=== PATIENT | female | born 1970 ===

== ENCOUNTER 2020-03-04 10:55 | Outpatient (REF) | payer OTHER, SELFPAY ==
--- NOTE | 2020-03-04 11:00 | MM_ITS ---
EXAMINATION: MM SCREENING DIGITAL BREAST TOMOSYNTHESIS, BILATERAL CLINICAL INFORMATION: Screening. Asymptomatic. Family history breast cancer, mother, maternal aunt, paternal aunt. The lifetime risk of breast cancer based on the Tyrer-Cuzick Model is 24%. COMPARISON: Mammography: 02/27/2019, 03/27/2016, 09/23/2015 TECHNIQUE: Digital breast tomosynthesis is performed in both the craniocaudal and mediolateral oblique views along with computer-aided detection (CAD). Synthesized 2D images are generated from the tomosynthesis. FINDINGS: The breasts are heterogeneously dense, which may obscure small masses (ACR BI-RADS breast composition Category c). Parenchymal pattern is similar to prior studies. Oval asymmetry anterior upper left breast in MLO view is stable. Neither breast shows significant mass or developing density or architectural abnormality. There is a biopsy clip marker again seen right breast mid upper outer quadrant. Scattered diffuse bilateral punctate calcifications are again noted on each side. There are no significant changes. MM/MM tomosynthesis screening BI IMPRESSION: No significant changes from prior exam. ASSESSMENT: BI-RADS 2: Benign RECOMMENDATION: 1. Routine annual mammography screening. 2. The lifetime risk of breast cancer based on the Tyrer-Cuzick Model is 24%. Additional annual adjunct screening with breast MRI may be of benefit in women with a risk score of 20% or greater. This patient's information was entered into a reminder system with a target due date for their next mammogram.
== END 2020-03-04 10:56 | disposition home or self-care (01) ==
LOC: HO.MAMMO 10:55
PROVIDERS: Visit Provider Advanced Practice Midwife
DX: Z12.31 Encounter for screening mammogram for malignant neoplasm of breast (principal)
CPT/HCPCS: 77063; 77067

== ENCOUNTER 2020-04-07 10:29 | Outpatient (REF) | payer OTHER, SELFPAY ==
--- NOTE | ~2020-04-07 | US_ITS ---
EXAMINATION: PELVIC ULTRASOUND CLINICAL INFORMATION: Excessive and frequent menstruation. COMPARISON: None TECHNIQUE: Transabdominal and transvaginal pelvic ultrasound was performed. Transvaginal exam was performed for better visualization of the uterus and ovaries. FINDINGS: The uterus is anteverted and measures 11.3 x 3.2 x 6.5 cm. There are multiple uterine fibroids, at least 4. These measure 6.3 x 4.7 x 5.8 cm in the right cornual region, 3.4 x 2.3 x 3 cm in the anterior uterine body, 0.7 x 0.6 x 0.7 cm in the anterior uterine body and 1.8 x 1.1 x 1.4 cm subserosal to the posterior uterine body. Endometrial thickness is normal, estimated at 1 cm. There are nabothian cysts in the cervix. The right ovary is not seen. The left ovary is normal-appearing and measures 2.2 x 1.6 x 1.8 cm. There is no fluid in the pelvis. US/US pelvic complete IMPRESSION: Fibroid uterus. Normal-appearing left ovary. Right ovary not seen.
--- NOTE | ~2020-04-07 | US_ITS ---
EXAMINATION: PELVIC ULTRASOUND CLINICAL INFORMATION: Excessive and frequent menstruation. COMPARISON: None TECHNIQUE: Transabdominal and transvaginal pelvic ultrasound was performed. Transvaginal exam was performed for better visualization of the uterus and ovaries. FINDINGS: The uterus is anteverted and measures 11.3 x 3.2 x 6.5 cm. There are multiple uterine fibroids, at least 4. These measure 6.3 x 4.7 x 5.8 cm in the right cornual region, 3.4 x 2.3 x 3 cm in the anterior uterine body, 0.7 x 0.6 x 0.7 cm in the anterior uterine body and 1.8 x 1.1 x 1.4 cm subserosal to the posterior uterine body. Endometrial thickness is normal, estimated at 1 cm. There are nabothian cysts in the cervix. The right ovary is not seen. The left ovary is normal-appearing and measures 2.2 x 1.6 x 1.8 cm. There is no fluid in the pelvis. US/US transvaginal IMPRESSION: Fibroid uterus. Normal-appearing left ovary. Right ovary not seen.
== END 2020-04-07 10:30 | disposition home or self-care (01) ==
LOC: HO.US 10:29
PROVIDERS: PCP Internal Medicine; Visit Provider Advanced Practice Midwife
DX: N92.0 Excessive and frequent menstruation with regular cycle (principal)
CPT/HCPCS: 76830; 76856

== ENCOUNTER → 2020-04-27 10:01 | Outpatient (BNVA) | payer OTHER, SELFPAY | PROVIDERS: Visit Provider Urology ==

== ENCOUNTER → 2020-05-31 09:03 | Outpatient (BNVA) | payer OTHER, SELFPAY | PROVIDERS: PCP Internal Medicine; Visit Provider Urology | DX: N39.3 Stress incontinence (female) (male) (principal) | CPT/HCPCS: 81002 ==

== ENCOUNTER 2020-07-01 13:00 | Outpatient (RCR) | payer OTHER, SELFPAY ==
--- NOTE | 2020-05-27 15:38 | MHC.PT.EP ---
[facility] [place] Office [place] Office [place] Office [address] Katheryn Hart [address] [phone] F: [phone] F: [phone] F: [phone] F: [phone] Physical Therapy Plan of Care Date of Evaluation: 05/27/20 Date of Surgery: Diagnosis: Stress Incontinence Assessment: The patient arrived reporting stress urinary incontinence. After granted patient consent an internal exam was performed and the patient was found to have decreased strength and coordination of her pelvic floor muscles. Increased tissue tension noted in the left levator ani and OI, Tenderness to palpation of the tip of cervix. Stage 2 Cystourethrocele noted with more descent in standing but it remained a stage 2. Additionally, the patient had poor PF endurance, and decreased ability to do a quick contraction of her pelvic floor. She did not exhibit a pre activation of her PFM with a cough. The patient will greatly benefit from Pelvic Floor PT in order to improve coordination, and strength of her pelvic floor muscles, as well as body mechanics training with pre activation of her PFM. I will also educate her regarding a pre activation of her PFM before coughing, sneezing, and laughing when possible to decrease strain and pressure on her pelvic floor. Frequency and Duration: The patient will be seen 1x/week x 6 weeks. Short Term Goals: 1. Pt to be able to correctly activate her PFM to allow improved support to bowel and bladder. 2. Pt to be able to demonstrate a pre contraction before a cough Intermediate Goals: 1. Pt to be able to show improved PFM contraction during functional movements such as a bridge or squat to help prevent or limit POP. 2. Pt to reduce # of episodes of WAYNE during the day by 50% to help improve quality of life and reduce pad usage. 3. Pt to be independent with her final HEP for PFM in order to help maintain gains made in therapy. Treatment Plan: Modalities to reduce pain, spasms and effusion. Manual therapy to restore motion and function. Therapeutic exercise to improve strength and flexibility. Neuromuscular re-education for posture and balance. Therapeutic activities to return to functional activities of daily living. Electronically signed by: Valarie Jane PT DPT Please sign and return to therapist. Thank you for your referral.
--- NOTE | 2020-07-01 15:35 | MHC.PT.DC ---
[facility] [place] Office [place] Office [place] [facility] [address] Katheryn Hart 140 [facility] [phone] F: [phone] F: [phone] F: [phone] F: [phone] Physical Therapy Discharge Report Diagnosis: Stress Incontinence Date of Surgery: Date of Evaluation: 05/27/20 Date of Discharge: 07/01/20 Treatments to Date: 5 Cancellations to Date: No Shows to Date: Discharge Status: Achieved Goals Improved Function Independent with HEP Discharge Summary: The patient's strength is a 3/5 with some progression toward 4/5. The patient had 12 second endurance contractions, and could perform 12 quick contractions consecutively before fatigue. She is doing a great job with her HEP. I taught her how to progress the exercises. She is down to less than 1 pad a day meaning she wears a pad but sometimes it is dry. She feels in control of her bladder habits. She filled out the bladder diary and she is showing good bladder norms with her intake, and the volume of her output and # of times using the restroom. She is d/c from skilled PT due to meeting her goals. Electronically signed by: Valarie Jane PT DPT Please sign and return to therapist. Thank you for your referral.
== END 2020-07-26 08:00 | disposition home or self-care (01) ==
LOC: HO.PT 13:00
PROVIDERS: Visit Provider Urology
DX: N39.3 Stress incontinence (female) (male) (principal)
CPT/HCPCS: 97110; 97112; 97140; 97162; 97530

== ENCOUNTER → 2020-11-29 08:29 | Outpatient (BNVA) | payer OTHER, SELFPAY | DX: N39.3 Stress incontinence (female) (male) (principal) | CPT/HCPCS: 51798 ==

== ENCOUNTER 2021-03-23 09:38 | Outpatient (REF) | payer OTHER, SELFPAY ==
--- NOTE | ~2021-03-23 | MM_ITS ---
EXAMINATION: MM SCREENING DIGITAL BREAST TOMOSYNTHESIS, BILATERAL CLINICAL INFORMATION: Screening. Asymptomatic. The lifetime risk of breast cancer based on the Tyrer-Cuzick Model is 11.3%. COMPARISON: Mammography: 03/04/2020 and studies dating back to 09/23/2015. TECHNIQUE: Digital breast tomosynthesis is performed in both the craniocaudal and mediolateral oblique views along with computer-aided detection (CAD). Synthesized 2D images are generated from the tomosynthesis. FINDINGS: There are scattered areas of fibroglandular density (ACR BI-RADS breast composition Category b). There is multiplicity and bilaterality of calcifications. There are some stable circumscribed densities within the left breast. No new abnormal dominant masses or suspicious grouping of microcalcifications identified. There is question of an area of architectural distortion about the lateral aspect mid left breast however on tomosynthesis this is seen to represent superimposition of fibroglandular tissue. MM/MM tomosynthesis screening BI IMPRESSION: There are no significant changes from prior study. ASSESSMENT: BI-RADS 2: Benign. RECOMMENDATION: Routine annual mammography screening. This patient's information was entered into a reminder system with a target due date for their next mammogram.
== END 2021-03-23 09:39 | disposition home or self-care (01) ==
LOC: HO.MAMMO 09:38
PROVIDERS: PCP Internal Medicine; Visit Provider Internal Medicine
DX: Z12.31 Encounter for screening mammogram for malignant neoplasm of breast (principal)
CPT/HCPCS: 77063; 77067

== ENCOUNTER → 2021-05-30 08:49 | Outpatient (BNVA) | payer OTHER, SELFPAY | PROVIDERS: PCP Internal Medicine | DX: N39.3 Stress incontinence (female) (male) (principal) | CPT/HCPCS: 51798 ==

== ENCOUNTER 2021-08-14 10:21 | Day surgery (SDC) | payer OTHER, SELFPAY ==
--- NOTE | 2021-08-11 12:33 | P.CONAN_ITS ---
Documented by User: Gabriella Hay NP 08/11/21 12:33 HPI - Anesthesia Eval Consult details Narrative: 51yo F for Colonoscopy PMFSH Active Problems Active Problems: All Active Problems (Updated 08/10/21 @ 11:07 by VICKY Smith) Family history of colon cancer (Acute) Colon cancer screening (Acute) GERD (gastroesophageal reflux disease) (Acute) Chronic low back pain (Acute) Stress incontinence (Acute) Mixed incontinence (Acute) Past Medical History Medical History (Updated 08/10/21 @ 11:07 by VICKY Smith) HTN (hypertension) Mild acid reflux Nephrolithiasis Renal cyst, acquired Vitiligo Family History Family History (Updated 08/10/21 @ 10:35 by Faizan Beckford) Mother Diabetes HTN (hypertension) Father HTN (hypertension) Brother Colon cancer Surgical History Surgical History History of breast surgery History of hernia repair History of lithotripsy History of tubal ligation Social History Social History (Updated 08/10/21 @ 10:33 by Faizan Beckford) Household Members: Significant Other Alcohol intake: never Patient Tobacco Use Status: Never used Tobacco Are you DNR?: No Advance Directives: No Advance Directives Information Provided: Yes Meds Allergies Allergy/AdvReac Type Severity Reaction Status Date / Time No Known Allergies Allergy Verified 08/10/21 10:29 Home Medications Medication Instructions Recorded Confirmed Last Taken Type ibuprofen 800 mg tablet 800 mg PO TID 04/27/20 08/07/21 History lisinopril 10 mg tablet 10 mg PO DAILY 04/27/20 08/14/21 History omeprazole 20 mg capsule,delayed 20 mg PO DAILY 04/27/20 Unknown History release tacrolimus 0.1 % topical ointment topical 04/27/20 Unknown History triamcinolone acetonide 0.1 % topical 04/27/20 Unknown History topical ointment norethindrone (contraceptive) 0.35 0.35 mg PO DAILY 11/29/20 Unknown History mg tablet hydrochlorothiazide 25 mg tablet 1 tab PO DAILY 08/14/21 08/14/21 08/14/21 History Exam Exam Date and Time: August 11, 2021 1233 Assessment and Plan Assessment Anesthesia Assessment: Chart Reviewed Documented by User: Lorena Muñoz MD 08/14/21 12:22 [facility] Past Medical History Medical History (Updated 08/10/21 @ 11:07 by VICKY Smith) HTN (hypertension) Mild acid reflux Nephrolithiasis Renal cyst, acquired Vitiligo Family History Family History (Updated 08/10/21 @ 10:35 by Faizan Beckford) Mother Diabetes HTN (hypertension) Father HTN (hypertension) Brother Colon cancer Family history of problems with anesthesia: No Surgical History Surgical History History of breast surgery History of hernia repair History of lithotripsy History of tubal ligation History of Problems with Anesthesia: No Social History Social History (Updated 08/10/21 @ 10:33 by Faizan Beckford) Household Members: Significant Other Alcohol intake: never Patient Tobacco Use Status: Never used Tobacco Are you DNR?: No Advance Directives: No Advance Directives Information Provided: Yes Meds Allergies Allergy/AdvReac Type Severity Reaction Status Date / Time No Known Allergies Allergy Verified 08/10/21 10:29 Home Medications Medication Instructions Recorded Confirmed Last Taken Type ibuprofen 800 mg tablet 800 mg PO TID 04/27/20 08/07/21 History lisinopril 10 mg tablet 10 mg PO DAILY 04/27/20 08/14/21 History omeprazole 20 mg capsule,delayed 20 mg PO DAILY 04/27/20 Unknown History release tacrolimus 0.1 % topical ointment topical 04/27/20 Unknown History triamcinolone acetonide 0.1 % topical 04/27/20 Unknown History topical ointment norethindrone (contraceptive) 0.35 0.35 mg PO DAILY 11/29/20 Unknown History mg tablet hydrochlorothiazide 25 mg tablet 1 tab PO DAILY 08/14/21 08/14/21 08/14/21 History Exam Airway Mallampati Class: II TM Dist: >3cm Neck ROM: Full Loose/Missing/Broken Teeth: Yes (Right lower tooth missing) Heart: [id number] Lungs: cta b/l Assessment and Plan Assessment Anesthesia Assessment: Anesthesia Plan Discussed Final Anesthetic Review Family History of Problems with Anesthesia: No History of Problems with Anesthesia: No NPO: Yes ASA Class: II Final Preanesthetic Review: No Changes in Pt Med Stat, Meds/Allgs Chart Reviewed, Consent Obtained/Reviewed and Anes Risks/Benef Reviewed Patient Risk: Intermediate Procedure Risk: Intermediate Assessment/Block/Sedation in SS: Assess/Block/Sedation-SS Anesthetic Plan Anesthetic Plan: MAC: and Agree w/ Assess. and Plan Disposition: Standard PACU
[2021-08-14 11:39] VITALS: BP 122/65; PULSE 81; RESP 17; TEMP 36.1; O2SAT 97; BMI 26.1
[2021-08-14] MEDS: Lactated Ringers 1,000 ML 100 ML IVCONT (11:55)
--- NOTE | 2021-08-14 13:09 | P.BOP_ITS ---
Brief Operative Note Date of Service: 08/14/21 Pre-op diagnosis: Colon cancer screening, family history of colon polyps and cancer (brother at age 44 yrs) Post-op diagnosis: other (Hemorrhoids, sub-optimal prep, incomplete colonoscopy) Procedure: COLONOSCOPY TILL MID ASCENDING COLON Consent: Indications for the procedure and potential complications of bleeding, perforation, reaction to medications and missed diagnosis were discussed with the patient and informed consent was obtained. Instrument: Olympus PCF H 190 L variable stiffness pediatric colonoscope Monitoring: Vital signs and clinical assessment, intermittent blood pressure monitoring, continuous EKG monitoring, Pulse oximetry and Carbon Dioxide monitoring were done throughout the procedure. Colon withdrawl time was 25 minutes. Procedure: The patient was placed in the left lateral decubitis position and pre-procedure medications were administered. After a digital rectal examination of the ano-rectum, the video colonoscope was inserted into the rectum and advanced through the colon to the mid AC. It was not possible to advance further due to excessive looping of the scope. The colonoscope was slowly withdrawn in a retrograde panoramic fashion and the colon mucosa was carefully examined including a retroflexed view of the rectum. Findings and interventions are described below. Procedure Difficulty: Pt was placed in the supine position and LLQ pressure was applied to intubate the transverse colon Findings: Terminal Ileum: Not evaluated Cecum: Not evaluated Ascending Colon: Partially evaluated Transverse Colon: Normal Descending Colon: Normal Sigmoid Colon: Normal Rectum: Normal Ano-rectum: Moderate internal hemorrhoids Colon preparation: Fair despite copious irrigation and poor in some areas of the colon due to a coating of adherent stool. No large lesions seen and smaller polyps could be missed. Impression and Post Procedure Diagnosis: Colonoscopy Findings: No polyps were detecetd Moderate hemorrhoids on retroflexed exam. Plan: Patient has an appointment on 09/13/21 in the GI Clinic with Tiffanie Solano NP . Repeat Colonoscopy in 6 to 12 months due to sub-optimal prep and incomplete colonoscopy (Adult colonoscope and Mag Citrate + Bisacodyl prep for future colonoscopies - since pt vomited part of her prep). Above findings were reviewed with the patient. Surgeon: Dixie Balderas MD Anesthesia: MAC (Dr Chew) Was an Ict Support Technicians used for this Procedure?: Yes Ict Support Technicians: Chiara Abernathy Estimated blood loss (mL): 0 Pathology: none sent Condition: stable Disposition: PACU
--- NOTE | 2021-08-14 13:09 | MHC.SHP ---
Pre-Procedural Eval Section A Date of Service: 08/14/21 The patient is an INPATIENT: No Changes since office visit: Yes Patient answered all questions; No Cold of Flu in the past 2 weeks, No New Medical Problems and No Changes in Medication The History & Physical has been completed within 30 days and I have reviewed it.: Yes Section B Chief Complaint: screening,hx of malignant neoplasm Allergies: Allergies Allergy/AdvReac Type Severity Reaction Status Date / Time No Known Allergies Allergy Verified 08/10/21 10:29 Plan I have reviewed the history and physical and performed a pertinent physical examination on my patient. No changes have occurred unless specified.
--- NOTE | 2021-08-14 14:15 | W.PM.OPN ---
Operative Note Operative Note Date of Service: 08/14/21 Narrative: Pre-op diagnosis: Colon cancer screening, family history of colon polyps and cancer (brother at age 44 yrs) Post-op diagnosis:?other (Hemorrhoids, sub-optimal prep, incomplete colonoscopy) Procedure: COLONOSCOPY TILL MID ASCENDING COLON Consent: Indications for the procedure and potential complications of bleeding, perforation, reaction to medications and missed diagnosis were discussed with the patient and informed consent was obtained. Instrument: Olympus PCF H 190 L variable stiffness pediatric colonoscope Monitoring: Vital signs and clinical assessment, intermittent blood pressure monitoring, continuous EKG monitoring, Pulse oximetry and Carbon Dioxide monitoring were done throughout the procedure. Colon withdrawl time was 25 minutes. Procedure: The patient was placed in the left lateral decubitis position and pre-procedure medications were administered. After a digital rectal examination of the ano-rectum, the video colonoscope was inserted into the rectum and advanced through the colon to the mid AC. It was not possible to advance further due to excessive looping of the scope.? The colonoscope was slowly withdrawn in a retrograde panoramic fashion and the colon mucosa was carefully examined including a retroflexed view of the rectum. Findings and interventions are described below. Procedure Difficulty: Pt was placed in the supine position and LLQ pressure was applied to intubate the transverse colon Findings: Terminal Ileum: Not evaluated Cecum:? Not evaluated Ascending Colon:? Partially evaluated Transverse Colon:? Normal Descending Colon:? Normal Sigmoid Colon:? Normal Rectum:? Normal Ano-rectum:? Moderate internal hemorrhoids Colon preparation: Fair despite copious irrigation and poor in some areas of the colon due to a coating of adherent stool.? No large lesions seen and smaller polyps could be missed. Impression and Post Procedure Diagnosis: Colonoscopy Findings: ?No polyps were detecetd Moderate hemorrhoids on retroflexed exam. Plan: Patient has an appointment on 09/13/21 in the GI Clinic with? Tiffanie Solano NP . Repeat Colonoscopy in 6 to 12 months due to sub-optimal prep and incomplete colonoscopy (Adult colonoscope and Mag Citrate + Bisacodyl prep for future colonoscopies - since pt vomited part of her prep). Surgeon: Dixie Balderas MD Anesthesia:?MAC (Dr Chew) Was an Customer Training Specialist used for this Procedure?:?Yes Customer Training Specialist:?Chiara Abernathy Estimated blood loss (mL):?0 Pathology:?none sent Condition:?stable Disposition:?PACU
[2021-08-14 14:16] VITALS: BP 115/75; PULSE 67; RESP 16; TEMP 36.4; O2SAT 94
[2021-08-14 14:31] VITALS: BP 117/73; PULSE 60; RESP 23; O2SAT 96
[2021-08-14 14:46] VITALS: BP 116/67; PULSE 58; RESP 15; O2SAT 97
[2021-08-14 15:01] VITALS: BP 114/72; PULSE 50; RESP 15; TEMP 36.4; O2SAT 94
== END 2021-08-14 15:15 | disposition home or self-care (01) ==
PROVIDERS: PCP Internal Medicine; Visit Provider Internal Medicine Gastroenterology
PROC: 0DJD8ZZ Inspection of Lower Intestinal Tract, Via Natural or Artificial Opening Endoscopic (ICD-10-PCS; CPT 45378; principal; 2021-08-14 12:40)
DX: Z12.11 Encounter for screening for malignant neoplasm of colon (principal); Z80.0 Family history of malignant neoplasm of digestive organs; Z83.71 Family history of colonic polyps; K64.8 Other hemorrhoids; I10 Essential (primary) hypertension; K21.9 Gastro-esophageal reflux disease without esophagitis; L80 Vitiligo; Z87.442 Personal history of urinary calculi; Z79.1 Long term (current) use of non-steroidal anti-inflammatories (NSAID); Z79.899 Other long term (current) drug therapy
CPT/HCPCS: 45378

== ENCOUNTER → 2021-09-01 08:31 | Outpatient (BNVA) | payer OTHER, SELFPAY | PROVIDERS: PCP Internal Medicine | DX: N39.46 Mixed incontinence (principal); R33.9 Retention of urine, unspecified | CPT/HCPCS: 51798 ==

== ENCOUNTER → 2022-03-02 09:22 | Outpatient (BNVA) | payer OTHER, SELFPAY | PROVIDERS: PCP Internal Medicine; Visit Provider Nurse Practitioner Family | DX: R33.9 Retention of urine, unspecified (principal); N39.46 Mixed incontinence | CPT/HCPCS: 51798 ==

== ENCOUNTER 2022-05-25 08:57 | Outpatient (REF) | payer OTHER, SELFPAY ==
--- NOTE | ~2022-05-25 | MM_ITS ---
EXAMINATION: MM DIAGNOSTIC DIGITAL BREAST TOMOSYNTHESIS, BILATERAL US TARGETED BREAST, BILATERAL CLINICAL INFORMATION: Right breast lump for 3 months, upper outer quadrant The lifetime risk of breast cancer based on the Tyrer-Cuzick Model is 7%. COMPARISON: Mammography: 03/23/2021 and studies dating back to 09/23/2015 TECHNIQUE: Digital breast tomosynthesis is performed in both the craniocaudal and mediolateral oblique views along with computer-aided detection (CAD). Synthesized 2D images are generated from the tomosynthesis. Right exaggerated craniocaudal view also performed. Bilateral targeted breast ultrasound. FINDINGS: There are scattered areas of fibroglandular density (ACR BI-RADS breast composition Category b). Within the right breast, there is again noted to be a circumscribed density about the upper outer aspect with a clip within it from previous biopsy. In the region of palpable abnormality, no mammographic abnormality is seen. No new abnormal dominant mass or suspicious grouping of microcalcifications is seen. Within the left breast, there are some scattered circumscribed densities present. No suspicious grouping of microcalcification is noted. Targeted right breast ultrasound did not demonstrate any abnormal cystic or solid lesion within the palpable region. No parenchymal edema is seen. No distal sound shadowing is noted. About the left breast, there are noted to be multiple hypoechoic cystic structures present with a complex cystic lesion measuring approximately 5 x 3 mm in size, 8 o'clock position 3 cm from the nipple. At the 8 to 9 o'clock position, there are multiple hypoechoic lesions without distal sound shadowing. No edematous change within the parenchyma is noted. Results are discussed with the patient at time of visit. MM/MM tomosynthesis diagnostic BI IMPRESSION: 1. No significant right breast abnormality appreciated. 2. Multiple left breast cystic structures as described with one either complex cystic or solid lesion without internal vascularity or distal sound shadowing at the 3 o'clock position. Six-month follow-up ultrasound is recommended for re-evaluation of the bilateral left breast lesions. ASSESSMENT: BI-RADS 3: Probably Benign RECOMMENDATION: Diagnostic left breast ultrasound in 6 months. This patient's information was entered into a reminder system with a target due date for their next mammogram.
== END 2022-05-25 08:58 | disposition home or self-care (01) ==
LOC: HO.MAMMO 08:57
PROVIDERS: PCP Internal Medicine; Visit Provider Internal Medicine
DX: R92.2 Inconclusive mammogram (principal); N63.11 Unspecified lump in the right breast, upper outer quadrant; N60.02 Solitary cyst of left breast
CPT/HCPCS: 76642; 77062; 77066

== ENCOUNTER 2022-07-19 06:52 | Day surgery (SDC) | payer OTHER, SELFPAY ==
[2022-07-17 12:41] VITALS: BMI 31.7
--- NOTE | 2022-07-18 12:35 | HO.ANESPROP2 ---
Documented by User: Gabriella Hay NP 07/18/22 12:36 HPI - Anesthesia Eval Consult details Narrative: 51yo F for Colonoscopy PMFSH Active Problems Active Problems: All Active Problems (Updated 09/13/21 @ 15:12 by VICKY Smith) Nausea and vomiting (Acute) Retention, urine (Acute) Family history of colon cancer (Acute) Colon cancer screening (Acute) GERD (gastroesophageal reflux disease) (Acute) Chronic low back pain (Acute) Stress incontinence (Acute) Mixed incontinence (Acute) Past Medical History Medical History HTN (hypertension) Mild acid reflux Nephrolithiasis Renal cyst, acquired Retention, urine Vitiligo Family History Family History Mother Diabetes HTN (hypertension) Father HTN (hypertension) Brother Colon cancer Family history of problems with anesthesia: No Surgical History Surgical History History of breast surgery History of hernia repair History of lithotripsy History of tubal ligation Hx of colonoscopy History of Problems with Anesthesia: No Social History Social History Household Members: Significant Other Alcohol intake: never Patient Tobacco Use Status: Never used Tobacco Meds Allergies Allergy/AdvReac Type Severity Reaction Status Date / Time No Known Allergies Allergy Verified 03/02/22 09:53 Home Medications Medication Instructions Recorded Confirmed Last Taken Type omeprazole 20 mg capsule,delayed 20 mg PO DAILY 04/27/20 03/02/22 Unknown History release lisinopril 20 mg tablet 20 mg PO DAILY 09/13/21 03/02/22 Unknown History Exam Exam Date and Time: July 18, 2022 1235 Height,Weight and Vital Signs: Height 4 ft 11 in Weight 71.214 kg Assessment and Plan Assessment Anesthesia Assessment: Chart Reviewed Final Anesthetic Review Family History of Problems with Anesthesia: No History of Problems with Anesthesia: No Documented by User: Allen Juarez MD 07/19/22 18:14 [facility] Past Medical History Medical History HTN (hypertension) Mild acid reflux Nephrolithiasis Renal cyst, acquired Retention, urine Vitiligo Functional capacity: independent ambulation Family History Family History Mother Diabetes HTN (hypertension) Father HTN (hypertension) Brother Colon cancer Surgical History Surgical History History of breast surgery History of hernia repair History of lithotripsy History of tubal ligation Hx of colonoscopy Social History Social History Household Members: Significant Other Alcohol intake: never Patient Tobacco Use Status: Never used Tobacco Meds Allergies Allergy/AdvReac Type Severity Reaction Status Date / Time No Known Allergies Allergy Verified 03/02/22 09:53 Home Medications Medication Instructions Recorded Confirmed Last Taken Type omeprazole 20 mg capsule,delayed 20 mg PO DAILY 04/27/20 03/02/22 Unknown History release lisinopril 20 mg tablet 20 mg PO DAILY 09/13/21 03/02/22 Unknown History Exam Airway Mallampati Class: III TM Dist: >3cm Neck ROM: Full Loose/Missing/Broken Teeth: Yes (missing and chipped teeth ) Assessment and Plan Assessment Anesthesia Assessment: Anesthesia Plan Discussed Final Anesthetic Review NPO: Yes ASA Class: II Final Preanesthetic Review: Meds/Allgs Chart Reviewed, Consent Obtained/Reviewed and Anes Risks/Benef Reviewed Patient Risk: Intermediate Procedure Risk: Intermediate Anesthetic Plan Anesthetic Plan: MAC: and Agree w/ Assess. and Plan Disposition: Standard PACU
--- NOTE | 2022-07-19 08:08 | MHC.SHP ---
Pre-Procedural Eval Section A Date of Service: 07/19/22 Section B Chief Complaint: Family history of malignant neoplasm, screening Details of Present Illness: brother with CRC at age 44 -- Her mother had colon polyps. Relevant Family History (Specify if Yes): Yes Relevant Social History: None Present Medications: see Short Stay Collaborative assessment Medical History: Significant History (HTN (hypertension) Mild acid reflux Nephrolithiasis Renal cyst, acquired Retention, urine Vitiligo) History of Previous Operations: Relevant previous surgery/procedure and date(s) (History of breast surgery History of hernia repair History of lithotripsy History of tubal ligation Hx of colonoscopy) Allergies: Allergies Allergy/AdvReac Type Severity Reaction Status Date / Time No Known Allergies Allergy Verified 03/02/22 09:53 Review of Systems Sugical H&P ROS: Negative: Constitution, Cardiovascular, Respiratory, Neurological, Psychiatric, Hem-Onc, Allergic/Immunologic, Gastrointestinal, Genitourinary, Musculoskeletal, Integumentary, Endocrine and Eyes/Ears/Nose/Throat Exam Surgical H&P Exam: Normal: HEENT, Normal: Heart, Normal: Lungs, Normal: Extremities, Normal: Abdomen, Normal: Skin and Normal: Neurological Plan Diagnosis/Plan: Unchanged I have reviewed the history and physical and performed a pertinent physical examination on my patient. No changes have occurred unless specified. Time Spent With Patient Time: Total time managing care of this patient today ____ minutes.
--- NOTE | 2022-07-19 08:12 | W.PM.OPN ---
Operative Note Operative Note Date of Service: 07/19/22 Narrative: Operative Information Procedure Description: Colonoscopy Indication: screening, FH of CRC Anesthesia: MAC COLONOSCOPY Instrument: Olympus variable stiffness ADULT scope 190L Colonoscopy Monitoring: Vital signs and clinical assessment, continuous EKG monitoring, Pulse oximetry, Carbon Dioxide monitoring and blood pressure monitoring were done throughout the procedure. Colon withdrawal time was 10 minutes. Procedure: The patient was placed in the left lateral decubitis position and pre-procedure medications were administered. After a digital rectal examination of the ano-rectum, the video colonoscope was inserted into the rectum and advanced through the colon to the cecum/TI. The colonoscope was slowly withdrawn in a retrograde panoramic fashion and the colon mucosa was carefully examined including a retroflexed view of the rectum. Findings and interventions are described below. Procedure Difficulty: difficult Findings: Terminal Ileum-normal Melanosis coli noted, tortuous colon Cecum:normal Ascending Colon: normal Transverse Colon -normal Descending Colon:normal Sigmoid Colon: normal Rectum: Retroflexion with small internal hemorrhoids, grade I Anorectum - normal Colon preparation: [place] Bowel Preparation Scale Right colon; 3 Transverse colon: 2 Left colon; 2 (0 = Unprepared colon segment with mucosa not seen due to solid stool that cannot be cleared. 1 = Portion of mucosa of the colon segment seen, but other areas of the colon segment not well seen due to staining, residual stool and/or opaque liquid. 2 = Minor amount of residual staining, small fragments of stool and/or opaque liquid, but mucosa of colon segment seen well. 3 = Entire mucosa of colon segment seen well with no residual staining, small fragments of stool or opaque liquid) Impression and Post Procedure Diagnosis: melanosis coli tortuous colon internal hemorrhoids Plan: High fiber diet leaflet Avoid straining at stool, epsom salts and sitz bath, anusol supps or cream Repeat Colonoscopy in 5 years due to FH of cRC or earlier if clinically indicated Above findings were reviewed with the patient and relevant handouts were provided if indicated.
[2022-07-19 08:47] VITALS: BP 103/65; PULSE 102; RESP 16; TEMP 37; O2SAT 96
[2022-07-19 09:02] VITALS: BP 121/71; PULSE 86; RESP 18; TEMP 36.5; O2SAT 100
== END 2022-07-19 09:45 | disposition home or self-care (01) ==
PROVIDERS: PCP Internal Medicine; Visit Provider Internal Medicine Gastroenterology
PROC: 0DJD8ZZ Inspection of Lower Intestinal Tract, Via Natural or Artificial Opening Endoscopic (ICD-10-PCS; CPT 45378; principal; 2022-07-19 08:10)
DX: Z12.11 Encounter for screening for malignant neoplasm of colon (principal); Z80.0 Family history of malignant neoplasm of digestive organs; K63.89 Other specified diseases of intestine; K64.0 First degree hemorrhoids; Q43.8 Other specified congenital malformations of intestine; K21.9 Gastro-esophageal reflux disease without esophagitis; I10 Essential (primary) hypertension; L80 Vitiligo; Z79.899 Other long term (current) drug therapy; Z98.890 Other specified postprocedural states; Z87.442 Personal history of urinary calculi
CPT/HCPCS: 45378

== ENCOUNTER 2022-11-30 12:30 | Outpatient (REF) | payer OTHER, SELFPAY | END 2022-11-30 12:31 | disposition home or self-care (01) | LOC: HO.MAMMO 12:30 | PROVIDERS: PCP Internal Medicine; Visit Provider Internal Medicine | DX: N60.02 Solitary cyst of left breast (principal) | CPT/HCPCS: 76642 ==

== ENCOUNTER → 2022-11-30 13:00 | Outpatient (BNV) | payer OTHER, SELFPAY | PROVIDERS: PCP Internal Medicine; Visit Provider Radiology Diagnostic Radiology | DX: N60.09 Solitary cyst of unspecified breast (principal) | CPT/HCPCS: 76642 ==

== ENCOUNTER 2023-03-01 09:13 | Outpatient (AMB) | payer OTHER, SELFPAY ==
--- NOTE | 2023-03-01 09:26 | MHC.OFFVIS ---
Intake Intake Visit Reasons: 1yr follow up/PVR Intake Note: Patient is present for follow up PVR/Urinary Retention/Incontinence Urology Medication: none Blood Thinner: none Tamazight Speaking PVR: 21ml's Round Cutter Operator Required: Yes Round Cutter Operator Name: DASHA VERGARACONY Accompanied by: Self / Same As Patient Allergies No Known Allergies Allergy (Verified 03/01/23 09:41) Medication List - Last Reconciled 03/01/23 by HAIR Diallo lisinopril 20 mg PO DAILY omeprazole 20 mg PO DAILY ondansetron HCl 4 mg PO BID-TID PRN 14 days HPI HPI Comments History of Present Illness Details Floresita is a pleasant 52 year old Tamazight speaking patient of Dr. Beatriz Gonzalez. She has a past medical history of nephrolithiasis, vitiligo, GERD, hypertension, and renal cysts. She presents to the office today for a follow up of her lower urinary tract symptoms and nephrolithiasis. In discussion with the patient today she reports to be doing and feeling well since her last office visit here approximately 1 year ago. She reports continuing with pelvic floor exercises at home. She reports having increased her water intake and has found this helpful. She reports having noted herself to have urinated a kidney stone a few months ago and believes this is related to her increase in water intake. She currently denies any bothersome urinary issues or concerns. She denies urinary urgency, urinary frequency, incontinence, nocturia, hematuria, dysuria, foul smelling urine, changes to urinary stream, flank pain, fever, and or chills. She is happy with her current voiding parameters. In office urinalysis results reviewed with the patient today. PVR 21 mLs. She otherwise offers no issues or concerns at this time. [facility] Medical History (Updated 03/01/23 @ 09:41 by HAIR Diallo) Retention, urine Nephrolithiasis Vitiligo Mild acid reflux HTN (hypertension) Renal cyst, acquired Surgical History Hx of colonoscopy History of lithotripsy History of hernia repair History of breast surgery History of tubal ligation Family History Mother Diabetes HTN (hypertension) Father HTN (hypertension) Brother Colon cancer Social History Household Members: Significant Other Alcohol intake: never Patient Tobacco Use Status: Never used Tobacco Review of Systems Eyes Reports no additional complaints ENT Reports no additional complaints Card Reports no additional complaints Resp Reports no additional complaints GI Reports as per HPI Reports as per HPI Musc Reports no additional complaints Skin/Breast Reports as per HPI Neuro Reports no additional complaints Psych Reports no additional complaints Endo Reports no additional complaints Physical Exam Const General: cooperative, healthy appearing, comfortable, no acute distress, well developed, alert and awake Orientation/consciousness: patient oriented x3 Limitations: no limitations HEENT Head: Yes normal to inspection, Yes normocephalic and Yes atraumatic Ears: hearing grossly normal bilaterally Eyes General: appearance normal, both eyes and all related structures Neck Neck: Yes normal visual inspection and Yes trachea midline Chest Chest palpation & inspection: normal inspection of the chest Resp Effort & Inspection: normal respiratory effort and able to speak in complete sentences Cardio Rate: regular rate GI Inspection: Yes normal to inspection General: Yes no CVA tenderness Back/Spine/Pelvis Back: no CVA tenderness Skin General skin exam: no rashes or lesions noted Neuro General: patient oriented x3 Extrem General: Yes normal to inspection Psych Appearance: grossly normal and well kempt Mental Status: mental status grossly normal Speech and movement: Normal speech and movement present and Clear speech present Affect: normal affect Attitude: cooperative Thought process: Normal thought process present Thought content: Normal thought content present Insight: Good insight present (Psych) Judgement: Good judgement present (Psych) Office Procedures Post Void Residual Post Residual Void Post Void Residual (PVR): 21 [id number] Void Residual by ultrasound Results AMB Urinalysis, Automated UA Leukoctes 0 Juan/uL Last Edit by Simon Paige on 03/01/23 09:34 UA Nitrite Negative Last Edit by Simon Paige on 03/01/23 09:34 UA Urobilinogen 0.2 mg/dL Last Edit by Simon Paige on 03/01/23 09:34 UA Protein 0 mg/dL Last Edit by Simon Paige on 03/01/23 09:34 UA pH 5.5 Last Edit by Simon Paige on 03/01/23 09:34 UA Blood 0 Skinny/uL Last Edit by Simon Paige on 03/01/23 09:34 UA Specific Boring 1.025 Last Edit by Simon Paige on 03/01/23 09:34 UA Ketone Negative Last Edit by Simon Paige on 03/01/23 09:34 UA Bilirubin 0 mg/dL Last Edit by Simon Paige on 03/01/23 09:34 UA Glucose 0 mg/dL Last Edit by Simon Paige on 03/01/23 09:34 Results Reviewed Results Reviewed: Laboratory Last Values Urine pH (Auto) 5.5 03/01/23 09:33 Specific Boring (Auto) 1.025 03/01/23 09:33 Urine Protein (Auto) 0 mg/dL 03/01/23 09:33 Glucose (UA)(Auto) 0 mg/dL 03/01/23 09:33 Urine Ketones (Auto) Negative 03/01/23 09:33 Urine Blood (Auto) 0 Skinny/uL 03/01/23 09:33 Urine Nitrite (Auto) Negative 03/01/23 09:33 Urine Bilirubin (Auto) 0 mg/dL 03/01/23 09:33 Urine Urobilinogen (Auto) 0.2 mg/dL 03/01/23 09:33 Leukocyte Esterase (Auto) 0 Juan/uL 03/01/23 09:33 Assessment & Plan Assessment & Plan (1) Nephrolithiasis: Code(s): N20.0 - Calculus of kidney Plan In office urinalysis results reviewed with the patient today. PVR room 21 mL. Will obtain retroperitoneal ultrasound for further assessment evaluation. Patient currently denies any bothersome urinary issues or concerns. She is happy with her current voiding parameters. Continue with pelvic floor exercises at home as discussed. Continue, educated, and stressed the importance of drinking plenty of water daily. Continue adding 1 oz of lemon juice to water daily. Follow-up in 6-8 weeks with imaging to be completed prior; or sooner with any issues, concerns, and or questions. Orders: Orders AMB Urinalysis Automated 03/01/23 Z13.9 - Encounter for screening, unspecified AMB Post Void Residual by ultrasound 03/01/23 N39.3 - Stress incontinence (female) (male) US retroperitoneal comp 03/01/23 N20.0 - Calculus of kidney, R33.9 - Retention of urine, unspecified Patient Instructions: The patient had an opportunity to ask questions regarding the treatment plan. All questions were answered. Physical exam, labs, and imaging were discussed and reviewed in detail. As well as risks, benefits, and discussion of treatment choices. No major barriers to understanding were identified. The patient expressed understanding and agreement with the above treatment plan. The patient was made aware they should contact our office by phone for worsening of their current condition, the appearance of new symptoms, or with any questions or concerns. Compliance is encouraged with any medications and follow up testing that is ordered. It is a privilege to be allowed the opportunity to participate in? your urological care.? Again, if you have any questions or concerns If you have any questions or concerns please do not hesitate to contact me. The office is [phone]. This note is constructed using voice recognition software. While every effort has been made to ensure accuracy crew manager errors may have been included. Yours sincerely, HAIR Diallo Coding Level of Care Code Est Pt Level 3 (20690) Diagnoses Nephrolithiasis N20.0 CPT Codes Post Residual Void - PVR CPT Code: 32829-Skym Void Residual by ultrasound ([id number])
== END 2023-03-01 09:42 | disposition home or self-care (01) ==
PROVIDERS: PCP Internal Medicine; Visit Provider Nurse Practitioner Family
DX: N20.0 Calculus of kidney (principal)
CPT/HCPCS: 99213

== ENCOUNTER → 2023-03-01 09:13 | Outpatient (BNVA) | payer OTHER, SELFPAY | PROVIDERS: Visit Provider Nurse Practitioner Family | DX: N20.0 Calculus of kidney (principal); N39.3 Stress incontinence (female) (male); R33.9 Retention of urine, unspecified | CPT/HCPCS: 51798; 81003 ==

== ENCOUNTER 2023-05-22 09:35 | Outpatient (REF) | payer OTHER, SELFPAY ==
--- NOTE | ~2023-05-22 | US_ITS ---
EXAMINATION: US RETROPERITONEAL COMPLETE (RENAL) CLINICAL INFORMATION: Retention of urine, unspecified. COMPARISON: Ultrasound kidneys 01/31/2018 and 01/29/2017. CT abdomen and pelvis 12/06/2015. TECHNIQUE: Real-time imaging of the kidneys and bladder. FINDINGS: RIGHT KIDNEY: 10.1 x 4.1 x 4.5 cm (SAG x AP x TRV). The kidney is normal in size, contour, and echogenicity. Renal cortical thickness is normal. No hydronephrosis. 1.7 x 1.3 x 1.8 cm cyst with a thin septation is seen in the mid to lower pole. This is benign in appearance. No imaging follow-up is recommended. 0.4 x 0.3 x 0.4 cm nonobstructing upper pole calculus is seen. LEFT KIDNEY: 10.4 x 5.3 x 4.9 cm (SAG x AP x TRV). The kidney is normal in size, contour, and echogenicity. Renal cortical thickness is normal. No calculi or focal parenchymal lesions. No hydronephrosis. BLADDER: Well distended and normal. Bilateral ureteral jets are demonstrated. Prevoid bladder volume is 331.5 mL. Postvoid bladder volume is 35.8 mL. US/US retroperitoneal comp IMPRESSION: 1. 1.8 cm cyst with a thin septation in the mid to lower pole of the right kidney. This is benign in appearance. No imaging follow-up is recommended. 2. 0.4 cm nonobstructing calculus in the upper pole of the right kidney. 3. Normal appearance of the left kidney. 4. Small post void residual.
== END 2023-05-22 09:36 | disposition home or self-care (01) ==
LOC: HO.US 09:35
PROVIDERS: PCP Internal Medicine; Visit Provider Nurse Practitioner Family
DX: R33.9 Retention of urine, unspecified (principal); N20.0 Calculus of kidney
CPT/HCPCS: 76770

== ENCOUNTER 2023-05-31 07:56 | Outpatient (REF) | payer OTHER, SELFPAY ==
--- NOTE | ~2023-05-31 | MM_ITS ---
EXAMINATION: MM SCREENING DIGITAL BREAST TOMOSYNTHESIS, BILATERAL CLINICAL INFORMATION: Screening. Asymptomatic. COMPARISON: Mammography: This study is compared with prior exams dating back to 2019. TECHNIQUE: Digital breast tomosynthesis is performed in both the craniocaudal and mediolateral oblique views along with computer-aided detection (CAD). Synthesized 2D images are generated from the tomosynthesis. FINDINGS: There are scattered areas of fibroglandular density (ACR BI-RADS breast composition Category b). There are no significant masses, abnormal calcifications, or other abnormalities. There is a tissue marker present in the upper outer quadrant of the right breast from prior benign percutaneous biopsy. MM/MM tomosynthesis screening BI IMPRESSION: No mammographic evidence of malignancy. ASSESSMENT: BI-RADS BI-RADS 2 - Benign Findings RECOMMENDATION: Routine annual mammography screening. 1 year F/U This examination should not preclude the clinical evaluation of a suspicious palpable abnormality. This patient's information was entered into a reminder system with a target due date for their next mammogram.
== END 2023-05-31 07:57 | disposition home or self-care (01) ==
LOC: HO.MAMMO 07:56
PROVIDERS: PCP Internal Medicine; Visit Provider Internal Medicine
DX: Z12.31 Encounter for screening mammogram for malignant neoplasm of breast (principal)
CPT/HCPCS: 77063; 77067; 81003

== ENCOUNTER → 2023-05-31 08:30 | Outpatient (BNV) | payer OTHER, SELFPAY | PROVIDERS: PCP Internal Medicine; Visit Provider Radiology Diagnostic Radiology | DX: Z12.31 Encounter for screening mammogram for malignant neoplasm of breast (principal) | CPT/HCPCS: 77063; 77067 ==

== ENCOUNTER 2023-05-31 09:33 | Outpatient (AMB) | payer OTHER, SELFPAY ==
--- NOTE | 2023-05-31 10:01 | A.OFFVIS_ITS ---
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 Beatriz Gonzalez. She has a past medical history of nephrolithiasis, vitiligo, GERD, hypertension, and renal cysts. She presents to the office today for a follow up of her nephrolithiasis. Of note, patient was seen approximately 3 months ago as a new patient for nephrolithiasis at which time a retroperitoneal ultrasound was ordered for further assessment evaluation. These results reviewed with the patient today. Bilateral kidneys with no hydronephrosis. Right kidney with 1.8 cyst with a thin septation in the mid to lower pole requiring no imaging follow-up per radiology report. 4 mm nonobstructing upper pole calculus is seen. Left kidney with no nephrolithiasis. The bladder is well distended and normal. Pre void bladder volume is approximately 330 mL. Postvoid bladder volume is approximately 35 mL. In discussion with the patient today she reports to be doing and feeling well. She denies any bothersome urinary issues or concerns. She denies urinary urgency, urinary frequency, incontinence, nocturia, hematu jimmy, dysuria, foul smelling urine, changes to urinary stream, flank pain, fever, and or chills. She is happy with her current voiding parameters. In office urinalysis results reviewed with the patient today. She otherwise offers no issues or concerns at this time. [facility] Medical History Retention, urine Nephrolithiasis Vitiligo Mild acid reflux HTN (hypertension) Renal cyst, acquired Surgical History Hx of colonoscopy History of lithotripsy History of hernia repair History of breast surgery History of tubal ligation Family History Mother Diabetes HTN (hypertension) Father HTN (hypertension) Brother Colon cancer Social History Household Members: Significant Other Alcohol intake: never Patient Tobacco Use Status: Never used Tobacco Review of Systems Eyes Reports no additional complaints ENT Reports no additional complaints Card Reports no additional complaints Resp Reports no additional complaints GI Reports as per HPI Reports as per HPI Musc Reports no additional complaints Skin/Breast Reports as per HPI Neuro Reports no additional complaints Psych Reports no additional complaints Endo Reports no additional complaints Physical Exam Const General: cooperative, healthy appearing, comfortable, no acute distress, well developed, alert and awake Orientation/consciousness: patient oriented x3 Limitations: no limitations HEENT Head: Yes normal to inspection, Yes normocephalic and Yes atraumatic Ears: hearing grossly normal bilaterally Eyes General: appearance normal, both eyes and all related structures Neck Neck: Yes normal visual inspection and Yes trachea midline Chest Chest palpation & inspection: normal inspection of the chest Resp Effort & Inspection: normal respiratory effort and able to speak in complete sentences Cardio Rate: regular rate GI Inspection: Yes normal to inspection General: Yes no CVA tenderness Back/Spine/Pelvis Back: no CVA tenderness Skin General skin exam: no rashes or lesions noted Neuro General: patient oriented x3 Extrem General: Yes normal to inspection Psych Appearance: grossly normal and well kempt Mental Status: mental status grossly normal Speech and movement: Normal speech and movement present and Clear speech present Affect: normal affect Attitude: cooperative Thought process: Normal thought process present Thought content: Normal thought content present Insight: Good insight present (Psych) Judgement: Good judgement present (Psych) Results AMB Urinalysis, Automated UA Leukoctes 0 Juan/uL Last Edit by ECO-SAFE Royal on 05/31/23 10:11 UA Nitrite Negative Last Edit by Kateevasilvio Paige on 05/31/23 10:11 UA Urobilinogen 0.2 mg/dL Last Edit by EstradaBookingPalsilvio Paige on 05/31/23 10:11 UA Protein 15 mg/dL Last Edit by EstradaBookingPalsilvio Paige on 05/31/23 10:11 UA pH 6.0 Last Edit by Kateevasilvio Paige on 05/31/23 10:11 UA Blood 0 Skinny/uL Last Edit by Kateevasilvio Paige on 05/31/23 10:11 UA Specific [place] 1.015 Last Edit by Simon Paige on 05/31/23 10:11 UA Ketone Negative Last Edit by Simon Paige on 05/31/23 10:11 UA Bilirubin 0 mg/dL Last Edit by Simon Paige on 05/31/23 10:11 UA Glucose mg/dL Last Edit by Simon Paige on 05/31/23 10:11 Results Reviewed Results Reviewed: Date of Service: 05/22/23 EXAMINATION: US RETROPERITONEAL COMPLETE (RENAL) FINDINGS: RIGHT KIDNEY: 10.1 x 4.1 x 4.5 cm (SAG x AP x TRV). The kidney is normal in size, contour, and echogenicity. Renal cortical thickness is normal. No hydronephrosis. 1.7 x 1.3 x 1.8 cm cyst with a thin septation is seen in the mid to lower pole. This is benign in appearance. No imaging follow-up is recommended. 0.4 x 0.3 x 0.4 cm nonobstructing upper pole calculus is seen. LEFT KIDNEY: 10.4 x 5.3 x 4.9 cm (SAG x AP x TRV). The kidney is normal in size, contour, and echogenicity. Renal cortical thickness is normal. No calculi or focal parenchymal lesions. No hydronephrosis. BLADDER: Well distended and normal. Bilateral ureteral jets are demonstrated. Prevoid bladder volume is 331.5 mL. Postvoid bladder volume is 35.8 mL. IMPRESSION: 1. 1.8 cm cyst with a thin septation in the mid to lower pole of the right kidney. This is benign in appearance. No imaging follow-up is recommended. 2. 0.4 cm nonobstructing calculus in the upper pole of the right kidney. 3. Normal appearance of the left kidney. 4. Small post void residual. Assessment & Plan Assessment & Plan (1) Nephrolithiasis: Code(s): N20.0 - Calculus of kidney (2) Renal cyst: Code(s): N28.1 - Cyst of kidney, acquired Plan In office urinalysis results reviewed with the patient today; as noted above. Recent retroperitoneal ultrasound results reviewed with the patient today; as noted above. Discussed at length potential causes of renal cysts and nephrolithiasis. Will continue with surveillance monitoring of nephrolithiasis as well as renal cyst. Discussed, educated, and stressed the importance of drinking plenty of water daily. Continue adding 1 oz of lemon juice to water daily. Start vitamin B6 as discussed and prescribed. Patient currently denies any bothersome urinary issues or concerns. She reports be happy with current voiding parameters. Will obtain renal ultrasound in 6 months. Follow-up in 6 months with imaging to be completed prior; or sooner with any issues, concerns, and or questions. Orders: Orders AMB Urinalysis Automated Today Z13.9 - Encounter for screening, unspecified Medications: New pyridoxine (vitamin B6) 100 mg PO DAILY 90 days 90 tabs 1RF Patient Instructions: The patient had an opportunity to ask questions regarding the treatment plan. All questions were answered. Physical exam, labs, and imaging were discussed and reviewed in detail. As well as risks, benefits, and discussion of treatment choices. No major barriers to understanding were identified. The patient expressed understanding and agreement with the above treatment plan. The patient was made aware they should contact our office by phone for worsening of their current condition, the appearance of new symptoms, or with any questions or concerns. Compliance is encouraged with any medications and follow up testing that is ordered. It is a privilege to be allowed the opportunity to participate in? your urological care.? Again, if you have any questions or concerns If you have any questions or concerns please do not hesitate to contact me. The office is [phone]. This note is constructed using voice recognition software. While every effort has been made to ensure accuracy post doctoral fellow errors may have been included. Yours sincerely, HAIR Diallo Coding Level of Care Code Est Pt Level 4 (36485) Diagnoses Nephrolithiasis N20.0 Renal cyst N28.1
== END 2023-05-31 10:29 | disposition home or self-care (01) ==
PROVIDERS: PCP Internal Medicine; Visit Provider Nurse Practitioner Family
DX: N20.0 Calculus of kidney (principal); N28.1 Cyst of kidney, acquired; Z13.9 Encounter for screening, unspecified
CPT/HCPCS: 99214

== ENCOUNTER 2023-11-15 09:00 | Outpatient (REF) | payer OTHER, SELFPAY ==
--- NOTE | ~2023-11-15 | US_ITS ---
EXAMINATION: US RETROPERITONEAL LIMITED (RENAL ONLY) CLINICAL INFORMATION: Calculus of kidney. COMPARISON: Ultrasound kidneys and bladder 05/22/2023. Ultrasound kidneys 01/31/2018. CT abdomen and pelvis 12/06/2015. TECHNIQUE: Real-time imaging of the kidneys. FINDINGS: RIGHT KIDNEY: 10.5 x 4.6 x 4.5 cm (SAG x AP x TRV). The kidney is normal in size, contour, and echogenicity. Renal cortical thickness is normal. No renal calculi or hydronephrosis. A benign minimally complex Bosniak class II, 2.3 cm renal cyst is noted which requires no additional imaging or follow up. No solid renal masses are seen. LEFT KIDNEY: 10.4 x 5.0 x 4.6 cm (SAG x AP x TRV). The kidney is normal in size, contour, and echogenicity. Renal cortical thickness is normal. There is a 7 mm echogenic focus at the lower pole of the left kidney with twinkle artifact consistent with a nonobstructing calculus. No focal parenchymal lesions or hydronephrosis. US/US renal BI IMPRESSION: Nonobstructing 7 mm left lower pole renal calculus. Electronically signed by: Guillermo Marquis MD 11/20/2023 12:44 AM EDT
== END 2023-11-15 09:01 | disposition home or self-care (01) ==
LOC: HO.US 09:00
PROVIDERS: PCP Internal Medicine; Visit Provider Nurse Practitioner Family
DX: N20.0 Calculus of kidney (principal); N28.1 Cyst of kidney, acquired
CPT/HCPCS: 76775

== ENCOUNTER 2024-01-06 11:24 | Outpatient (AMB) | payer OTHER, SELFPAY ==
--- NOTE | 2024-01-06 11:30 | A.OFFVIS_ITS ---
Intake Visit Reasons: 6m/US(set) Intake Note: Patient presents today for follow up on: nephrolithiasis and ultrasound results imagin11/15/23 Urology Medication: Vitamin B6 Blood Thinner: none Cv Tech Required: Yes Cv Tech Name: Herb [id number] Accompanied by: Self / Same As Patient Allergies No Known Allergies Allergy (Verified 01/06/24 12:00) Medication List - Last Reconciled 01/06/24 by HAIR Diallo lisinopril 20 mg PO DAILY pyridoxine (vitamin B6) 100 mg PO DAILY 90 days HPI Comments Details: Floresita is a pleasant 53 year old Syriac speaking patient of Dr. Beatriz Gonzalez. She has a past medical history of nephrolithiasis, vitiligo, GERD, hypertension, and renal cysts. She presents to the office today for a follow up of her nephrolithiasis. Recent renal imaging results reviewed with the patient today. Renal ultrasound 11/18 notes bilateral kidneys with no hydronephrosis or renal masses. Right kidney with Bosniak class 2 cyst measuring a proximally 2.3 cm which requires no additional follow-up imaging per radiology report. No right-sided renal calculi. Left kidney with 7 mm echogenic focus in the upper pole of the left kidney consistent with nonobstructing calculus. In discussion with the patient today she does report noting intermittent episodes of bilateral flank pain since her last office visit here a proximally 6 months ago however describes these episodes as infrequent. We discussed stone burden and further intervention to include ESWL versus surveillance monitoring. Risks and benefits of these interventions were discussed. In office urinalysis results reviewed with the patient today pH 5.5. We discussed importance of hydration relation to nephrolithiasis as well as overall health and well-being. She does report compliance with vitamin B6 as prescribed. She otherwise denies any bothersome urinary issues or concerns. She denies urinary urgency, urinary frequency, incontinence, nocturia, hematuria, dysuria, foul smelling urine, changes to urinary stream, flank pain, fever, and or chills. She is happy with her current voiding parameters. She otherwise offers no issues or concerns at this time. [facility] Medical History Retention, urine Nephrolithiasis Vitiligo Mild acid reflux HTN (hypertension) Renal cyst, acquired Surgical History Hx of colonoscopy History of lithotripsy History of hernia repair History of breast surgery History of tubal ligation Family History Mother Diabetes HTN (hypertension) Father HTN (hypertension) Brother Colon cancer Social History Household Members: Significant Other Alcohol intake: never Patient Tobacco Use Status: Never used Tobacco Review of Systems Eyes Reports no additional complaints ENT Reports no additional complaints Card Reports no additional complaints Resp Reports no additional complaints GI Reports as per HPI Reports as per HPI Musc Reports no additional complaints Skin/Breast Reports as per HPI Neuro Reports no additional complaints Psych Reports no additional complaints Endo Reports no additional complaints Physical Exam Const General: cooperative, healthy appearing, comfortable, no acute distress, well developed, alert and awake Orientation/consciousness: patient oriented x3 Limitations: no limitations HEENT Head: Yes normal to inspection, Yes normocephalic and Yes atraumatic Ears: hearing grossly normal bilaterally Eyes General: appearance normal, both eyes and all related structures Neck Neck: Yes normal visual inspection and Yes trachea midline Chest Chest palpation & inspection: normal inspection of the chest Resp Effort & Inspection: normal respiratory effort and able to speak in complete sentences Cardio Rate: regular rate GI Inspection: Yes normal to inspection General: Yes no CVA tenderness Back/Spine/Pelvis Back: no CVA tenderness Skin General skin exam: no rashes or lesions noted Neuro General: patient oriented x3 Extrem General: Yes normal to inspection Psych Appearance: grossly normal and well kempt Mental Status: mental status grossly normal Speech and movement: Normal speech and movement present and Clear speech present Affect: normal affect Attitude: cooperative Thought process: Normal thought process present Thought content: Normal thought content present Insight: Fair insight present (Psych) Judgement: Fair judgement present (Psych) Results AMB Urinalysis, Automated UA Leukoctes 70 Juan/uL Last Edit by Simon Jaynass on 01/06/24 12:09 UA Nitrite Negative Last Edit by MGB Bioph[employer]ass on 01/06/24 12:09 UA Urobilinogen 0.2 mg/dL Last Edit by Klick2Contactsilvio AnyPerklaura on 01/06/24 12:09 UA Protein 15 mg/dL Last Edit by Klick2Contactsilvio AnyPerklaura on 01/06/24 12:09 UA pH 6.0 Last Edit by MGB Biopharmalaura on 01/06/24 12:09 UA Blood 10 Skinny/uL Last Edit by MGB Biopharmalaura on 01/06/24 12:09 UA Specific [place] 1.010 Last Edit by MGB Biopharmalaura on 01/06/24 12:09 UA Ketone Negative Last Edit by MGB Biopharmalaura on 01/06/24 12:09 UA Bilirubin 0 mg/dL Last Edit by MGB Biopharmalaura on 01/06/24 12:09 UA Glucose 0 mg/dL Last Edit by MGB Biopharmalaura on 01/06/24 12:09 Results Reviewed Results Reviewed: Laboratory Last Values Urine pH (Auto) 6.0 01/06/24 12:01 Specific [place] (Auto) 1.010 01/06/24 12:01 Urine Protein (Auto) 15 mg/dL 01/06/24 12:01 Glucose (UA)(Auto) 0 mg/dL 01/06/24 12:01 Urine Ketones (Auto) Negative 01/06/24 12:01 Urine Blood (Auto) 10 Skinny/uL 01/06/24 12:01 Urine Nitrite (Auto) Negative 01/06/24 12:01 Urine Bilirubin (Auto) 0 mg/dL 01/06/24 12:01 Urine Urobilinogen (Auto) 0.2 mg/dL 01/06/24 12:01 Leukocyte Esterase (Auto) 70 Juan/uL 01/06/24 12:01 Date of Service: 11/15/23 Procedure(s): US renal BI FINDINGS: RIGHT KIDNEY: 10.5 x 4.6 x 4.5 cm (SAG x AP x TRV). The kidney is normal in size, contour, and echogenicity. Renal cortical thickness is normal. No renal calculi or hydronephrosis. A benign minimally complex Bosniak class II, 2.3 cm renal cyst is noted which requires no additional imaging or follow up. No solid renal masses are seen. LEFT KIDNEY: 10.4 x 5.0 x 4.6 cm (SAG x AP x TRV). The kidney is normal in size, contour, and echogenicity. Renal cortical thickness is normal. There is a 7 mm echogenic focus at the lower pole of the left kidney with twinkle artifact consistent with a nonobstructing calculus. No focal parenchymal lesions or hydronephrosis. IMPRESSION: Nonobstructing 7 mm left lower pole renal calculus. Assessment & Plan Assessment & Plan (1) Nephrolithiasis: Code(s): N20.0 - Calculus of kidney Category: Medical (2) Renal cyst: Code(s): N28.1 - Cyst of kidney, acquired Category: Medical Plan In office urinalysis results reviewed with the patient today; as noted above. Recent renal imaging results reviewed with the patient today; as noted above. We discussed further intervention to include ESWL versus surveillance monitoring; risks and benefits of these interventions were discussed. Continue vitamin B6; refill provided. Discussed, educated, and stressed the importance of adequate hydration relation to nephrolithiasis as well as overall health and well-being. She reports be happy with current voiding parameters. Continue adding 1 oz of lemon juice to water daily. Will obtain renal ultrasound and KUB in 6 months. Follow-up in 6 months with imaging to be completed prior; or sooner with any issues, concerns, and or questions. Orders: Orders US renal BI 6 Months N20.0 - Calculus of kidney XR KUB 6 Months N20.0 - Calculus of kidney AMB Urinalysis Automated Today Z13.9 - Encounter for screening, unspecified Medications: Refilled pyridoxine (vitamin B6) 100 mg PO DAILY 90 tabs 1RF 90 days Patient Instructions: The patient had an opportunity to ask questions regarding the treatment plan. All questions were answered. Physical exam, labs, and imaging were discussed and reviewed in detail. As well as risks, benefits, and discussion of treatment choices. No major barriers to understanding were identified. The patient expressed understanding and agreement with the above treatment plan. The patient was made aware they should contact our office by phone for worsening of their current condition, the appearance of new symptoms, or with any questions or concerns. Compliance is encouraged with any medications and follow up testing that is ordered. It is a privilege to be allowed the opportunity to participate in? your urological care.? Again, if you have any questions or concerns If you have any questions or concerns please do not hesitate to contact me. The office is [phone]. This note is constructed using voice recognition software. While every effort has been made to ensure accuracy aerospace technician errors may have been included. Yours sincerely, HAIR Diallo Coding Level of Care Code Est Pt Level 3 (10065) Diagnoses Nephrolithiasis N20.0 Renal cyst N28.1
== END 2024-01-06 11:50 | disposition home or self-care (01) ==
PROVIDERS: PCP Internal Medicine; Visit Provider Nurse Practitioner Family
DX: N20.0 Calculus of kidney (principal); N28.1 Cyst of kidney, acquired; Z13.9 Encounter for screening, unspecified
CPT/HCPCS: 99213

== ENCOUNTER → 2024-01-06 11:24 | Outpatient (BNVA) | payer OTHER, SELFPAY | PROVIDERS: PCP Internal Medicine; Visit Provider Nurse Practitioner Family | DX: N20.0 Calculus of kidney (principal); N28.1 Cyst of kidney, acquired | CPT/HCPCS: 81003 ==

== ENCOUNTER 2024-04-03 08:17 | Outpatient (REF) | payer OTHER, SELFPAY ==
[2024-04-03 14:50] LABS: Anion Gap 12 (12-20); Blood Urea Nitrogen 16 mg/dL (9-16); Calcium 9.6 mg/dL (8.4-10.2); Carbon Dioxide 26 mmol/L (22-29); Chloride 112 mmol/L (96-108); Estimated Glomerular Filt Rate > 60; Glucose Random 75 mg/dL (60-115); Potassium 3.5 mmol/L (3.3-5.1); Sodium 146 mmol/L (135-145)
== END 2024-04-03 08:18 | disposition home or self-care (01) ==
LOC: HO.CHCLDS 08:17
PROVIDERS: Visit Provider Internal Medicine
DX: I10 Essential (primary) hypertension (principal)
CPT/HCPCS: 36415; 80048

== ENCOUNTER 2024-04-06 07:45 | Outpatient (AMB) ==
--- NOTE | 2024-04-06 07:53 | MHC.OFFVIS ---
Intake Visit Reasons: Kidney Stones Intake Note: Patient presents today for follow up on: nephrolithiasis Last imagin11/15/23 Urology Medication: Vitamin B6 Blood Thinner: none Mixer Foam Rubber Required: Yes Mixer Foam Rubber Services: Mixer Foam Rubber Present Mixer Foam Rubber Name: Roxi YinSanjuana NETTLES Accompanied by: Self / Same As Patient Allergies No Known Allergies Allergy (Verified 04/06/24 08:28) Medication List - Last Reconciled 04/06/24 by HAIR Diallo ibuprofen mg PO 3XD lisinopril 20 mg PO DAILY pyridoxine (vitamin B6) 100 mg PO DAILY 90 days HPI Comments Details: Floresita is a pleasant 53 year old Sinhala speaking patient of Dr. Beatriz Gonzalez. She has a past medical history of nephrolithiasis, vitiligo, GERD, hypertension, and renal cysts. She presents to the office today for a follow up of her nephrolithiasis. In discussion with the patient today she reports having seeked emergency room care multiple times at [facility] for ongoing left-sided flank pain she had been experiencing. She also reports having followed up with her PCP at which time recommendations were made for further assessment evaluation. CT report results were reviewed today. CT of the abdomen and pelvis without contrast that was performed 03/27/24 at [place] notes there is a 6 mm stone in the distal left ureter with associated moderate hydroureteronephrosis. Trace right medullary calcifications. Low-density lesion in the right kidney too small to characterize probably represents a cyst. Punctate stones in the left kidney. She continues to report ongoing left-sided flank pain. In office urinalysis results reviewed with the patient today. We discussed at length further treatment options and risks and benefits of these treatment options. She otherwise denies urinary urgency, urinary frequency, incontinence, nocturia, hematuria, dysuria, foul smelling urine, changes to urinary stream, fever, and or chills. She is happy with her current voiding parameters. She otherwise offers no issues or concerns at this time. [facility] Medical History Retention, urine Nephrolithiasis Vitiligo Mild acid reflux HTN (hypertension) Renal cyst, acquired Surgical History Hx of colonoscopy History of lithotripsy History of hernia repair History of breast surgery History of tubal ligation Family History Mother Diabetes HTN (hypertension) Father HTN (hypertension) Brother Colon cancer Social History Household Members: Significant Other Alcohol intake: never Patient Tobacco Use Status: Never used Tobacco Review of Systems Eyes Reports no additional complaints ENT Reports no additional complaints Card Reports no additional complaints Resp Reports no additional complaints GI Reports as per HPI Reports as per HPI Musc Reports no additional complaints Skin/Breast Reports as per HPI Neuro Reports no additional complaints Psych Reports no additional complaints Endo Reports no additional complaints Physical Exam Const General: cooperative, healthy appearing, comfortable, no acute distress, well developed, alert and awake Orientation/consciousness: patient oriented x3 Limitations: language barrier HEENT Head: Yes normal to inspection, Yes normocephalic and Yes atraumatic Ears: hearing grossly normal bilaterally Eyes General: appearance normal, both eyes and all related structures Neck Neck: Yes normal visual inspection and Yes trachea midline Chest Chest palpation & inspection: normal inspection of the chest Resp Effort & Inspection: normal respiratory effort and able to speak in complete sentences Cardio Rate: regular rate GI Inspection: Yes normal to inspection General: Yes no CVA tenderness Back/Spine/Pelvis Back: no CVA tenderness Skin General skin exam: no rashes or lesions noted Neuro General: patient oriented x3 Extrem General: Yes normal to inspection Psych Appearance: grossly normal and well kempt Mental Status: mental status grossly normal Speech and movement: Normal speech and movement present and Clear speech present Affect: normal affect Attitude: cooperative Thought process: Normal thought process present Thought content: Normal thought content present Insight: Fair insight present (Psych) Judgement: Fair judgement present (Psych) Results AMB Urinalysis, Automated UA Leukoctes 15 Juan/uL Last Edit by Simon Paige on 04/06/24 08:11 UA Nitrite Last Edit by Simon Paige on 04/06/24 08:11 UA Urobilinogen 0.2 mg/dL Last Edit by Simon Paige on 04/06/24 08:11 UA Protein 0 mg/dL Last Edit by Simon Paige on 04/06/24 08:11 UA pH 6.0 Last Edit by Simon Paige on 04/06/24 08:11 UA Blood 80 Skinny/uL Last Edit by Simon Paige on 04/06/24 08:11 UA Specific [place] 1.015 Last Edit by Simon Paige on 04/06/24 08:11 UA Ketone Last Edit by Simon Paige on 04/06/24 08:11 UA Bilirubin 0 mg/dL Last Edit by Simon Paige on 04/06/24 08:11 UA Glucose 0 mg/dL Last Edit by Simon Paige on 04/06/24 08:11 Results Reviewed Results Reviewed: Laboratory Last Values Urine pH (Auto) 6.0 04/06/24 08:09 Specific [place] (Auto) 1.015 04/06/24 08:09 Urine Protein (Auto) 0 mg/dL 04/06/24 08:09 Glucose (UA)(Auto) 0 mg/dL 04/06/24 08:09 Urine Blood (Auto) 80 Skinny/uL 04/06/24 08:09 Urine Bilirubin (Auto) 0 mg/dL 04/06/24 08:09 Urine Urobilinogen (Auto) 0.2 mg/dL 04/06/24 08:09 Leukocyte Esterase (Auto) 15 Juan/uL 04/06/24 08:09 Assessment & Plan Assessment & Plan (1) Nephrolithiasis: Code(s): N20.0 - Calculus of kidney Category: Medical (2) Left flank pain: Code(s): R10.9 - Unspecified abdominal pain Category: Medical (3) Hydronephrosis concurrent with and due to calculi of kidney and ureter: Code(s): N13.2 - Hydronephrosis with renal and ureteral calculous obstruction Category: Medical (4) Renal cyst: Code(s): N28.1 - Cyst of kidney, acquired Category: Medical Plan: Ureteroscopy We discussed the nature of the decision and reasonable alternatives for performing ureteroscopy. Options such as medical therapy were discussed. Interventions include chemical dissolution, ESWL, ureteroscopy with laser lithotripsy and stent placement, PCNL. The relative uncertainties and benefits related to each alternate procedure were adequately discussed. General surgical risks including, but not limited to - pain, bleeding, infection, myocardial infarction, pulmonary embolus, deep vein thrombosis and cerebrovascular accident which may result in further hospitalization were discussed.? Full disclosure of the procedure as well as all major risks, benefits and complications were discussed including but not limited to damage to the urethra, bladder and kidney infection, damage to the ureter, stent migration or malposition, scarring to the renal pelvis, remnant stone fragments, subsequent stone passage with need for secondary procedures. The overall secondary procedure rate is approximately 10-15%.? The overall clearance rate is approximately 90-95%. Success of the procedure in the short-term does not necessarily guarantee that long-term success will be maintained. Suitable follow up will need to be maintained. The patient showed understanding of discussion and wishes to proceed with - cystoscopy, retrograde, ureteroscopy, possible lithotripsy/stone basketing and stent on the left side Plan In office urinalysis results reviewed with the patient today; as noted above. Recent CT report reviewed with the patient today; as noted above. We discussed at length further treatment options of obstructing nephrolithiasis and risks and benefits of these treatment options. All questions were answered. Prescription provided for p.r.n. pain medication. Discussed educated and stressed the importance of adequate hydration relation to nephrolithiasis as well as overall health and well-being. Will schedule for cystoscopy, retrograde, ureteroscopy, possible lithotripsy/stone basketing and stent on the left side. Follow-up per doctor's orders; or sooner with any issues, concerns, and or questions. Orders: Orders AMB Urinalysis Automated Today Z13.9 - Encounter for screening, unspecified Medications: New tamsulosin 0.4 mg PO BEDTIME 30 caps 1RF 30 days N40.1 - Benign prostatic hyperplasia with lower urinary tract symptoms, R35.1 - Nocturia tramadol 50 mg PO Q8H PRN 15 tabs 0RF pain 5 days N43.3 - Hydrocele, unspecified Patient Instructions: The patient had an opportunity to ask questions regarding the treatment plan. All questions were answered. Physical exam, labs, and imaging were discussed and reviewed in detail. As well as risks, benefits, and discussion of treatment choices. No major barriers to understanding were identified. The patient expressed understanding and agreement with the above treatment plan. The patient was made aware they should contact our office by phone for worsening of their current condition, the appearance of new symptoms, or with any questions or concerns. Compliance is encouraged with any medications and follow up testing that is ordered. It is a privilege to be allowed the opportunity to participate in? your urological care.? Again, if you have any questions or concerns If you have any questions or concerns please do not hesitate to contact me. The office is [phone]. This note is constructed using voice recognition software. While every effort has been made to ensure accuracy command and control systems integrator errors may have been included. Yours sincerely, HARI Diallo Coding Level of Care Code Est Pt Level 4 (69180) Diagnoses Nephrolithiasis N20.0 Left flank pain R10.9 Hydronephrosis concurrent with and due to calculi of kidney and ureter N13.2 Renal cyst N28.1
== END 2024-04-06 08:17 | disposition home or self-care (01) ==
DX: N20.0 Calculus of kidney (principal); R10.9 Unspecified abdominal pain; N13.2 Hydronephrosis with renal and ureteral calculous obstruction; N28.1 Cyst of kidney, acquired; Z13.9 Encounter for screening, unspecified
CPT/HCPCS: 99214

== ENCOUNTER → 2024-04-06 07:45 | Outpatient (BNVA) | payer OTHER, SELFPAY | PROVIDERS: PCP Internal Medicine; Visit Provider Nurse Practitioner Family | DX: N13.2 Hydronephrosis with renal and ureteral calculous obstruction (principal); R10.9 Unspecified abdominal pain; N28.1 Cyst of kidney, acquired; R35.1 Nocturia | CPT/HCPCS: 81003 ==

== ENCOUNTER 2024-04-07 12:53 | Day surgery (SDC) | payer OTHER, SELFPAY ==
[2024-04-07] VITALS (11 sets, daily range): BP systolic 128–160; BP diastolic 68–96; PULSE 50–75; RESP 14–20; TEMP 36.1–36.6; O2SAT 94–100; BMI 33.3
--- NOTE | ~2024-04-07 | FL_ITS ---
EXAMINATION: FL GUIDANCE ONLY HISTORY: CYSTOSCOPY; LASER, STENT PLACEMENT - LEFT COMPARISON: Correlation is made with a renal ultrasound dated 11/15/2023. TECHNIQUE: Fluoroscopy time: 14.1 seconds. Cumulative Dose: 4.71 mGy. Images: 2. FINDINGS: Images demonstrate placement of a left nephroureteral stent. FL/FL guidance in OR IMPRESSION: Fluoroscopy during procedure. Please see procedure report for additional information. Electronically signed by: Colton Elizondo MD 04/08/2024 07:00 AM BRENNA
[2024-04-07] MEDS: Lactated Ringers 1,000 ML 80 ML IVCONT (13:38)
--- OUTSIDE RECORDS SUMMARY | 2024-04-07 14:03 | XMS_ITS | Encounter Summary ---
Author Organization [employer] Address [address] [facility] [address] [place] [address] Care Team Providers Care Charity Fundraiser Name Role Phone Cornell Fragoso MD Primary Care Prov ider Reason for Visit * Reason Onset Date Comments Chart Prep 03/12/2024 Encounter Details Date Type Department Care Team ([facility] [address] Contact Info) Description 03/12/2024 Telephone [facility] MED & PEDS [address] [place] [address] Cornell Fragoso MD [address] [place] [address] Chart Prep Social History Tobacco Use Types Packs/Day Years Used Date Smoking Tobacco: Never Assessed Depression Answer Date Recorded Patient Health Questionnaire-9 Score 0 06/20/2022 Housing Stability Answer Date Recorded What is your housing situation today? I have shelli perez 12/25/[address] you li ve. Do you have problems with any of the following? None of the above 12/25/2022 Food Insecurity Answer Date Recorded Within the past 12 months, y ou worried that your food would run out before you got money to buy more: Never True 12/25/2022 Within the past 12 months,th e food you bought just didn't last and you didn't have enough money to get more: Never True Transportation Answer Date Recorded In the past 12 months, has l ack of transportation kept you from medical appts, meetings, work or from getting things needed for daily living? No 12/25/2022 Utilities Answer Date Recorded In the past 12 months, has t he electric, gas, oil or water company threatened to shut off services in your home? No 12/25/2022 Depression Answer Date Recorded Patient Health Questionnaire-2 Score 0 06/20/2022 Comments Unknown Sex and Gender Information Value Date Recorded Sex Assigned at Female 12/25/2021 10:29 AM EDT Legal Sex Female 10:29 AM EDT Gender Identity Female 12/25/2021 10:29 AM EDT Sexual Orientation Straight 12/25/2021 10 :29 AM EDT documented as of this encounter Miscellaneous Notes * Telephone Encounter - Ana Keita MA - 03/12/2024 10:04 AM EST Chart Prep Labs: not applicable Images: done Vaccines due: yes Referrals: n/a Screenings: pap smear , STI screening Overdue care gaps: Sbirt, SDOH, PHQ-9, Oral Health, disability screening documented in this encounter Plan of Treatment Upcoming Encounters Date Type Department Care Team (Late st Contact Info) Description 05/01/2024 8:45 AM EST Telemedicine [facility] MED & PEDS [address] [place] [address] Cornell Fragoso MD [address] [place] [address] documented as of this encounter Visit Diagnoses Not on filedocumented in this encounter Additional Health Concerns Assessment Noted Time PHQ-9 Depression Total Score: 0 06/21/19 23 10:32 AM EDT documented as of this encounter Care Teams Charity Fundraiser Relationship Specialty Start Date End Date Cornell Fragoso MD [address] [place] [address] PCP - General Internal Medicine 12/30/20 documented as of this encounter
--- OUTSIDE RECORDS SUMMARY | 2024-04-07 14:03 | XMS_ITS | Encounter Summary ---
Author Organization [facility] Address [address] [place] [id number] Care Team Providers Care Management Analyst Name Role Phone Cornell Fragoso MD Primary Care Prov ider Encounter Details Date Type Department Care Team ([facility] Contact Info) Description 02/21/2022 Orders Only [facility] MEDICINE [address] [place] [address] Cornell Fragoso MD [address] [place] [address] Social History Tobacco Use Types Packs/Day Years Used Date Smoking Tobacco: Never Assessed Comments Unknown Sex and Gender Information Value Date Recorded Sex Assigned at Female 12/25/2021 10:29 AM EDT Legal Sex Female 10:29 AM EDT Gender Identity Female 12/25/2021 10:29 AM EDT Sexual Orientation Straight 12/25/2021 10 :29 AM EDT documented as of this encounter Plan of Treatment Upcoming Encounters Date Type Department Care Team (Late Contact Info) Description 05/01/2024 8:45 AM EST Telemedicine [facility] MED & PEDS [address] [place] [address] Cornlel Fragoso MD [address] [place] [address] documented as of this encounter Visit Diagnoses Not on filedocumented in this encounter Care Teams Management Analyst Relationship Specialty Start Date End Date Cornell Fragoso MD [address] [place] [id number] PCP - General Internal Medicine 12/30/20 documented as of this encounter
--- OUTSIDE RECORDS SUMMARY | 2024-04-07 14:03 | XMS_ITS | Encounter Summary ---
Author Organization [employer] Address [address] [facility] [address] [place] [address] Care Team Providers Care Wildlife Enforcement Major Name Role Phone Cornell Fragoso MD Primary Care Prov ider Reason for Visit * Reason Onset Date Comments Nurse Triage 03/27/2024 Encounter Details Date Type Department Care Team ([facility] st Contact Info) Description 03/27/2024 Telephone [facility] [address] [place] [address] Cornell Fragoso MD [address] [place] [address] Nurse Triage Social History Tobacco Use Types Packs/Day Years Used Date Smoking Tobacco: Never Assessed Depression Answer Date Recorded Patient Health Questionnaire-9 Score 0 06/20/2022 Housing Stability Answer Date Recorded What is your housing situation today? I have shellicheng perez 12/25/[address] you [...] t he electric, gas, oil or water [employer] threatened to shut off services in your [...] encounter Miscellaneous Notes * Telephone Encounter - Kirstie Orozco RN - 03/30/2024 9:37 AM EST Noted. Pt is scheduled for tomorrow. * Telephone Encounter - Nayeli Moya RN - 03/27/2024 9:26 AM EST Sent to team for [facility] ER status check PRN. * Telephone Encounter - Nayeli Moya RN - 03/27/2024 9:21 AM EST Call returned to Floresita Montes to triage below. No player manager needed as this story writer speaks Khmer. Reports having epigastric abdominal pain x 1 week. Per pt worse today. Today onset of vomiting, has yellow green bile. No blood. Denies any diarrhea. Pt having cough congestion and ST 1 week ago. Denies any fever. Pt has not checked BP as kit is out of service. Pt advised of disposition agrees to seek [facility] ER now for evaluation. Pt advised to keep appt next week. Call on Saturday for update PRN. Protocol Used: Abdominal Pain - Upper (Adult) Protocol-Based Disposition: Go to ED Now Positive Triage Questions: * Severe abdominal pain (e.g., excruciating) * Pain lasting > 10 minutes and over 50 years old * All higher-acuity triage questions were negative Care Advice Discussed: * Reassurance and Education - Stomach Pain * Antacid Medicine * Drink Clear Fluids * Reasons To Call Back - You become worse * Telephone Encounter - Fadi Alcantar - 03/27/2024 8:46 AM EST Symptom: Abdominal Pain - Female - Not Outcome: Talk to a nurse or provider within 15 minutes Reason: Severe pain now The caller accepted this outcome. documented in this encounter Plan of Treatment Upcoming Encounters Date Type Department Care Team (Late st Contact Info) Description 05/01/2024 8:45 AM EST Telemedicine [facility] MED & PEDS [address] [place] [address] Cornell Fragoos MD [address] [place] [address] documented as of this encounter Visit Diagnoses Not on filedocumented in this encounter Additional Health Concerns Assessment Noted Time PHQ-9 Depression Total Score: 0 06/21/19 23 10:32 AM EDT documented as of this encounter Care Teams Wildlife Enforcement Major Relationship Specialty Start Date End Date Cornell Fragoso MD [address] [place] [address] PCP - General Internal Medicine 12/30/20 documented as of this encounter
--- OUTSIDE RECORDS SUMMARY | 2024-04-07 14:03 | XMS_ITS | Encounter Summary ---
Author Organization [employer] Address [address] [facility] [address] [place] [address] Care Team Providers Care Women'S Studies Professor Name Role Phone Cornell Fragoso MD Primary Care Prov ider Encounter Details Date Type Department Care Team (Latest Contact Info) Description 03/31/2024 Travel Social History Tobacco Use Types Packs/Day Years [...] Info) Description 05/01/2024 8:45 AM EST Telemedicine [facility] MED & PEDS [address] [place] [address] Cornell Fragoso MD [address] [place] [address] documented as of this encounter Visit Diagnoses Not on filedocumented in this encounter Additional Health Concerns Assessment Noted Time PHQ-9 Depression Total Score: 0 06/21/19 23 10:32 AM EDT documented as of this encounter Care Teams Women'S Studies Professor Relationship Specialty Start Date End Date Cornell Fragoso MD [address] [place] [address] PCP - General Internal Medicine 12/30/20 documented as of this encounter
--- OUTSIDE RECORDS SUMMARY | 2024-04-07 14:03 | XMS_ITS | Encounter Summary ---
Author Organization [employer] Address [address] [facility] [address] [place] [address] Care Team Providers Care Meat Cutting Block Repairer Name Role Phone Cornell Fragoso MD Primary Care Prov ider Reason for Visit * Reason Comments Follow-up Hospital f/u Encounter Details Date Type Department Care Team ([facility] st Contact Info) Description 03/31/2024 2:15 PM EST Office Visit [facility] [address] [place] [address] Cornell Fragoso MD [address] [place] [address] Primary hypertension (Primary Dx); Dietary counseling; Exercise counseling; Nephrolithiasis Social History Tobacco Use Types Packs/Day Years [...] AM EDT documented as of this encounter Last Filed Vital Signs Vital Sign Reading Time Taken Comments Blood Pressure 149/85 03/31/2024 2:12 PM EST Pulse 60 03/31/2024 2:12 PM EST Temperature 36.2 ??C (97.2 ??F) 03/31/2024 2:12 PM ES T Respiratory Rate 20 03/31/2024 2:12 PM EST Oxygen Saturation 98% 03/31/2024 2:12 PM EST Inhaled Oxygen Concentration - - Weight 76.5 kg (168 lb 9.6 oz) 03/31/2024 2:12 P M EST Height 151.4 cm (4' 11.6 ) 03/31/2024 2:12 PM ES T Body Mass Index 33.37 03/31/2024 2:12 PM EST documented in this encounter Progress Notes * Cornell Gonzalez MD - 03/31/2024 2:15 PM EST Subjective Patient ID: Floresita Montes is a 53 y.o. female who presents for Follow-up ([facility] f/u). Hypertension This is a chronic problem. Pertinent negatives include no chest pain, headaches, palpitations, peripheral edema or shortness of breath. Review of Systems Respiratory: Negative for shortness of breath. Cardiovascular: Negative for chest pain and palpitations. Neurological: Negative for headaches. Objective Physical Exam Constitutional: Appearance: Normal appearance. Cardiovascular: Rate and Rhythm: Normal rate and regular rhythm. Heart sounds: No murmur heard. Pulmonary: Effort: Pulmonary effort is normal. No respiratory distress. Breath sounds: No wheezing. Abdominal: General: Abdomen is flat. There is no distension. Tenderness: There is no abdominal tenderness. There is no right CVA tenderness, left CVA tendernessor guarding. Neurological: General: No focal deficit present. Mental Status: She is alert and oriented to person, place, and time. Psychiatric: Mood and Affect: Mood normal. Behavior: Behavior normal. Assessment/Plan Problem List Items Addressed This Visit Primary hypertension - Primary Above target, he is on lisinopril 20mg, told to keep bp log for next appointment Relevant Orders Basic Metabolic Panel Nephrolithiasis Told to remain well hydrated, will renew flomax, er precautions reviewed, ct scan showed a 7mm stone Other Visit Diagnoses Dietary counseling Exercise counseling documented in this encounter Miscellaneous Notes * Assessment & Plan Note - Cornell Gonzalez MD - 03/31/2024 10:04 PM ESTAssociated Problem(s): Nephrolithiasis Told to remain well hydrated, will renew flomax, er precautions reviewed, ct scan showed a 7mm stone * Assessment & Plan Note - Cornell Gonzalez MD - 03/31/2024 10:04 PM ESTAssociated Problem(s): Primary hypertension Above target, he is on lisinopril 20mg, told to keep bp log for next appointment documented in this encounter Plan of Treatment Upcoming Encounters Date Type Department Care Team (Late st Contact Info) Description 05/01/2024 8:45 AM EST Telemedicine [facility] MED & PEDS [address] [place] [address] Cornell Fragoso MD [address] [place] [address] documented as of this encounter Procedures Procedure Name Priority Date/Time Associated Diagnosis Comments BASIC METABOLIC PANEL Routine 04/03/2024 8:20 AM EST Primary hypertension documented in this encounter Results * (ABNORMAL) Basic Metabolic Panel (04/03/2024 8:20 AM EST) Sodium 146(H) 135 - 145 mmol/L [facility] Potassium 3.5 3.3 - 5.1 mmol/L [facility] Chloride 112(H) 96 - 108 mmol/L [facility] Carbon Dioxide 26 22 - 29 mmol/L [facility] Anion Gap 12 12 - 20 [facility] Urea Nitrogen (BUN) 16 9 - 16 mg/dL [facility] Creatinine, Serum 0.63 0.5 - 1.4 mg/dL [facility] Estimated Glomerular Filt Rate >60 [facility] Comment:Chronic Kidney Disea se: Estimated GFR < 60 mL/min/1.17o3Asszxs Kidney Disease: Estimated GFR < 15 mL/min/1.73m2 Glucose 75 60 - 115 mg/dL [facility] Calcium 9.6 8.4 - 10.2 mg/dL [facility] Blood Venous blood specimen / Unknown 04/03/2024 8:20 AM EST 04/03/2024 2:13 PM EST us Cornell Gonzalez MD LAB BLOOD ORDERABL ES Final Result [facility] [address] [place] [address] [phone] documented in this encounter Visit Diagnoses Diagnosis Primary hypertension- Primary Unspecified essential hypertension Dietary counseling Dietary surveillance and counseling Exercise counseling Nephrolithiasis Calculus of kidney documented in this encounter Additional Health Concerns Assessment Noted Time PHQ-9 Depression Total Score: 0 06/21/19 23 10:32 AM EDT documented as of this encounter Care Teams Meat Cutting Block Repairer Relationship Specialty Start Date End Date Cornell Fragoso MD [address] [place] [id number] PCP - General Internal Medicine 12/30/20 documented as of this encounter
--- OUTSIDE RECORDS SUMMARY | 2024-04-07 14:03 | XMS_ITS | Encounter Summary ---
Author Organization [employer] Address [address] [facility] [place] [address] Care Team Providers Care Applications Administrator Name Role Phone Cornell Fragoso MD Primary Care Prov ider Reason for Visit * Reason Comments Pre-visit Planning SDOH unable to reach LVM Encounter Details Date Type Department Care Team ([facility] st Contact Info) Description 03/24/2024 Patient Outreach [facility] P[facility] [address] [place] [address] Cornell Fragoso MD [address] [place] [address] Pre-visit Planning (SDOH unable to reach LVM ) Social History Tobacco Use Types Packs/Day Years [...] AM EDT documented as of this encounter Progress Notes * Jolene Mohamud - 03/24/2024 4:20 PM EST CORBY Gonzales placed outbound call to patient to complete pre-visit planning. No answer at this time. Patient name and were not confirmed. CC left voicemail requesting return call. Direct contactinformation provided. documented in this encounter Plan of Treatment Upcoming Encounters Date Type Department Care Team (Late st Contact Info) Description 05/01/2024 8:45 AM EST Telemedicine [facility] [address] [place] [address] Cornell Fragoso MD [address] [place] [address] documented as of this encounter Visit Diagnoses Not on filedocumented in this encounter Additional Health Concerns Assessment Noted Time PHQ-9 Depression Total Score: 0 06/21/19 23 10:32 AM EDT documented as of this encounter Care Teams Applications Administrator Relationship Specialty Start Date End Date Cornell Fragoso MD [address] [place] [address] PCP - General Internal Medicine 12/30/20 documented as of this encounter
--- OUTSIDE RECORDS SUMMARY | 2024-04-07 14:03 | XMS_ITS | Clinical Summary ---
Author Organization [facility] Address [address] [place] [address] Phone Care Team Providers Care Hand Tube Winder Name Role Phone Cornell Fragoso Primary Care Provide r Allergies No known active allergies Medications ondansetron ODT (ZOFRAN-ODT) 4 mg disintegrating tablet Let 1 tablet dissolve under the tongue three times daily as needed for nausea or vomiting. 10 tablet 5 025 tamsulosin (FLOMAX) 0.4 mg 24 hr capsule Take 1 capsule (0.4 mg total) by mouth 1 (one) time each day for 7 days. Capsules should be taken 30 minutes following the same meal each day. 7 capsule 5 025 traMADoL (ULTRAM) 50 mg tablet Take 1 tablet (50 mg total) by mouth every 6 (six) hours if needed for severe pain for up to 3 days. Max Daily Amount: 200 mg 12 tablet 5 025 Encounters Date Type Department Care Team Description 03/27/2024 12:13 PM EST - 03/27/2024 6:45 PM EST Emergency [facility] Emergency [address] [place] [address] Morgan Rizzo MD Ureteral calculus, left (Primary Dx) Discharge Disposition: Home or Self Care from Last 3 Months Surgical History Surgery Date Site/Laterality Comments BREAST LUMPECTOMY PROCEDURE: HISTORICAL BREAST LUMPECTOMY INCISIONAL HERNIA REPAIR PROCEDURE: CA IMPLANT MESH OPN HERNIA RPR/DEBRIDEMENT CLOSURE TUBAL LIGATION PROCEDURE: HISTORICAL TUBAL LIGATION Medical History Medical History Date Comments HTN (hypertension) DX:HTN (hyper tension) Fibroid uterus 12/02/2020 DX:Fibroid uteru s; COMMENT: US transvaginal 04/07/2020: Fibroid uterus, normal appearing left ovary, right ovary not seen. Menorrhagia with regular cycle 12/02/2020 D X:Menorrhagia with regular cycle Breast fibroadenoma, right 12/27/2020 DX:Br east fibroadenoma, right; COMMENT: Needle bx 03/27/2016 GERD (gastroesophageal reflu x disease) 12/27/2020 DX:GERD (gastroesophageal re flux disease) Chronic back pain 12/27/2020 DX:Chronic katy k pain Bursitis of right shoulder 12/27/2020 DX:Bu rsitis of right shoulder Vitiligo 12/27/2020 DX:Vitiligo; COM MENT: Face, chronic/intermittent. Family History Medical History Relation Name Comments Cirrhosis Father Other: heart problems Father Hypertension Mother Relation Name Status Comments Father Mother Alive Sister x3 Alive Social History Tobacco Use Types Packs/Day Years Used Date Smoking Tobacco: Never Smokeless Tobacco: Never Alcohol Use Standard Drinks/Week Comments Never 0 (1 standard drink = 0.6 oz pur e alcohol) Comments Unknown Sex and Gender Information Value Date Recorded Sex Assigned at Not on file Legal Sex Female 5:02 AM EST Gender Identity Not on file Sexual Orientation Not on file Obstetrics History Last Filed Vital Signs Vital Sign Reading Time Taken Comments Blood Pressure 114/68 03/27/2024 4:15 PM EST Pulse 64 03/27/2024 4:15 PM EST Temperature 36.6 ??C (97.9 ??F) 03/27/2024 4:15 PM ES T Respiratory Rate 16 03/27/2024 4:15 PM EST Oxygen Saturation 100% 03/27/2024 4:15 PM EST Inhaled Oxygen Concentration - - Weight 72.6 kg (160 lb) 03/27/2024 10:17 AM EST Height 149.9 cm (4' 11 ) 03/27/2024 10:17 AM EST Body Mass Index 32.32 03/27/2024 10:17 AM EST Plan of Treatment Health Maintenance Due Date Last Done Comments Breast Cancer Screening 1970 Hepatitis B Vaccines (1 of 3 - 19+ 3-dose series) 08/01/1990 Pneumococcal Vaccine: 50+ Years (1 of 2 - PCV) 08/01/1990 Pneumococcal Vaccine: Pediatrics (0 to 5 Years) and At-Risk Patients (6 to 64 Years) (1 of 2 - PCV) 08/01/1990 Cervical Cancer Screening: Pap Smear 08/01/1992 DTaP,Tdap,and Td Vaccines (2 - Td or Tdap) 02/01/2016 01/04/2016 COVID-19 Vaccine (3 - Pfizer risk series) 08/17/2020 07/20/2020, 06/29/2020 Colorectal Cancer Screening: Colonoscopy 01/28/2022 HIV Screening 01/28/2022 Hepatitis C Screening 01/28/2022 Social Influencers of Health Screening 01/28/2022 Depression Screening 06/21/2023 06/20/2022 Hypertension/CHF/CAD Annual BMP Blood Test 03/27/2025 03/27/2024 Cholesterol Screening (Lipid Panel) 02/15/2027 02/15/2022 Zoster Vaccines Completed 03/02/2022, 12/29/2021 Influenza Vaccine Completed 12/26/2023, , 03/22/2020, Additional history exists HIB Vaccines Aged Out No longer eligi ble based on patient's age to complete this topic HPV Vaccines Aged Out No longer eligi ble based on patient's age to complete this topic Hepatitis A Vaccines Aged Out No long er eligible based on patient's age to complete this topic IPV Vaccines Aged Out No longer eligi ble based on patient's age to complete this topic MMR Vaccines Aged Out No longer eligi ble based on patient's age to complete this topic Meningococcal ACWY Vaccine Aged Out N o longer eligible based on patient's age to complete this topic Meningococcal B Vacine Aged Out No lo nger eligible based on patient's age to complete this topic RSV Immunization Patients Under 20 months Aged Out No longer eligible based on patient's age to complete this topic Varicella Vaccines Aged Out No longer eligible based on patient's age to complete this topic Procedures Procedure Name Priority Date/Time Associated Diagnosis Comments CT ABDOMEN PELVIS WO CONTRAST STAT 03/27/2024 3:37 PM EST MIRANDA URINE CULTURE TUBE STAT 03/27/2024 1:22 PM EST URINALYSIS WITH REFLEX MICROSCOPIC AND CULTURE STAT 03/27/2024 1:22 PM EST URINALYSIS WITH REFLEX MICROSCOPIC AND CULTURE STAT 03/27/2024 1:22 PM EST CULTURE URINE STAT 03/27/2024 1:22 PM EST CBC WITH AUTO DIFFERENTIAL STAT 03/27/2024 10:22 AM EST LIPASE STAT 03/27/2024 10:22 AM EST COMPREHENSIVE METABOLIC PANEL STAT 03/27/2024 10:22 AM EST CBC AND DIFFERENTIAL STAT 03/27/2024 10:22 AM EST from Last 3 Months Results * CT Abdomen Pelvis wo Contrast (03/27/2024 3:37 PM EST) Anatomical Region Laterality Modality Body Computed Tomogra phy 03/27/2024 3:41 PM EST Impressions 03/27/2024 3:51 PM EST Moderate left hydroureteronephrosis with a distal 6 mm obstructing ureteral calculus. -------- FINAL REPORT -------- Dictated By: Devorah Carver Dictated Date: 03/27/2024 15:41 ET Assigned Physician: Devorah Carver Reviewed and Electronically Signed By: Devorah Carver Signed Date: 03/27/2024 15:51 ET Workstation ID: [id number] Transcribed By: Self Edit Transcribed Date: 03/27/2024 15:41 ET Narrative 03/27/2024 3:51 PM EST PROCEDURE: CT Abdomen and Pelvis without contrast INDICATION: L flank pain TECHNIQUE: CT of the abdomen and pelvis without contrast. Multiplanar reformats. The examination was performed utilizing dose reduction techniques. DLP: 1540 COMPARISON: ??12/06/2015. FINDINGS: ?? LOWER THORAX: Volume loss at the lung bases. ??No consolidation or effusion. HEPATOBILIARY: No focal liver lesions. No cholelithiasis or biliary duct dilatation. SPLEEN: No splenomegaly. PANCREAS: No focal mass or ductal dilatation. ADRENALS: No nodules. KIDNEYS/URETERS: There is a 6 mm stone in the distal left ureter with associated moderate hydroureteronephrosis. ??Trace right medullary calcifications. ??Low- density lesion in the right kidney too small to characterize but probably represent cysts. ??Punctate stone in the left kidney. PELVIC ORGANS/BLADDER: Unremarkable. PERITONEUM / RETROPERITONEUM: No ascites or free air. No retroperitoneal lymphadenopathy. VESSELS: No aneurysm. GI TRACT: No bowel distention or wall thickening. Normal appendix. BONES AND SOFT TISSUES: No significant degenerative changes seen throughout the bones. ??Stable soft tissue prominence at the umbilicus.. Procedure Note Devorah Carver MD - 03/27/2024 PROCEDURE: CT Abdomen and Pelvis without contrast INDICATION: L flank pain TECHNIQUE: CT of the abdomen and pelvis without contrast. Multiplanarreformats. The examination was performed utilizing dose reductiontechniques. DLP: 1540 COMPARISON: 12/06/2015. FINDINGS: LOWER THORAX: Volume loss at the lung bases. No consolidation oreffusion. HEPATOBILIARY: No focal liver lesions. No cholelithiasis or biliary ductdilatation. SPLEEN: No splenomegaly. PANCREAS: No focal mass or ductal dilatation. ADRENALS: No nodules. KIDNEYS/URETERS: There is a 6 mm stone in the distal left ureter withassociated moderate hydroureteronephrosis. Trace right medullarycalcifications. Low-density lesion in the right kidney too small tocharacterize but probably represent cysts. Punctate stone in the leftkidney. PELVIC ORGANS/BLADDER: Unremarkable. PERITONEUM / RETROPERITONEUM: No ascites or free air. No retroperitoneallymphadenopathy. VESSELS: No aneurysm. GI TRACT: No bowel distention or wall thickening. Normal appendix. BONES AND SOFT TISSUES: No significant degenerative changes seenthroughout the bones. Stable soft tissue prominence at the umbilicus.. IMPRESSION: Moderate left hydroureteronephrosis with a distal 6 mm obstructingureteral calculus. -------- FINAL REPORT -------- Dictated By: Devorah Carver Dictated Date: 03/27/2024 15:41 ET Assigned Physician: Devorah Carver Reviewed and Electronically Signed By: Devorah Carver Signed Date: 03/27/2024 15:51 ET Workstation ID: [id number] Transcribed By: Self Edit Transcribed Date: 03/27/2024 15:41 ET us [place] [facility] IMG CT PROCEDURES Final Resul t * (ABNORMAL) Urinalysis with reflex microscopic and culture (03/27/2024 1:22 PM EST) Specific [place] Urine 1.021 1.003 - 1.030 LAB URINALYSIS - AUTOMATED METHOD 03/27/2024 2:42 PM [facility] pH, Urine 5.5 5.0 - 8.0 pH LAB URINALYSIS - AUTOMATED METHOD 03/27/2024 2:42 PM [facility] Leukocytes, Urine Small(A) Negative LAB URINALYSIS - AUTOMATED METHOD 03/27/2024 2:42 PM [facility] Nitrite, Urine Negative Negative LAB URINALYSIS - AUTOMATED METHOD 03/27/2024 2:42 PM [facility] Protein, Urine Negative <=Trace mg/dL LAB URINALYSIS - AUTOMATED METHOD 03/27/2024 2:42 PM [facility] Glucose, Urine Negative Negative mg/dL LAB URINALYSIS - AUTOMATED METHOD 03/27/2024 2:42 PM [facility] Ketones, Urine 15(A) Negative mg/dL LAB URINALYSIS - AUTOMATED METHOD 03/27/2024 2:42 PM [facility] Urobilinogen, Urine 1.0 0.2 - 1.0 mg/dL LAB URINALYSIS - AUTOMATED METHOD 03/27/2024 2:42 PM [facility] Bilirubin, Urine Negative Negative LAB URINALYSIS - AUTOMATED METHOD 03/27/2024 2:42 PM [facility] Blood, Urine Trace(A) Negative LAB URINALYSIS - AUTOMATED METHOD 03/27/2024 2:42 PM [facility] RBC, Urine 9.6(H) 0 - 4 /HPF LAB URINALYSIS - AUTOMATED METHOD 03/27/2024 2:42 PM [facility] WBC, Urine 13.5(H) 0 - 4 /HPF LAB URINALYSIS - AUTOMATED METHOD 03/27/2024 2:42 PM [facility] Squamous Epithelial, Urine 66(H) 0 - 60 /LPF LAB URINALYSIS - AUTOMATED METHOD 03/27/2024 2:42 PM [facility] Bacteria, Urine Negative Negative /HPF LAB URINALYSIS - AUTOMATED METHOD 03/27/2024 2:42 PM [facility] Hyaline Casts, Urine 0.8 0 - 3 /LPF LAB URINALYSIS - AUTOMATED METHOD 03/27/2024 2:42 PM [facility] Urine Urine specimen obtained by clean catch procedure / Unknown Non-blood Collection / Unknown 03/27/2024 1:22 PM EST 03/27/2024 1:57 PM EST Morgan Rizzo MD LAB URINE ORDERABLES Alicia l Result Performing Organization Address [facility]/ZIP Co de Phone Number [facility] [address] [place] [address], [place] [phone] * Miranda urine culture tube (03/27/2024 1:22 PM EST) Extra Tube Hold for add-ons. 03/27/2024 3:02 PM EST [facility] Comment:Auto resulted. Urine Urine specimen obtained by clean catch procedure / Unknown Non-blood Collection / Unknown 03/27/2024 1:22 PM EST 03/27/2024 1:57 PM EST Morgan Rizzo MD LAB URINE ORDERABLES Alicia l Result [facility] [address] [place] [address], [place] [phone] * Culture urine (03/27/2024 1:22 PM EST) [facility] Culture, Urine No growth 03/28/2024 9:37 AM [facility] Urine Urine specimen obtained by clean catch procedure / Unknown Non-blood Collection / Unknown 03/27/2024 1:22 PM EST 03/27/2024 2:42 PM EST Morgan Rizzo MD LAB MICROBIOLOGY - GENERA L ORDERABLES Final Result [facility] [address] [place] [address], [place] [phone] * (ABNORMAL) CBC auto differential (03/27/2024 10:22 AM EST) [facility] WBC 10.3 4.8 - 10.8 K/mcL LAB HEMETOLOGY METHOD 03/27/2024 10:40 AM [facility] RBC 4.60 3.80 - 4.80 M/mcL LAB HEMETOLOGY METHOD 03/27/2024 10:40 AM [facility] Hemoglobin 13.2 11.5 - 16.0 g/dL LAB HEMETOLOGY METHOD 03/27/2024 10:40 AM [facility] Hematocrit 41.0 35.0 - 47.0 % LAB HEMETOLOGY METHOD 03/27/2024 10:40 AM [facility] MCV 90.1 79.0 - 98.0 FL LAB HEMETOLOGY METHOD 03/27/2024 10:40 AM [facility] MCH 29.0 27.0 - 32.0 pcg LAB HEMETOLOGY METHOD 03/27/2024 10:40 AM [facility] MCHC 32.2 32.0 - 37.0 g/dL LAB HEMETOLOGY METHOD 03/27/2024 10:40 AM [facility] RDW 13.4 11.0 - 15.0 % LAB HEMETOLOGY METHOD 03/27/2024 10:40 AM [facility] Platelets 330 130 - 400 K/mcL LAB HEMETOLOGY METHOD 03/27/2024 10:40 AM [facility] MPV 11.0 7.0 - 11.0 FL LAB HEMETOLOGY METHOD 03/27/2024 10:40 AM [facility] NRBC 0.0 <1.0 % LAB HEMETOLOGY METHOD 03/27/2024 10:40 AM [facility] NRBC Absolute 0.00 <0.10 K/mcL LAB HEMETOLOGY METHOD 03/27/2024 10:40 AM [facility] Neutrophils Relative 82.0 % LAB HEMETOLOGY METHOD 03/27/2024 10:40 AM [facility] Lymphocytes Relative 12.1 % LAB HEMETOLOGY METHOD 03/27/2024 10:40 AM [facility] Monocytes Relative 5.0 % LAB HEMETOLOGY METHOD 03/27/2024 10:40 AM [facility] Eosinophils Relative 0.3 % LAB HEMETOLOGY METHOD 03/27/2024 10:40 AM [facility] Basophils Relative 0.3 % LAB HEMETOLOGY METHOD 03/27/2024 10:40 AM [facility] Immature Granulocytes Relative 0.3 % LAB HEMETOLOGY METHOD 03/27/2024 10:40 AM [facility] Neutrophils Absolute 8.41(H) 1.50 - 7.00 K/mcL LAB HEMETOLOGY METHOD 03/27/2024 10:40 AM [facility] Lymphocytes Absolute 1.24 1.00 - 5.00 K/mcL LAB HEMETOLOGY METHOD 03/27/2024 10:40 AM EST [facility] Monocytes Absolute 0.51 0.20 - 1.00 K/mcL LAB HEMETOLOGY METHOD 03/27/2024 10:40 AM EST [facility]) [facility] Eosinophils Absolute 0.03 0.00 - 0.50 K/[facility] LAB HEMETOLOGY METHOD 03/27/2024 10:40 AM EST [facility]) [facility] Basophils Absolute 0.03 0.00 - 0.20 K/[facility] LAB HEMETOLOGY METHOD 03/27/2024 10:40 AM EST [facility] ([facility]) [facility] Immature Granulocytes Absolute 0.03 0.00 - 0.03 K/[facility] LAB HEMETOLOGY METHOD 03/27/2024 10:40 AM EST [facility] Blood Venous blood specimen / Unknown Venipuncture / Unknown 03/27/2024 10:22 AM EST 03/27/2024 10:29 AM EST Morgan Rizzo MD LAB BLOOD ORDERABLES Alicia l Result [facility] [address] [place] [address], [place] [phone] * Lipase (03/27/2024 10:22 AM EST) Lipase 24 13 - 75 unit/L LAB CHEMISTRY METHOD 03/27/2024 11:00 AM EST [facility] Blood Venous blood specimen / Unknown Venipuncture / Unknown 03/27/2024 10:22 AM EST 03/27/2024 10:29 AM EST Morgan Rizzo MD LAB BLOOD ORDERABLES Alicia l Result [facility] [address] [place] [address], [place] [phone] * (ABNORMAL) Comprehensive metabolic panel (03/27/2024 10:22 AM EST) Sodium 140 133 - 145 mmol/L LAB CHEMISTRY METHOD 03/27/2024 11:05 AM [facility] Potassium 4.1 3.5 - 5.5 mmol/L LAB CHEMISTRY METHOD 03/27/2024 11:05 AM [facility] Chloride 109 96 - 110 mmol/L LAB CHEMISTRY METHOD 03/27/2024 11:05 AM [facility] CO2 25 21 - 32 mmol/L LAB CHEMISTRY METHOD 03/27/2024 11:05 AM [facility] Anion Gap 6 3 - 11 LAB CHEMISTRY METHOD 03/27/2024 11:05 AM [facility] Glucose 160(H) 70 - 100 mg/dL LAB CHEMISTRY METHOD 03/27/2024 11:05 AM [facility] BUN 20 5 - 25 mg/dL LAB CHEMISTRY METHOD 03/27/2024 11:05 AM [facility] Creatinine 0.62 0.50 - 1.10 mg/dL LAB CHEMISTRY METHOD 03/27/2024 11:05 AM [facility] eGFR 107 >=60 mL/min/1. 73m2 LAB CHEMISTRY METHOD 03/27/2024 11:05 AM [facility] Comment:Calculation based on the??Chronic Kidney Disease Epidemiology Collaboration (CKD-EPI) equation refit??without adjustment for race. BUN/Creatinine Ratio 32.3 LAB CHEMISTRY METHOD 03/27/2024 11:05 AM [facility] Calcium 9.3 8.5 - 10.5 mg/dL LAB CHEMISTRY METHOD 03/27/2024 11:05 AM [facility] AST (SGOT) 20 10 - 42 unit/L LAB CHEMISTRY METHOD 03/27/2024 11:05 AM [facility] ALT (SGPT) 26 10 - 60 unit/L LAB CHEMISTRY METHOD 03/27/2024 11:05 AM [facility] Alkaline Phosphatase 97 42 - 121 unit/L LAB CHEMISTRY METHOD 03/27/2024 11:05 AM EST [facility] Total Protein 8.0 6.0 - 8.0 g/dL LAB CHEMISTRY METHOD 03/27/2024 11:05 AM EST [facility] Albumin 3.6 3.2 - 5.0 g/dL LAB CHEMISTRY METHOD 03/27/2024 11:05 AM [facility] Total Bilirubin 0.4 0.0 - 1.4 mg/dL LAB CHEMISTRY METHOD 03/27/2024 11:05 AM EST [facility] Blood Venous blood specimen / Unknown Venipuncture / Unknown 03/27/2024 10:22 AM EST 03/27/2024 10:29 AM EST Morgan Rizzo MD LAB BLOOD ORDERABLES Alicia l Result [facility] [address] [place] [address], from Last 3 Months Insurance [facility] [place] [id number] Care Teams Hand Tube Winder Relationship Specialty Start Date End Date Cornell Fragoso [address] [place], [place] PCP - General Internal Medicine 01/18/21
--- OUTSIDE RECORDS SUMMARY | 2024-04-07 14:03 | XMS_ITS | Clinical Summary ---
Author Organization [employer] Address [address] [facility] 7[address] [place] [address] Care Team Providers Care Product Management Specialist Name Role Phone Cornell Fragoso MD Primary Care Prov ider Allergies No known active allergies Medications lisinopril 20 MG tabletIndication s:Primary hypertension TAKE 1 TABLET BY MOUTH EVERY DAY 30 tablet 11 05/10/19 24 Active tamsulosin (Flomax) 0.4 MG 24 hr capsule Take 1 capsule (0.4 mg) by mouth Once per day for 14 days. 14 capsule 03/31/19 25 025 Active Blood Pressure kit 1 kit Once per day. 1 kit 03/31/19 25 Active ibuprofen 600 MG tablet Take 1 tablet (600 mg) by mouth every 8 (eight) hours if needed for mild pain. 90 tablet 03/31/19 25 025 Active ibuprofen 800 MG tablet TAKE 1 TABLET BY MOUTH THREE TIMES DAILY WITH FOOD NEEDED FOR PAIN 90 tablet 12/27/19 23 025 Discontinued(Re order (will not trigger notification to Pharmacy)) Active Problems Problem Noted Date Diagnosed Date Nephrolithiasis 03/31/2024 Assessment & Plan (03/31/2024 10:04 PM EST): Told to remain well hydrated, will renew flomax, er precautions reviewed, ct scan showed a 7mm stone Primary hypertension 03/29/2022 Assessment & Plan (03/31/2024 10:04 PM EST): Above target, he is on lisinopril 20mg, told to keep bp log for next appointment Assessment & Plan (06/20/2022 11:07 AM EDT): Controlled, she is not taking hydrochlorothiazide last time was more than 1 week ago, she is following low sodium diet, told to hold hydrochlorothiazide, continue with lisinopril 20mg, will follow up in 3 months Assessment & Plan (03/29/2022 10:51 AM EST): Controlled, she had 4 days were her results were above 140/90, she was asymptomatic but more than 75% are below 140/90, reinforced low sodium diet and exercise as tolerated, labs reviewed, will follow up in 3 months Encounters Date Type Department Care Team Description 03/31/2024 2:15 PM EST Office Visit [facility] [address] [place] [address] Cornell Fragoso MD Primary hypertension (Primary Dx); Dietary counseling; Exercise counseling; Nephrolithiasis 03/31/2024 Travel 03/27/2024 Telephone [facility] [address] [place] [address] Cornell Fragoso MD Nurse Triage 03/24/2024 Patient Outreach [facility] [address] [place] [address] Cornell Fragoso MD Pre-visit Planning (SDOH unable to reach LVM ) 03/12/2024 Telephone [facility] [address] [place] [address] Cornell Fragoso MD Chart Prep 03/05/2024 Patient Outreach [facility] [address] [place] [address] Cornell Fragoso MD Pre-visit Planning (SDOH unable to reach LVM) 02/27/2024 Travel 01/30/2024 Refill [facility] [address] [place] [address] Cornell Fragoso MD Primary hypertension from Last 3 Months Immunizations Name Administration Dates Next Due Influenza Injectable Quadriv alant Preservative Free IIV4 MDCK 12/29/2021 Influenza injectable quadriv alent IIV4 with preservative 12/22/2018,11/11/2017 Influenza injectable quadrivalent preservative f ree 03/22/2020,12/18/2016 Influenza, seasonal, injectable, preservative fr ee 12/26/2023,12/25/2014 Tdap 01/04/2016 Zoster, Recombinant 03/02/2022,12/29/2021 Social History Tobacco Use Types Packs/Day Years Used Date Smoking Tobacco: Never Assessed Depression Answer Date Recorded Patient Health Questionnaire-9 Score 0 06/20/2022 Housing Stability Answer Date Recorded What is your housing situation today? I have shelli chris 12/25/[address] you li [...] Orientation Straight 12/25/2021 10 :29 AM EDT Last Filed Vital Signs Vital Sign Reading [...] Mass Index 33.37 03/31/2024 2:12 PM EST Plan of Treatment Upcoming Encounters Date Type Department Care Team ([facility] st Contact Info) Description 05/01/2024 8:45 AM EST Telemedicine [facility] [address] [place] [address] Cornell Fragoso MD [address] [place] [address] Health Maintenance Due Date Last Done Comments CT Colonography 1971 FIT DNA/Cologuard 1971 FIT 1971 FOBT 1971 HIV Screening 1971 Sigmoidoscopy 1971 Alcohol/Substance Use Screening 1983 Tobacco Screening 1983 Family Planning (PISQ) 08/01/1986 Hepatitis C Screening 08/01/1989 Hepatitis B Vaccines (1 of 3 - 19+ 3-dose series) 08/01/1990 Pap Smear 08/01/1992 Pneumococcal Vaccine: 50+ Years (1 of 1 - PCV) 08/01/2021 Colonoscopy 08/14/2022 08/14/2021 Colorectal Cancer Screening 08/14/2022 Depression Screening 06/21/2023 06/20/2022, 06/21/19 23 SDOH Screening 06/21/2023 06/20/2022 COVID-19 Vaccine ( - 2023- season) 2023 07/20/2020, 06/29/2020 Cervical Cancer Screening 02/25/2024 HPV/Cotest 02/25/2024 02/24/2019 Mammogram 05/30/2025 05/31/2023, 10/0 07/2022, 05/25/2022, Additional history exists DTaP/Tdap/Td Vaccines (2 - Td or Tdap) 01/03/2026 01/04/2016 Lipid Panel 02/15/2027 02/15/2022, 12/30/2020 RSV Patients and Patients Aged 60 years or older (1 - 1-dose 75+ series) 08/01/2046 Zoster Vaccines Completed 03/02/2022, 12/29/2021 Influenza Vaccine [...] patient's age to complete this topic Meningococcal Vaccine Aged Out No antonio naveen eligible based on patient's age to complete this topic RSV under 20 months Aged Out No longe r eligible based on patient's age to complete this topic Rotavirus Vaccines Aged Out No longer eligible based on patient's age to complete this topic Procedures Procedure Name Priority Date/Time Associated Diagnosis Comments BASIC METABOLIC PANEL Routine 04/03/2024 8:20 AM EST Primary hypertension BI MAMMOGRAM SCREENING TOMOSYNTHESIS BILATERAL Routine 05/31/2023 8:20 AM EDT LIPID PANEL, STANDARD Routine 02/15/2022 8:41 AM EST HM COLONOSCOPY Routine 08/14/2021 11:04 AM EDT ZZZ HISTORICAL HPV MRNA E6/E7 Routine 02/24/2019 8:47 AM EST from Last 3 Months or Most Recently Relevant to Health Maintenance Results * (ABNORMAL) Basic Metabolic Panel (04/03/2024 8:20 AM EST) Sodium 146(H) 135 - 145 mmol/L [facility] Potassium 3.5 3.3 - 5.1 mmol/L [facility] Chloride 112(H) 96 - 108 mmol/L [facility] Carbon Dioxide 26 22 - 29 mmol/L [facility] Anion Gap 12 12 - 20 [facility] Urea Nitrogen (BUN) 16 9 - 16 mg/dL [facility] Creatinine, Serum 0.63 0.5 - 1.4 mg/dL [facility] Estimated Glomerular Filt Rate >60 [facility] Comment:Chronic Kidney Disea se: Estimated GFR < 60 mL/min/1.17l6Vyempc Kidney Disease: Estimated GFR < 15 mL/min/1.73m2 Glucose 75 60 - 115 mg/dL [facility] Calcium 9.6 8.4 - 10.2 mg/dL [facility] Blood Venous blood specimen / Unknown 04/03/2024 8:20 AM EST 04/03/2024 2:13 PM EST Cornell Gonzalez MD LAB BLOOD ORDERABL ES Final Result [facility] [address] [place] [address] [phone] * BI Mammogram Screening Tomosynthesis Bilateral (05/31/2023 8:20 AM EDT) Anatomical Region Laterality Modality Breast Bilateral Mammography 05/31/2023 8:20 AM EDT Narrative 06/08/2023 4:42 PM EDT ? [facility] ? [address] ?[place] [address] ? Mammography Report ? Signed ? Patient: Floresita Landaverde ?MR#: MM ?? [id number] ? : 1970 ?Acct:[id number] ? Age/Sex: 52 / F ?ADM Date: 04/05/24 ? Loc: HO.MAMMO ? Attending Dr: Cornell Gonzalez MD ? Ordering Physician: Cornell Fragoso MD ?Res ?? ults: 2Benign Findings ? Date of Service: 05/31/23 ?Follow Up: 1 Year From Orig ?? inal Mammogram ? Procedure(s): MM tomosynthesis screening BI ?? Accession Number(s): [id number] ? cc: Cornell Fragoso MD ? EXAMINATION: ?? MM SCREENING DIGITAL BREAST TOMOSYNTHESIS, BILATERAL ? CLINICAL INFORMATION: ? Screening. Asymptomatic. ? COMPARISON: ?? Mammography: This study is compared with prior exams dating back to ?? 2019. ? TECHNIQUE: ?? Digital breast tomosynthesis is performed in both the craniocaudal and ?? mediolateral oblique views along with computer-aided detection (CAD). ?? Synthesized 2D images are generated from the tomosynthesis. ? FINDINGS: ?? There are scattered areas of fibroglandular density (ACR BI-RADS breast ?? composition Category b). ? There are no significant masses, abnormal calcifications, or other ?? abnormalities. ? There is a tissue marker present in the upper outer quadrant of the ?? right breast from prior benign percutaneous biopsy. ? MM/MM tomosynthesis screening BI ?? IMPRESSION: ?? No mammographic evidence of malignancy. ? ASSESSMENT: ? BI-RADS BI-RADS 2 - Benign Findings ? RECOMMENDATION: ?? Routine annual mammography screening. ? 1 year F/U ? This examination should not preclude the clinical evaluation of a ?? suspicious palpable abnormality. ? This patient's information was entered into a reminder system with a ?? target due date for their next mammogram. ? Dictated By: ?Laura Sotomayor MD ? Signed By: ?<Electronically signed by Laura Sotomayor MD in OV> ? 06/08/23 1638 ? DD/ 0820 ? TD/TT: ? Academic Interventionist: ? Procedure Note Donotuseinterpreter, Image - 06/08/2023 [facility] [address] [place] [address] Mammography Report Signed Patient: Hortensai Landaverde#: MM [id number] : 1970Acct:[id number] Age/Sex: 52 / FADM Date: 05/31/23 Loc: HO.MAMMO Attending Dr: Cornell Gonzalez MD Ordering Physician: Cornell Fragoso ults: 2Benign Findings Date of Service: 05/31/23Follow Up: 1 Year From Orig inal Mammogram Procedure(s): MM tomosynthesis screening BI Accession Number(s): [id number] cc: Cornell Fragoso MD EXAMINATION: MM SCREENING DIGITAL BREAST TOMOSYNTHESIS, BILATERAL CLINICAL INFORMATION: Screening. Asymptomatic. COMPARISON: Mammography: This study is compared with prior exams dating back to 2019. TECHNIQUE: Digital breast tomosynthesis is performed in both the craniocaudal and mediolateral oblique views along with computer-aided detection (CAD). Synthesized 2D images are generated from the tomosynthesis. FINDINGS: There are scattered areas of fibroglandular density (ACR BI-RADS breast composition Category b). There are no significant masses, abnormal calcifications, or other abnormalities. There is a tissue marker present in the upper outer quadrant of the right breast from prior benign percutaneous biopsy. MM/MM tomosynthesis screening BI IMPRESSION: No mammographic evidence of malignancy. ASSESSMENT: BI-RADS BI-RADS 2 - Benign Findings RECOMMENDATION: Routine annual mammography screening. 1 year F/U This examination should not preclude the clinical evaluation of a suspicious palpable abnormality. This patient's information was entered into a reminder system with a target due date for their next mammogram. Dictated By: Laura Sotomayor MD Signed By: <Electronically signed by Laura Sotomayor MD in OV> 06/08/23 1638 DD/ 0820 TD/TT: Academic Interventionist: us Cornell Gonzalez MD IMG BI PROCEDURES Edited Result - Final * (ABNORMAL) Lipid Panel, Standard (02/15/2022 8:41 AM EST) Cholesterol, Total 192 <200 mg/dL [facility] HDL Cholesterol 53 > OR = 50 mg/dL [facility] Triglycerides 81 <150 mg/dL [facility] LDL Cholesterol 121(H) mg/dL (calc) [facility] Comment: Reference range: <100 Desirable range <100 mg/dL for primary prevention; ?? <70 mg/dL for patients with CHD or diabetic patients with > or = 2 CHD risk factors. LDL-C is now calculated using the Niranjan calculation, which is a validated novel method providing better accuracy than the Friedewald equation in the estimation of LDL-C. Buster BOBO et al. VASYL. 2013;310(19): 2294-7955 (http://education.[employer]/faq/EXI486) Chol/HDLC Ratio 3.6 <5.0 (calc) [facility] Non-HDL Cholesterol 139(H) <130 mg/dL (calc) [facility] Comment: For patients with diabetes plus 1 major ASCVD risk factor, treating to a non-HDL-C goal of <100 mg/dL (LDL-C of <70 mg/dL) is considered a therapeutic option. 02/15/2022 8:41 AM EST 02/15/2022 8:42 AM EST Narrative [facility] - 02/15/2022 10:38 PM EST FASTING:YES AN UPDATE OR CORRECTION HAS BEEN MADE TO NAME FASTING: YES us Cornell Gonzalez MD LAB BLOOD ORDERABL ES Final Result [facility] [address] [facility] [place] [address] [facility] [address] [facility], ([address]) [place] [address] * Hm Colonoscopy (08/14/2021 11:04 AM EDT) us Historical Provider MD HEALTH MAINTENANCE Final Result * HPV mRNA E6/E7 (02/24/2019 8:47 AM EST) HPV mRNA E6/E7 Not Detected NOT DETECTED [facility] Comment: This test was performed using the APTIMA(R) HPV Assay ([employer] This assay detects E6/E7 viral messenger RNA (mRNA) from 14 high-risk HPV types (16,18,31,33,35,39,45,51, 52,56,58,59,66,68). For additional information please refer to: http://education.[employer]/faq/CQT616m0 (This link is being provided for informational/ educational purposes only.) The analytical performance characteristics of this assay have been determined by [facility] [place], [place]. The modifications have not been cleared or approved by the FDA. This assay has been validated pursuant to the CLIA regulations and is used for clinical purposes. Test Performed by [facility], [facility] [place], [address] [place] [address] Christopher Hidalgo M.D., Ph.D., Director of Laboratories , CLIA [id number] Please note: ??Effective 11/07/2015, HPV testing will be performed using [employer]'s APTIMA test which targets mRNA. Detecting mRNA instead of DNA, as in older methods, offers significant improvements in specificity. 02/24/2019 8:47 AM EST us Kristin Schaefer CNM HISTORICAL/NON ORDERABLE LABS Final Result [facility] [address] from Last 3 Months or Most Recently Relevant to Health Maintenance Insurance [facility] [employer] Care Teams Product Management Specialist Relationship Specialty Start Date End Date Cornell Fragoso MD [address] [place] [address] [place] [address] PCP - General Internal Medicine 12/30/20
--- OUTSIDE RECORDS SUMMARY | 2024-04-07 14:04 | XMS_ITS | Encounter Summary ---
Author Organization [employer] Address [address] [facility] [address] [facility] [address] [place] [address] Care Team Providers Care Robotics Testing Technician Name Role Phone Cornell Fragoso MD Primary Care Prov ider Encounter Details Date Type Department Care Team (Late st Contact Info) Description 06/11/2023 Orders Only [facility] [address] [place] [address] ProviderKrista MD Social History Tobacco Use Types Packs/Day Years [...] Info) Description 05/01/2024 8:45 AM EST Telemedicine [facility] [address] [place] [address] Cornell Fragoso MD [address] [place] [address] documented as of this encounter Procedures Procedure Name Priority Date/Time Associated Diagnosis Comments HM COLONOSCOPY Routine 08/14/2021 11:04 AM EDT documented in this encounter Results * Hm Colonoscopy (08/14/2021 11:04 AM EDT) Historical Provider HEALTH MAINTENANCE Final Result documented in this encounter Visit Diagnoses Not on filedocumented in this encounter Additional Health Concerns Assessment Noted Time PHQ-9 Depression Total Score: 0 06/21/19 23 10:32 AM EDT documented as of this encounter Care Teams Robotics Testing Technician Relationship Specialty Start Date End Date Cornell Fragoso MD [address] [place] [address] PCP - General Internal Medicine 12/30/20 documented as of this encounter
--- OUTSIDE RECORDS SUMMARY | 2024-04-07 14:04 | XMS_ITS | Encounter Summary ---
Author Organization [email or web address] Address [address] [facility] [address] [place] [address] Care Team Providers Care Food Safety Scientist Name Role Phone Cornell Fragoso MD Primary Care Prov ider Reason for Visit * Reason Comments Med Refill Encounter Details Date Type Department Care Team ([facility] st Contact Info) Description 01/30/[address] [facility] [address] [place], [place] [phone] Cornell Fragoso MD [address] [place] [address] Primary hypertension Social History Tobacco Use Types Packs/Day Years Used Date Smoking Tobacco: Never Assessed Depression Answer Date Recorded Patient Health Questionnaire-9 Score 0 06/20/2022 Housing Stability Answer Date Recorded What is your housing situation today? I have shelli perze 12/25/[address] you li [...] [facility] [address] [place] [address] Cornell Fragoso MD [address] [place] [address] documented as of this encounter Visit Diagnoses Diagnosis Primary hypertension Unspecified essential hypertension documented in this encounter Additional Health Concerns Assessment Noted Time PHQ-9 Depression Total Score: 0 06/21/19 23 10:32 AM EDT documented as of this encounter Care Teams Food Safety Scientist Relationship Specialty Start Date End Date Cornell Fragoso MD [address] [place] [address] PCP - General Internal Medicine 12/30/20 documented as of this encounter
--- OUTSIDE RECORDS SUMMARY | 2024-04-07 14:04 | XMS_ITS | Encounter Summary ---
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 Called PCP who said to come to ED. Encounter Details Date Type Department Care Team (Late st Contact Info) Description 03/27/2024 12:13 PM EST - 03/27/2024 6:45 PM EST Emergency [facility] Emergency [address] [place] [id number] Morgan Rizzo MD [address] [place] [address] Ureteral calculus, left (Primary Dx) Discharge Disposition: Home or Self Care Social History Tobacco Use Types Packs/Day Years Used Date Smoking Tobacco: Never Smokeless Tobacco: Never Alcohol Use Standard Drinks/Week Comments Never 0 (1 standard drink = 0.6 oz pur e alcohol) Comments Unknown Sex and Gender Information Value Date Recorded Sex Assigned at Not on file Legal Sex Female 5:02 AM EST Gender Identity Not on file Sexual Orientation Not on file documented as of this encounter Last Filed [...] Mass Index 32.32 03/27/2024 10:17 AM EST documented in this encounter Discharge Instructions * Discharge Instructions* GAIL Yanez - 03/27/2024 4:53 PM EST You have a stone in the left ureter almost to the bladder. It is very important that you rest and drink a lot of fluids. Take Flomax once a day for 7 days. Take Zofran as needed for nausea/vomiting. Take ibuprofen as needed for pain and Ultram for severe pain. Follow-up with your urologist. * Attachments The following attachments cannot be sent through Care Everywhere. * Kidney Stone (Azeri) documented in this encounter Medications at Time of Discharge ondansetron ODT (ZOFRAN-ODT) 4 mg disintegrating tablet Let 1 tablet dissolve under the tongue three times daily as needed for nausea or vomiting. 10 tablet 03/27/2024 5 tamsulosin (FLOMAX) 0.4 mg 24 hr capsule Take 1 capsule (0.4 mg total) by mouth 1 (one) time each day for 7 days. Capsules should be taken 30 minutes following the same meal each day. 7 capsule 03/27/2024 5 traMADoL (ULTRAM) 50 mg tablet Take 1 tablet (50 mg total) by mouth every 6 (six) hours if needed for severe pain for up to 3 days. Max Daily Amount: 200 mg 12 tablet 03/27/2024 5 documented as of this encounter Ordered Prescriptions Prescription Sig Dispense Quantity Refills Last Filled Start Date End Date traMADoL (ULTRAM) 50 mg tablet Take 1 tablet (50 mg total) by mouth every 6 (six) hours if needed for severe pain for up to 3 days. Max Daily Amount: 200 mg 12 tablet 03/27/2024 5 tamsulosin (FLOMAX) 0.4 mg 24 hr capsule Take 1 capsule (0.4 mg total) by mouth 1 (one) time each day for 7 days. Capsules should be taken 30 minutes following the same meal each day. 7 capsule 03/27/2024 5 ondansetron ODT (ZOFRAN-ODT) 4 mg disintegrating tablet Let 1 tablet dissolve under the tongue three times daily as needed for nausea or vomiting. 10 tablet 03/27/2024 5 documented in this encounter Discharge Disposition Disposition Code Departure Means Destination Comment s Home or Self Care documented in this encounter Progress Notes * GAIL Yanez - 03/27/2024 4:51 PM EST Floresita Montes Patient's care was signed out to me at 3:15 PM pending CAT scan. The CAT scan shows moderate left hydroureteronephrosis with a distal 6 mm obstructing ureteral calculus. Patient feels much better after IV fluids and Toradol. Urinalysis shows no evidence of infection. She has a history of stones anddoes have a urologist. She will be discharged with Flomax Ultram and Zofran. Cosigned by Lux Strong DO at 03/27/2024 5:48 PM EST * Morgan Rizzo MD - 03/27/2024 9:59 AM EST Emergency Medicine Note Patient Name: Floresita Montes Initial Evaluation: 03/27/2024 : 1970 Patient's PCP: [facility] Emergency Physician: Morgan Rizzo MD History of Present Illness Chief Complaint: Chief Complaint Patient presents with Flank Pain 2 weeks flank pain with associated vomiting. Called PCP who said to come to ED. HPI: ROS: I have performed a ROS with the pertinent positives and negatives documented in the history ofpresent illness. Previous History Past Medical History: Diagnosis Date Breast fibroadenoma, right 12/27/2020 DX:Breast fibroadenoma, right; COMMENT: Needle bx 03/27/2016 Bursitis of right shoulder 12/27/2020 DX:Bursitis of right shoulder Chronic back pain 12/27/2020 DX:Chronic back pain Fibroid uterus 12/02/2020 DX:Fibroid uterus; COMMENT: US transvaginal 04/07/2020: Fibroid uterus, normal appearing left ovary,right ovary not seen. GERD (gastroesophageal reflux disease) 12/27/2020 DX:GERD (gastroesophageal reflux disease) HTN (hypertension) DX:HTN (hypertension) Menorrhagia with regular cycle 12/02/2020 DX:Menorrhagia with regular cycle Vitiligo 12/27/2020 DX:Vitiligo; COMMENT: Face, chronic/intermittent. Past Surgical History: Procedure Laterality Date BREAST LUMPECTOMY PROCEDURE: HISTORICAL BREAST LUMPECTOMY INCISIONAL HERNIA REPAIR PROCEDURE: CA IMPLANT MESH OPN HERNIA RPR/DEBRIDEMENT CLOSURE TUBAL LIGATION PROCEDURE: HISTORICAL TUBAL LIGATION Social History Tobacco Use Smoking status: Never Smokeless tobacco: Never Substance Use Topics Alcohol use: Never Drug use: Never Family History Problem Relation Name Age of Onset Hypertension Mother Other (Other: heart problems) Father Cirrhosis Father has No Known Allergies. No current facility-administered medications on file prior to encounter. No current outpatient medications on file prior to encounter. Physical Exam ED Triage Vitals [03/27/24 1017] Temp Heart Rate Resp BP 37 ??C (98.6 ??F) 82 16 138/82 SpO2 Temp Source Heart Rate Source Patient Position -- Oral -- Sitting BP Location FiO2 (%) -- -- General: Well-appearing, well nourished, in no acute distress HEENT: PERRL, EOMI, external ears and nose appear unremarkable, airway is patent Neck: Supple, full range of motion Chest: Clear to auscultation; no evidence of respiratory distress Circulatory: RRR, extremities well perfused Abdomen: Non-distended, Non-Tender Extremities: Normal ROM, No edema Skin: Warm and dry Neuro: Alert and oriented, no focal deficits Results Labs Reviewed COMPREHENSIVE METABOLIC PANEL - Abnormal Result Value Sodium 140 Potassium 4.1 Chloride 109 CO2 25 Anion Gap 6 Glucose 160 (*) BUN 20 Creatinine 0.62 eGFR 107 BUN/Creatinine Ratio 32.3 Calcium 9.3 AST (SGOT) 20 ALT (SGPT) 26 Alkaline Phosphatase 97 Total Protein 8.0 Albumin 3.6 Total Bilirubin 0.4 CBC WITH AUTO DIFFERENTIAL - Abnormal WBC 10.3 RBC 4.60 Hemoglobin 13.2 Hematocrit 41.0 MCV 90.1 MCH 29.0 MCHC 32.2 RDW 13.4 Platelets 330 MPV 11.0 NRBC 0.0 NRBC Absolute 0.00 Neutrophils Relative 82.0 Lymphocytes Relative 12.1 Monocytes Relative 5.0 Eosinophils Relative 0.3 Basophils Relative 0.3 Immature Granulocytes Relative 0.3 Neutrophils Absolute 8.41 (*) Lymphocytes Absolute 1.24 Monocytes Absolute 0.51 Eosinophils Absolute 0.03 Basophils Absolute 0.03 Immature Granulocytes Absolute 0.03 URINALYSIS WITH REFLEX MICROSCOPIC AND CULTURE - Abnormal Specific [place] Urine 1.021 pH, Urine 5.5 Leukocytes, Urine Small (*) Nitrite, Urine Negative Protein, Urine Negative Glucose, Urine Negative Ketones, Urine 15 (*) Urobilinogen, Urine 1.0 Bilirubin, Urine Negative Blood, Urine Trace (*) RBC, Urine 9.6 (*) WBC, Urine 13.5 (*) Squamous Epithelial, Urine 66 (*) Bacteria, Urine Negative Hyaline Casts, Urine 0.8 LIPASE - Normal Lipase 24 CULTURE URINE Culture, Urine No growth CBC AND DIFFERENTIAL Narrative: The following orders were created for panel order CBC and differential. Procedure Abnormality Status --------- ------ CBC auto differential[[id number]] Abnormal Final result Please view results for these tests on the individual orders. URINALYSIS WITH REFLEX MICROSCOPIC AND CULTURE Narrative: The following orders were created for panel order Urinalysis with reflex microscopic and culture. Procedure Abnormality Status --------- ------ Urinalysis with reflex ...[[id number]] Abnormal Final result Miranda urine culture tube[[id number]] Final result Please view results for these tests on the individual orders. Abnormal Labs Reviewed COMPREHENSIVE METABOLIC PANEL - Abnormal; Notable for the following components: Result Value Glucose 160 (*) All other components within normal limits CBC WITH AUTO DIFFERENTIAL - Abnormal; Notable for the following components: Neutrophils Absolute 8.41 (*) All other components within normal limits URINALYSIS WITH REFLEX MICROSCOPIC AND CULTURE - Abnormal; Notable for the following components: Leukocytes, Urine Small (*) Ketones, Urine 15 (*) Blood, Urine Trace (*) RBC, Urine 9.6 (*) WBC, Urine 13.5 (*) Squamous Epithelial, Urine 66 (*) All other components within normal limits CT Abdomen Pelvis wo Contrast Final Result Moderate left hydroureteronephrosis with a distal 6 mm obstructing ureteral calculus. -------- FINAL REPORT -------- Dictated By: Devorah Carver Dictated Date: 03/27/2024 15:41 ET Assigned Physician: Devorah Carver Reviewed and Electronically Signed By: Devorah Carver Signed Date: 03/27/2024 15:51 ET Workstation ID: [id number] Transcribed By: Self Edit Transcribed Date: 03/27/2024 15:41 ET I have discussed the incidental/abnormal imaging and/or lab abnormalities with the patient and haveinstructed them the need for further evaluation and workup with their primary care doctor. I have provided the patient with a paper copy of the abnormality. The laboratory results, imaging results and other diagnostic exam results were reviewed in the EMR. EKG Interpretation Critical Care Time None ? Medical Decision Making Medications sodium chloride 0.9 % bolus 1,000 mL (0 mL intravenous Stopped 03/27/24 1545) ketorolac (TORADOL) injection 30 mg (30 mg intravenous Given 03/27/24 1411) ondansetron (PF) (ZOFRAN) injection 4 mg (4 mg intravenous Given 03/27/24 1412) ED Course as of 04/01/24 0811 SatMar 27, [address] pending. UA and labs reviewed and reassuring. Care signed out to GAIL Yanez at change of shift. [JH] ED Course User Index [JH] GAIL Webb Clinical Impressions as of 04/01/24 0811 Ureteral calculus, left Procedures Procedures Diagnosis 1. Ureteral calculus, left Disposition Discharge ED Prescriptions Medication Sig Dispense Start Date End Date Auth. Provider ondansetron ODT (ZOFRAN-ODT) 4 mg disintegrating tablet Let 1 tablet dissolve under the tongue three times daily as needed for nausea or vomiting. 10 tablet 03/27/2024 04/03/2024 GAIL Yanez tamsulosin (FLOMAX) 0.4 mg 24 hr capsule Take 1 capsule (0.4 mg total) by mouth 1 (one) time each day for 7 days. Capsules should be taken 30 minutes following the same meal each day. 7 capsule 03/27/2024 04/03/2024 GAIL Yanez traMADoL (ULTRAM) 50 mg tablet () Take 1 tablet (50 mg total) by mouth every 6 (six) hours if needed for severe pain for up to 3 days. Max Daily Amount: 200 mg 12 tablet 03/27/2024 03/30/2024 GAIL Yanez Physician Attestation This is a split/shared visit with Morgan Rizzo MD. I personally performed the medical decision making (MDM) for the care of this patient on 04/01/24 as documented below case discussed with JENNIFER, review workup, agree with further imaging, symptomatic control, imaging toevaluate for any perinephritic issue such as an abscess, stones, she been having some symptoms for the past 2 weeks with systemic symptoms as well. Disposition to be determined. Her care will be signed out to incoming provider team. Morgan Rizzo MD 04/01/24 8:11 AM EST MD Virginia Ware PA 03/27/24 1229 Morgan Rizzo MD 03/27/24 1503 Morgan Rizzo MD 04/01/24 0811 documented in this encounter Plan of Treatment Not on file documented as of this encounter Procedures Procedure Name Priority Date/Time Associated Diagnosis Comments CT ABDOMEN PELVIS WO CONTRAST STAT 03/27/2024 3:37 PM EST URINALYSIS WITH REFLEX MICROSCOPIC AND CULTURE STAT 03/27/2024 1:22 PM EST MIRANDA URINE CULTURE TUBE STAT 03/27/2024 1:22 PM EST URINALYSIS WITH REFLEX MICROSCOPIC AND CULTURE STAT 03/27/2024 1:22 PM EST CULTURE URINE STAT 03/27/2024 1:22 PM EST CBC WITH AUTO DIFFERENTIAL STAT 03/27/2024 10:22 AM EST CBC AND DIFFERENTIAL STAT 03/27/2024 10:22 AM EST LIPASE STAT 03/27/2024 10:22 AM EST COMPREHENSIVE METABOLIC PANEL STAT 03/27/2024 10:22 AM EST documented in this encounter Results * CT Abdomen Pelvis wo Contrast (03/27/2024 3:37 PM EST) Anatomical Region Laterality Modality Body Computed Tomogra phy 03/27/2024 3:4 1 PM EST Impressions 03/27/2024 3:51 PM EST Moderate left hydroureteronephrosis with a distal 6 mm obstructing ureteral calculus. -------- FINAL REPORT -------- Dictated By: Devorah Carver Dictated Date: 03/27/2024 15:41 ET Assigned Physician: Devorha Carver Reviewed and Electronically Signed By: Devorah Carver Signed Date: 03/27/2024 15:51 ET Workstation ID: [id number] Transcribed By: Self Edit Transcribed Date: 03/27/2024 [...] Signed Date: 03/27/2024 15:51 ET Workstation ID: [id number] Transcribed By: Self Edit Transcribed Date: 03/27/2024 15:41 ET [place] [facility] CT PROCEDURES Final Resul t * Culture urine (03/27/2024 1:22 PM EST) Culture, Urine No growth 03/28/2024 9:37 AM EST [facility] Urine Urine specimen obtained by clean catch procedure / Unknown Non-blood Collection / Unknown 03/27/2024 1:22 PM EST 03/27/2024 2:42 PM EST Morgan Rizzo MD LAB MICROBIOLOGY - GENERA L ORDERABLES Final Result Performing Organization Address [facility]/ZIP Co de Phone Number [facility] [address] [place] [address], [place] [phone] * Miranda urine culture tube (03/27/2024 1:22 PM EST) [facility] Extra Tube Hold for add-ons. 03/27/2024 3:02 PM EST [facility] Comment:Auto resulted. Urine Urine specimen obtained by clean catch procedure / Unknown Non-blood Collection / Unknown 03/27/2024 1:22 PM EST 03/27/2024 1:57 PM EST Morgan Rizzo MD LAB URINE ORDERABLES Alicia l Result Performing Organization Address [facility]/ZIP Co de Phone Number [facility] [address] [place] [address], [place] [phone] * (ABNORMAL) Urinalysis with reflex microscopic and culture (03/27/2024 1:22 PM EST) [facility] [place] Urine 1.021 1.003 - 1.030 LAB URINALYSIS - AUTOMATED METHOD 03/27/2024 2:42 PM [facility] pH, Urine 5.5 5.0 - 8.0 pH LAB URINALYSIS - AUTOMATED METHOD 03/27/2024 2:42 PM [facility] Leukocytes, Urine Small(A) Negative LAB URINALYSIS - AUTOMATED METHOD 03/27/2024 2:42 PM [facility] Nitrite, Urine Negative Negative LAB URINALYSIS - AUTOMATED METHOD 03/27/2024 2:42 PM [facility] Protein, Urine Negative <=Trace mg/dL LAB URINALYSIS - AUTOMATED METHOD 03/27/2024 2:42 PM [facility] Glucose, Urine Negative Negative mg/dL LAB URINALYSIS - AUTOMATED METHOD 03/27/2024 2:42 PM [facility] Ketones, Urine 15(A) Negative mg/dL LAB URINALYSIS - AUTOMATED METHOD 03/27/2024 2:42 PM [facility] Urobilinogen, Urine 1.0 0.2 - 1.0 mg/dL LAB URINALYSIS - AUTOMATED METHOD 03/27/2024 2:42 PM [facility] Bilirubin, Urine Negative Negative LAB URINALYSIS - AUTOMATED METHOD 03/27/2024 2:42 PM [facility] Blood, Urine Trace(A) Negative LAB URINALYSIS - AUTOMATED METHOD 03/27/2024 2:42 PM [facility] RBC, Urine 9.6(H) 0 - 4 /HPF LAB URINALYSIS - AUTOMATED METHOD 03/27/2024 2:42 PM [facility] WBC, Urine 13.5(H) 0 - 4 /HPF LAB URINALYSIS - AUTOMATED METHOD 03/27/2024 2:42 PM [facility] Squamous Epithelial, Urine 66(H) 0 - 60 /LPF LAB URINALYSIS - AUTOMATED METHOD 03/27/2024 2:42 PM [facility] Bacteria, Urine Negative Negative /HPF LAB URINALYSIS - AUTOMATED METHOD 03/27/2024 2:42 PM [facility] Hyaline Casts, Urine 0.8 0 - 3 /LPF LAB URINALYSIS - AUTOMATED METHOD 03/27/2024 2:42 PM [facility] Urine Urine specimen obtained by clean catch procedure / Unknown Non-blood Collection / Unknown 03/27/2024 1:22 PM EST 03/27/2024 1:57 PM EST Morgan Rizzo MD LAB URINE ORDERABLES Alicia hector Result [facility] [address] [place] [address], * (ABNORMAL) CBC auto differential (03/27/2024 10:22 AM EST) WBC 10.3 4.8 - 10.8 K/mcL LAB HEMETOLOGY METHOD 03/27/2024 10:40 AM [facility] RBC 4.60 3.80 - 4.80 M/mcL LAB HEMETOLOGY METHOD 03/27/2024 10:40 AM [facility] Hemoglobin 13.2 11.5 - 16.0 g/dL LAB HEMETOLOGY METHOD 03/27/2024 10:40 AM [facility] Hematocrit 41.0 35.0 - 47.0 % LAB HEMETOLOGY METHOD 03/27/2024 10:40 AM [facility] MCV 90.1 79.0 - 98.0 FL LAB HEMETOLOGY METHOD 03/27/2024 10:40 AM [facility] MCH 29.0 27.0 - 32.0 pcg LAB HEMETOLOGY METHOD 03/27/2024 10:40 AM [facility] MCHC 32.2 32.0 - 37.0 g/dL LAB HEMETOLOGY METHOD 03/27/2024 10:40 AM [facility] RDW 13.4 11.0 - 15.0 % LAB HEMETOLOGY METHOD 03/27/2024 10:40 AM [facility] Platelets 330 130 - 400 K/mcL LAB HEMETOLOGY METHOD 03/27/2024 10:40 AM [facility] MPV 11.0 7.0 - 11.0 FL LAB HEMETOLOGY METHOD 03/27/2024 10:40 AM [facility] NRBC 0.0 <1.0 % LAB HEMETOLOGY METHOD 03/27/2024 10:40 AM [facility] NRBC Absolute 0.00 <0.10 K/mcL LAB HEMETOLOGY METHOD 03/27/2024 10:40 AM [facility] Neutrophils Relative 82.0 % LAB HEMETOLOGY METHOD 03/27/2024 10:40 AM [facility] Lymphocytes Relative 12.1 % LAB HEMETOLOGY METHOD 03/27/2024 10:40 AM [facility] Monocytes Relative 5.0 % LAB HEMETOLOGY METHOD 03/27/2024 10:40 AM [facility] Eosinophils Relative 0.3 % LAB HEMETOLOGY METHOD 03/27/2024 10:40 AM [facility] Basophils Relative 0.3 % LAB HEMETOLOGY METHOD 03/27/2024 10:40 AM [facility] Immature Granulocytes Relative 0.3 % LAB HEMETOLOGY METHOD 03/27/2024 10:40 AM [facility] Neutrophils Absolute 8.41(H) 1.50 - 7.00 K/mcL LAB HEMETOLOGY METHOD 03/27/2024 10:40 AM [facility] Lymphocytes Absolute 1.24 1.00 - 5.00 K/mcL LAB HEMETOLOGY METHOD 03/27/2024 10:40 AM [facility] Monocytes Absolute 0.51 0.20 - 1.00 K/mcL LAB HEMETOLOGY METHOD 03/27/2024 10:40 AM [facility] Eosinophils Absolute 0.03 0.00 - 0.50 K/mcL LAB HEMETOLOGY METHOD 03/27/2024 10:40 AM EST [facility] Basophils Absolute 0.03 0.00 - 0.20 K/[facility] LAB HEMETOLOGY METHOD 03/27/2024 10:40 AM EST [facility] Immature Granulocytes Absolute 0.03 0.00 - 0.03 K/[facility] HEMETOLOGY METHOD 03/27/2024 10:40 AM EST [facility] Blood Venous blood specimen / Unknown Venipuncture / Unknown 03/27/2024 10:22 AM EST 03/27/2024 10:29 AM EST us Morgan Rizzo MD LAB BLOOD ORDERABLES Alicia l Result Performing Organization Address City/[facility]/ZIP Co de Phone Number [facility] [address] [place] [address], [place] [phone] * Lipase (03/27/2024 10:22 AM EST) Pathologist [facility] Lipase 24 13 - 75 unit/L LAB CHEMISTRY METHOD 03/27/2024 11:00 AM EST [facility] Blood Venous blood specimen / Unknown Venipuncture / Unknown 03/27/2024 10:22 AM EST 03/27/2024 10:29 AM EST Morgan Rizzo MD LAB BLOOD ORDERABLES Alicia l Result [facility] [address] [place] [address], [place] [phone] * (ABNORMAL) Comprehensive metabolic panel (03/27/2024 10:22 AM EST) Sodium 140 133 - 145 mmol/L LAB CHEMISTRY METHOD 03/27/2024 11:05 AM [facility] Potassium 4.1 3.5 - 5.5 mmol/L LAB CHEMISTRY METHOD 03/27/2024 11:05 AM EST [facility] Chloride 109 96 - 110 mmol/L LAB CHEMISTRY METHOD 03/27/2024 11:05 AM [facility] CO2 25 21 - 32 mmol/L LAB CHEMISTRY METHOD 03/27/2024 11:05 AM [facility] Anion Gap 6 3 - 11 LAB CHEMISTRY METHOD 03/27/2024 11:05 AM [facility] Glucose 160(H) 70 - 100 mg/dL LAB CHEMISTRY METHOD 03/27/2024 11:05 AM [facility] BUN 20 5 - 25 mg/dL LAB CHEMISTRY METHOD 03/27/2024 11:05 AM [facility] Creatinine 0.62 0.50 - 1.10 mg/dL LAB CHEMISTRY METHOD 03/27/2024 11:05 AM [facility] eGFR 107 >=60 mL/min/1. 73m2 LAB CHEMISTRY METHOD 03/27/2024 11:05 AM [facility] Comment:Calculation based on the??Chronic Kidney Disease Epidemiology Collaboration (CKD-EPI) equation refit??without adjustment for race. BUN/Creatinine Ratio 32.3 LAB CHEMISTRY METHOD 03/27/2024 11:05 AM [facility] Calcium 9.3 8.5 - 10.5 mg/dL LAB CHEMISTRY METHOD 03/27/2024 11:05 AM [facility] AST (SGOT) 20 10 - 42 unit/L LAB CHEMISTRY METHOD 03/27/2024 11:05 AM [facility] ALT (SGPT) 26 10 - 60 unit/L LAB CHEMISTRY METHOD 03/27/2024 11:05 AM [facility] Alkaline Phosphatase 97 42 - 121 unit/L LAB CHEMISTRY METHOD 03/27/2024 11:05 AM [facility] Total Protein 8.0 6.0 - 8.0 g/dL LAB CHEMISTRY METHOD 03/27/2024 11:05 AM [facility] Albumin 3.6 3.2 - 5.0 g/dL LAB CHEMISTRY METHOD 03/27/2024 11:05 AM EST [facility] Total Bilirubin 0.4 0.0 - 1.4 mg/dL LAB CHEMISTRY METHOD 03/27/2024 11:05 AM EST [facility] Blood Venous blood specimen / Unknown Venipuncture / Unknown 03/27/2024 10:22 AM EST 03/27/2024 10:29 AM EST us Morgan Rizzo MD LAB BLOOD ORDERABLES Alicia l Result [facility] [address] [place] [address], [place] [phone] documented in this encounter Visit Diagnoses Diagnosis Ureteral calculus, left- Primary Calculus of ureter documented in this encounter Administered Medications Inactive Administered Medications - up to 3 most recent administrations Medication Order MAR Action Action Date Dose Rate Site ketorolac (TORADOL) injection 30 mg 30 mg, intravenous, Once, On Sat03/27/24 at 1333, For 1 dose Given 03/27/2024 2:11 PM EST 30 mg ondansetron (PF) (ZOFRAN) injection 4 mg 4 mg, intravenous, Once, On Sat03/27/24 at 1333, For 1 dose Given 03/27/2024 2:12 PM EST 4 mg sodium chloride 0.9 % bolus 1,000 mL 1,000 mL, intravenous, at 2,000 mL/hr, Administer over 30 Minutes, Once, On Sat03/27/24 at 1333, For 1 dose New Bag 03/27/2024 2:11 PM EST 1,000 mL 2000 mL/hr documented in this encounter Active and Recently Administered Medications Times are shown in EST. Scheduled Medication Order 03/25/2024 03/26/2024 03/27/2024 ketorolac (TORADOL) injection 30 mg (COMPLETED) 30 mg, intravenous, Once, On Sat03/27/24 at 1333, For 1 dose 1411 (Given - Provid er: Danna Rogers RN) ondansetron (PF) (ZOFRAN) injection 4 mg (COMPLETED) 4 mg, intravenous, Once, On Sat03/27/24 at 1333, For 1 dose 1412 (Given - Provid er: Danna Rogers RN) sodium chloride 0.9 % bolus 1,000 mL (COMPLETED) 1,000 mL, intravenous, at 2,000 mL/hr, Administer over 30 Minutes, Once, On Sat03/27/24 at 1333, For 1 dose 1411 (New Bag - Prov ider: Danna Rogers RN)[phone] (Stopped - Provider: Danna Rogers RN) documented in this encounter Care Teams Molten Iron Pourer Relationship Specialty Start Date End Date Cornell Fragoso [address], [place] PCP - General Internal Medicine 01/18/21 documented as of this encounter
--- NOTE | 2024-04-07 14:10 | HO.ANESPROP2 ---
HPI - Anesthesia Eval Consult details Narrative: 53 yo female patient for Cystoscopy, Left ureteroscopy, retro,laser, stent Left ureter PMFSH Active Problems Active Problems: All Active Problems (Updated 04/07/24 @ 15:15 by Ramila Yeboah MD) Hydronephrosis concurrent with and due to calculi of kidney and ureter (Acute) Left flank pain (Acute) Renal cyst (Acute) Nephrolithiasis (Acute) Nausea and vomiting (Acute) Retention, urine (Acute) Family history of colon cancer (Acute) Colon cancer screening (Acute) GERD (gastroesophageal reflux disease) (Acute) Chronic low back pain (Acute) Stress incontinence (Acute) Mixed incontinence (Acute) Past Medical History Medical History Retention, urine Nephrolithiasis Vitiligo Mild acid reflux HTN (hypertension) Renal cyst, acquired Family History Family History Mother Diabetes HTN (hypertension) Father HTN (hypertension) Brother Colon cancer Family history of problems with anesthesia: No Surgical History Surgical History Hx of colonoscopy History of lithotripsy History of hernia repair History of breast surgery History of tubal ligation History of Problems with Anesthesia: No Social History Social History Household Members: Significant Other Are you a primary patient care coordinator to a significant other at home: No Do you presently have visiting nurse or other home services: No Alcohol intake: never Patient Tobacco Use Status: Never used Tobacco Use of substances other than those prescribed or required for medical reasons: No Have you been hit, kicked, punched, or otherwise hurt by someone within the past year? If so, by whom?: No Are you DNR?: No Advance Directives: No Advance Directives Information Provided: Yes Recently lost weight without trying: No Nutrition Risks: No Nutritional Risk Patient : No Meds Allergies Allergy/AdvReac Type Severity Reaction Status Date / Time No Known Allergies Allergy Verified 04/06/24 08:28 Active Medications: Current Medications Lactated Ringer's (Lr) 1,000 mls @ 80 mls/hr IVCONT .[id number] CHRISTIAN Last Admin: 04/07/24 13:38 Dose: 80 mls/hr Home Medications ?Medication ?Instructions ?Recorded ?Confirmed ?Last Taken ?Type lisinopril 20 mg tablet 20 mg PO DAILY 09/13/21 01/06/24 Unknown History ibuprofen 600 mg tablet mg PO 3XD 04/06/24 Unknown History Exam Height,Weight and Vital Signs: Height 4 ft 11 in Weight 74.7 kg Last Vital Signs Temp 97.9 F 04/07/24 13:23 Pulse 75 04/07/24 13:23 Resp 14 04/07/24 13:23 BP 160/92 H 04/07/24 13:23 Pulse Ox 97 04/07/24 13:23 O2 Del Method Room Air 04/07/24 13:23 Airway Mallampati Class: II TM Dist: >3cm Neck ROM: Full Loose/Missing/Broken Teeth: Yes (Broken tooth and missing tooth bottom right back. Denies loose teeth) Heart: RRR Lungs: CTAB Assessment and Plan Assessment Anesthesia Assessment: Anesthesia Plan Discussed and Chart Reviewed Final Anesthetic Review Family History of Problems with Anesthesia: No History of Problems with Anesthesia: No NPO: Yes ASA Class: II Final Preanesthetic Review: No Changes in Pt Med Stat, Meds/Allgs Chart Reviewed, Consent Obtained/Reviewed and Anes Risks/Benef Reviewed Patient Risk: Intermediate Procedure Risk: Low Assessment/Block/Sedation in SS: Assess/Block/Sedation-SS Anesthetic Plan Anesthetic Plan: GA Disposition: Standard PACU
--- NOTE | 2024-04-07 14:50 | PC.NURSE ---
report given to michelle herrera rn at this time. aware of three areas to sign on preop record along with checking 24 hour report and surgeon/anesthesiologist completing consents and surgeon marking patient.
--- NOTE | 2024-04-07 15:19 | MHC.SHP ---
Pre-Procedural Eval Section A - 24 Hr Update-Section A only Date of Service: 04/07/24 The patient is an INPATIENT: No The patient has been examined within 24 hours of the surgical procedure. The History & Physical has been completed within 30 days and I have reviewed it.: Yes Section B - Complete if H&P > 30 days Chief Complaint: Calculus of ureter Allergies: Allergies Allergy/AdvReac Type Severity Reaction Status Date / Time No Known Allergies Allergy Verified 04/06/24 08:28 Plan Diagnosis/Plan: Unchanged I have reviewed the history and physical and performed a pertinent physical examination on my patient. No changes have occurred unless specified. Plan for Cystoscopy, left ureteroscopy, possible laser lithotripsy, possible ureteral stent. Risks discussed included but not limited to, possible need to repeat procedure if stone is not completely fragmented, Irritative voiding symptoms, bladder spasms, urgency, blood in urine. Time Spent With Patient Time: Total time managing care of this patient today ____ minutes.
--- NOTE | 2024-04-07 17:14 | P.OP_ITS ---
Operative Note Operative Note Date of Service: 04/07/24 Narrative: PreOperative Diagnosis:?? left ureteral stone, left hydro Post Operative Diagnosis:?? left ureteral stone, left hydro Procedure: - Cystoscopy, left retrograde, left ureteroscopy laser lithotripsy stent insertion, 7 Setswana by 24 cm Surgeon:?Dr Jesús Bundy Anesthesia:? General Procedure: After informed consent was verified the patient was brought to the operating room placed on the OR table in supine position.? General Anesthesia was administered per protocol.? The patient was placed in lithotomy position, prepped and draped in the usual sterile fashion.? Safety pause time-out and side of surgery confirmed.? Antibiotics confirmed. 2% lidocaine jelly 10 mL was passed transurethrally. A 22 Setswana cystoscope was inserted transurethrally, the bladder was visualized.? Both ureteric orifices were in normal position. An open-ended ureteral catheter was passed into the left ureteral orifice and a retrograde examination was performed. There was a filling defect in the distal ureter and dilatation proximal to the filling defect. Attempts to pass the guidewire beyond the stone met with resistance. The ureteroscope was passed transuretrally and the stone was visualized and was impacted along the wall of the ureter., a guide wire was able to be maneuvered past the stone. The ureteroscope was removed. The guide wire was attached to the drapes as a safety. The semi rigid ureteroscope was replaced along side the guide wire and the laser fiber 365 was used to laser the stone, with pullsating setting 0.6 J x 5 H. There was good fragmentation of the stone. The ureteroscope was removed. The cystoscope was passed over the safety guidewire. A? 7 Setswana by 24 cm stent was placed into the ureter and renal pelvis under a combination of fluoroscopy and direct visualization. The bladder noted tiny stone fragments that were drained and the drain netting was cut to send any fragments that may be adherent to it for analysis. The bladder was emptied.? The rigid cystoscope was removed. ? The patient tolerated the procedure well and was brought to the recovery room in stable condition. Complications: None Drains: Ureteral stent as dictated above
[2024-04-07] MEDS: fentaNYL citrate/PF 100 MCG/2 ML VIAL 25 MCG IVPUSH ×2 (17:37→17:42)
[2024-04-07] MEDS: Phenazopyridine HCL 200 MG TABLET PO (17:53)
[2024-04-07] MEDS: oxyCODONE HCl Immed Release 5 MG TABLET PO (17:54)
== END 2024-04-07 18:47 | disposition home or self-care (01) ==
PROVIDERS: PCP Internal Medicine; Visit Provider Urology
PROC: (CPT 52356; principal; 2024-04-07 15:00)
DX: N13.2 Hydronephrosis with renal and ureteral calculous obstruction (principal); R33.9 Retention of urine, unspecified; Z87.442 Personal history of urinary calculi; R35.1 Nocturia; N28.1 Cyst of kidney, acquired; I10 Essential (primary) hypertension; Z79.1 Long term (current) use of non-steroidal anti-inflammatories (NSAID); Z79.899 Other long term (current) drug therapy; L80 Vitiligo; K21.9 Gastro-esophageal reflux disease without esophagitis
CPT/HCPCS: 52356; 88300; C1758; C1769; C2617; J0131; J0690; J1100; J1940; J2003; J2250; J2405; J2704; J3010; Q9967

== ENCOUNTER → 2024-04-07 12:53 | Outpatient (BNV) | payer OTHER, SELFPAY | PROVIDERS: PCP Internal Medicine; Visit Provider Urology | DX: N20.1 Calculus of ureter (principal); N13.30 Unspecified hydronephrosis | CPT/HCPCS: 52356 ==

== ENCOUNTER 2024-04-17 09:59 | Outpatient (AMB) | payer OTHER, SELFPAY ==
--- NOTE | 2024-04-17 10:40 | A.OFFVIS_ITS ---
Intake Visit Reasons: Stent Removal Senior Compensation Analyst Required: Yes Senior Compensation Analyst Services: Senior Compensation Analyst Present Senior Compensation Analyst Name: Sachi [id number] Information Interpreted: non-clinical & clinical Allergies No Known Allergies Allergy (Verified 04/06/24 08:28) HPI Comments Details: 04/17/24--here for stent removal. Status post right ureteroscopy laser lithotripsy ureteral stent on 04/07/2024. Cystoscopy stent removed today without difficulty. Discussed metabolic workup 24 hour urine. Follow-up with nurse practitioner. 04/06/24--Floresita is a pleasant 53 year old Kosovan speaking patient of Dr. Beatriz Gonzalez. She has a past medical history of nephrolithiasis, vitiligo, GERD, hypertension, and renal cysts. She presents to the office today for a follow up of her nephrolithiasis. In discussion with the patient today she reports having seeked emergency room care multiple times at [facility] for ongoing left-sided flank pain she had been experiencing. She also reports having followed up with her PCP at which time recommendations were made for further assessment evaluation. CT report results were reviewed today. CT of the abdomen and pelvis without contrast that was performed 03/27/24 at [facility] notes there is a 6 mm stone in the distal left ureter with associated moderate hydroureteronephrosis. Trace right medullary calcifications. Low-density les ion in the right kidney too small to characterize probably represents a cyst. Punctate stones in the left kidney. She continues to report ongoing left-sided flank pain. In office urinalysis results reviewed with the patient today. We discussed at length further treatment options and risks and benefits of these treatment options. She otherwise denies urinary urgency, urinary frequency, incontinence, nocturia, hematuria, dysuria, foul smelling urine, changes to urinary stream, fever, and or chills. She is happy with her current voiding parameters. She otherwise offers no issues or concerns at this time. [facility] Medical History Retention, urine Nephrolithiasis Vitiligo Mild acid reflux HTN (hypertension) Renal cyst, acquired Surgical History Hx of colonoscopy History of lithotripsy History of hernia repair History of breast surgery History of tubal ligation Family History Mother Diabetes HTN (hypertension) Father HTN (hypertension) Brother Colon cancer Social History Household Members: Significant Other Are you a primary personal care aid to a significant other at home: No Do you presently have visiting nurse or other home services: No Alcohol intake: never Patient Tobacco Use Status: Never used Tobacco Review of Systems Const All systems reviewed & are unremarkable except as noted in HPI and below Reports no additional complaints Eyes Reports no additional complaints ENT Reports no additional complaints Card Reports no additional complaints Resp Reports no additional complaints GI Reports no additional complaints Reports as per HPI Musc Reports no additional complaints Skin/Breast Reports system reviewed and no additional complaints, except as documented Neuro Reports no additional complaints Psych Reports no additional complaints Endo Reports no additional complaints Adebayo/Lymph Reports no additional complaints Aller/Immun Reports no additional complaints Office Procedures Cystoscopy Consent Discussed risk and benefit or proposed procedure with the patient. Information consent for procedure given to the patient. Discussed technical aspects, risks, benefits and alternatives in full. Addressed all of the patient's questions and concerns regarding the procedure. The patient demonstrated knowledge and understanding. They wish to proceed with this procedure. Preparation The patient was prepped in the usual manner. A licensed funeral director was present and in the room. Genitalia was prepped with betadine solution in a sterile manner. Lidocaine Jelly 2% was placed into the urethra and 16Fr flexible Olympus cystoscope was inserted into the meatus after adequate lubrication. 33716-[id number] with stent removal DISPOSABLE SCOPE URO-G FLEXIBLE SCOPE Procedure code (CPT) selection complete Office Meds lidocaine HCl 2 % mucosal jelly in applicator Performing Provider: Jesús Bundy MD Performing Location: [facility] Administered by: Gilberto Elder LPN on 04/17/24 10:41 Dose Route Admin Location Dispensed Lot Number Expiration Date [facility] Press Operator Helper 10 mL intra-urethral 10 mL naproxen 500 mg tablet Performing Provider: Jesús Bundy MD Performing Location: [facility] Administered by: Gilberto Elder LPN on 04/17/24 10:41 Dose Route Admin Location Dispensed Lot Number Expiration Date [facility] Press Operator Helper 500 mg PO 1 tab ciprofloxacin HCl 500 mg tablet Performing Provider: Jesús Bundy MD Performing Location[facility] Administered by: Gilberto Elder LPN on 04/17/24 10:41 Dose Route Admin Location Dispensed Lot Number Expiration Date [employer] Press Operator Helper 500 mg PO 1 tab Results Reviewed Results Reviewed: Date of Service: 11/15/23 Procedure(s): US renal BI FINDINGS: RIGHT KIDNEY: 10.5 x 4.6 x 4.5 cm (SAG x AP x TRV). The kidney is normal in size, contour, and echogenicity. Renal cortical thickness is normal. No renal calculi or hydronephrosis. A benign minimally complex Bosniak class II, 2.3 cm renal cyst is noted which requires no additional imaging or follow up. No solid renal masses are seen. LEFT KIDNEY: 10.4 x 5.0 x 4.6 cm (SAG x AP x TRV). The kidney is normal in size, contour, and echogenicity. Renal cortical thickness is normal. There is a 7 mm echogenic focus at the lower pole of the left kidney with twinkle artifact consistent with a nonobstructing calculus. No focal parenchymal lesions or hydronephrosis. IMPRESSION: Nonobstructing 7 mm left lower pole renal calculus. Assessment & Plan Assessment & Plan (1) Nephrolithiasis: Code(s): N20.0 - Calculus of kidney Category: Medical (2) Renal cyst: Code(s): N28.1 - Cyst of kidney, acquired Category: Medical Plan Stent removed today Discussed 24 hr urine collection for further evaluation Orders: Orders AMB Cystoscopy Today N20.0 - Calculus of kidney Patient Instructions: The patient had an opportunity to ask questions regarding treatment plan. The patient expressed understanding and agreement with the above treatment plan. The patient is aware they should contact our office by phone for worsening of their current condition or the appearance of new symptoms. Compliance is encouraged with any medications and followup testing that is ordered. It is a privilege to be allowed the opportunity to participate in the urologic care of your patient. If you have any questions or concerns regarding treatment for the above conditions please do not hesitate to contact me. The office telephone contact is [phone]. This note is constructed in part using voice recognition software. While every effort has been made to ensure accuracy manager bench errors may have been included. Yours sincerely, Jesús Bundy MD Coding Level of Care Code Procedure Only Diagnoses Nephrolithiasis N20.0 Renal cyst N28.1 CPT Codes Cystoscopy - CPT: 43746-Ybgepafmvo with stent removal ([id number])
--- OUTSIDE RECORDS SUMMARY | 2024-04-17 10:42 | XMS_ITS | Encounter Summary ---
Author Organization [employer] Address [address] [facility] [address] [place] [address] Care Team Providers Care Web Systems Developer Name Role Phone Cornell Fragoso MD Primary Care Prov ider Reason for Visit * Reason Comments Follow-up Hospital f/u Encounter Details Date Type Department Care Team ([facility] st Contact Info) Description 03/31/2024 2:15 PM EST Office Visit [facility] [address] [place] [address] Cornell Fragoso MD [address] [place] [address] Primary hypertension (Primary Dx); Dietary counseling; Exercise [...] 53 y.o. female who presents for Follow-up ([facility] f/u). Hypertension This is a chronic problem. [...] Info) Description 05/01/2024 8:45 AM EST Telemedicine [facility] [address] [place] [address] Cornell Fragoso MD [address] [place] [address] documented as of this encounter Procedures Procedure Name Priority Date/Time Associated Diagnosis Comments BASIC METABOLIC PANEL Routine 04/03/2024 8:20 AM EST Primary hypertension documented in this encounter Results * (ABNORMAL) Basic Metabolic Panel (04/03/2024 8:20 AM EST) Sodium 146(H) 135 - 145 mmol/L [facility] Potassium 3.5 3.3 - 5.1 mmol/L [facility] Chloride 112(H) 96 - 108 mmol/L [facility] Carbon Dioxide 26 22 - 29 mmol/L [facility] Anion Gap 12 12 - 20 [facility] Urea Nitrogen (BUN) 16 9 - 16 mg/dL [facility] Creatinine, Serum 0.63 0.5 - 1.4 mg/dL [facility] Estimated Glomerular Filt Rate >60 [facility] Comment:Chronic Kidney Disea se: Estimated GFR < 60 mL/min/1.90m6Citlun Kidney Disease: Estimated GFR < 15 mL/min/1.73m2 Glucose 75 60 - 115 mg/dL [facility] Calcium 9.6 8.4 - 10.2 mg/dL [facility] Blood Venous blood specimen / Unknown 04/03/2024 8:20 AM EST 04/03/2024 2:13 PM EST us Cornell Gonzalez MD LAB BLOOD ORDERABL ES Final Result [facility] [address] [place] [address] [phone] documented in this encounter Visit Diagnoses Diagnosis Primary hypertension- Primary Unspecified essential hypertension Dietary counseling Dietary surveillance and counseling Exercise counseling Nephrolithiasis Calculus of kidney documented in this encounter Additional Health Concerns Assessment Noted Time PHQ-9 Depression Total Score: 0 06/21/19 23 10:32 AM EDT documented as of this encounter Care Teams Web Systems Developer Relationship Specialty Start Date End Date Cornell Fragoso MD [address] [place] [id number] PCP - General Internal Medicine 12/30/20 documented as of this encounter
--- OUTSIDE RECORDS SUMMARY | 2024-04-17 10:42 | XMS_ITS | Encounter Summary ---
Author Organization [employer] Address [address] [facility] [address] [place] [address] Care Team Providers Care Complaint Operator Name Role Phone Cornell Fragoso MD Primary Care Prov ider Reason for Visit * Reason Comments Pre-visit Planning SDOH unable to reach LVM Encounter Details Date Type Department Care Team ([facility] st Contact Info) Description 03/24/2024 Patient Outreach [facility] [address] [place] [address] Cornell Fragoso MD [address] [place] [address] Pre-visit Planning (SDOH unable to reach LVM [...] Info) Description 05/01/2024 8:45 AM EST Telemedicine [facility] [address] [place] [address] Cornell Fragoso MD [address] [place] [address] documented as of this encounter Visit Diagnoses Not on filedocumented in this encounter Additional Health Concerns Assessment Noted Time PHQ-9 Depression Total Score: 0 06/21/19 23 10:32 AM EDT documented as of this encounter Care Teams Complaint Operator Relationship Specialty Start Date End Date Cornell Fragoso MD [address] [place] [address] PCP - General Internal Medicine 12/30/20 documented as of this encounter
--- OUTSIDE RECORDS SUMMARY | 2024-04-17 10:42 | XMS_ITS | Encounter Summary ---
Author Organization [employer] Address [address] [facility] [address] [place] [address] Care Team Providers Care Yacht Captain Name Role Phone Cornell Fragoso MD Primary Care Prov ider Reason for Visit * Reason Onset Date Comments Nurse Triage 03/27/2024 Encounter Details Date Type Department Care Team ([facility] st Contact Info) Description 03/27/2024 Telephone [facility] [address] [place] [address] Cornell Fragoso MD [address] [place] [address] Nurse Triage Social History Tobacco Use Types [...] t he electric, gas, oil or water [employer] threatened to shut off services in your [...] 9:26 AM EST Sent to team for [facility] ER status check PRN. * Telephone Encounter - Nayeli Moay RN - 03/27/2024 9:21 AM EST Call returned to Floresita Montes to triage below. No vamp marker needed as this conventional underwriter speaks Lithuanian. Reports having epigastric abdominal pain x 1 week. Per pt worse today. Today onset of vomiting, has yellow green bile. No blood. Denies any diarrhea. Pt having cough congestion and ST 1 week ago. Denies any fever. Pt has not checked BP as kit is out of service. Pt advised of disposition agrees to seek [facility] ER now for evaluation. Pt advised to [...] 05/01/2024 8:45 AM EST Telemedicine [facility] [address] [place] [address] Cornell Fragoso MD [address] [place] [address] documented as of this encounter Visit Diagnoses Not on filedocumented in this encounter Additional Health Concerns Assessment Noted Time PHQ-9 Depression Total Score: 0 06/21/19 23 10:32 AM EDT documented as of this encounter Care Teams Yacht Captain Relationship Specialty Start Date End Date Cornell Fragoso MD [address] [place] [address] PCP - General Internal Medicine 12/30/20 documented as of this encounter
--- OUTSIDE RECORDS SUMMARY | 2024-04-17 10:42 | XMS_ITS | Clinical Summary ---
Author Organization [facility] Address [address] [place] [address] Phone Care Team Providers Care Network Design Architect Name Role Phone Cornell Fragoso Primary Care [...] EST - 03/27/2024 6:45 PM EST Emergency [facility] Emergency [address] [place] [address] Morgan Rizzo MD Ureteral calculus, left (Primary Dx) Discharge Disposition: Home or Self Care from Last 3 Months Surgical History Surgery Date Site/Laterality Comments BREAST LUMPECTOMY PROCEDURE: HISTORICAL BREAST LUMPECTOMY INCISIONAL HERNIA REPAIR PROCEDURE: NE IMPLANT MESH OPN HERNIA RPR/DEBRIDEMENT CLOSURE TUBAL [...] 08/01/1990 Cervical Cancer Screening: Pap Smear 08/01/1992 COVID-19 Vaccine (3 - Pfizer risk series) 08/17/2020 07/20/2020, 06/29/2020 Colorectal Cancer Screening: Colonoscopy 01/28/2022 HIV Screening 01/28/2022 Hepatitis C Screening 01/28/2022 Social Influencers of Health Screening 01/28/2022 Depression Screening 06/21/2023 06/20/2022 Hypertension/CHF/CAD Annual BMP Blood Test 03/27/2025 03/27/2024 DTaP,Tdap,and Td Vaccines (2 - Td or Tdap) 01/03/2026 01/04/2016 Cholesterol Screening (Lipid Panel) 02/15/2027 02/15/2022 Zoster [...] Signed Date: 03/27/2024 15:51 ET Workstation ID: [id number] Transcribed By: Self Edit Transcribed Date: 03/27/2024 [...] Signed Date: 03/27/2024 15:51 ET Workstation ID: [id number] Transcribed By: Self Edit Transcribed Date: 03/27/2024 15:41 ET us [place] [facility] IMG CT PROCEDURES Final Resul t * (ABNORMAL) Urinalysis with reflex microscopic and culture (03/27/2024 1:22 PM EST) Specific [place] Urine 1.021 1.003 - 1.030 LAB URINALYSIS - AUTOMATED METHOD 03/27/2024 2:42 PM [facility] pH, Urine 5.5 5.0 - 8.0 pH LAB URINALYSIS - AUTOMATED METHOD 03/27/2024 2:42 PM [facility] Leukocytes, Urine Small(A) Negative LAB URINALYSIS - AUTOMATED METHOD 03/27/2024 2:42 PM [facility] Nitrite, Urine Negative Negative LAB URINALYSIS - AUTOMATED METHOD 03/27/2024 2:42 PM [facility] Protein, Urine Negative <=Trace mg/dL LAB URINALYSIS - AUTOMATED METHOD 03/27/2024 2:42 PM [facility] Glucose, Urine Negative Negative mg/dL LAB URINALYSIS - AUTOMATED METHOD 03/27/2024 2:42 PM [facility] Ketones, Urine 15(A) Negative mg/dL LAB URINALYSIS - AUTOMATED METHOD 03/27/2024 2:42 PM [facility] Urobilinogen, Urine 1.0 0.2 - 1.0 mg/dL LAB URINALYSIS - AUTOMATED METHOD 03/27/2024 2:42 PM [facility] Bilirubin, Urine Negative Negative LAB URINALYSIS - AUTOMATED METHOD 03/27/2024 2:42 PM [facility] Blood, Urine Trace(A) Negative LAB URINALYSIS - AUTOMATED METHOD 03/27/2024 2:42 PM [facility] RBC, Urine 9.6(H) 0 - 4 /HPF LAB URINALYSIS - AUTOMATED METHOD 03/27/2024 2:42 PM [facility] WBC, Urine 13.5(H) 0 - 4 /HPF LAB URINALYSIS - AUTOMATED METHOD 03/27/2024 2:42 PM [facility] Squamous Epithelial, Urine 66(H) 0 - 60 /LPF LAB URINALYSIS - AUTOMATED METHOD 03/27/2024 2:42 PM [facility] Bacteria, Urine Negative Negative /HPF LAB URINALYSIS - AUTOMATED METHOD 03/27/2024 2:42 PM [facility] Hyaline Casts, Urine 0.8 0 - 3 /LPF LAB URINALYSIS - AUTOMATED METHOD 03/27/2024 2:42 PM [facility] Urine Urine specimen obtained by clean catch procedure / Unknown Non-blood Collection / Unknown 03/27/2024 1:22 PM EST 03/27/2024 1:57 PM EST Morgan Rizzo MD LAB URINE ORDERABLES Alicia l Result Performing Organization Address City/Va Hospital/ZIP Co de Phone Number [facility] [address] [place] [address], [place] [phone] * Miranda urine culture tube (03/27/2024 1:22 PM EST) Extra Tube Hold for add-ons. 03/27/2024 3:02 PM EST [facility] Comment:Auto resulted. Urine Urine specimen obtained by clean catch procedure / Unknown Non-blood Collection / Unknown 03/27/2024 1:22 PM EST 03/27/2024 1:57 PM EST Morgan Rizzo MD LAB URINE ORDERABLES Alicia l Result [facility] [address] [place] [address], [place] [phone] * Culture urine (03/27/2024 1:22 PM EST) [facility] Culture, Urine No growth 03/28/2024 9:37 AM [facility] Urine Urine specimen obtained by clean catch procedure / Unknown Non-blood Collection / Unknown 03/27/2024 1:22 PM EST 03/27/2024 2:42 PM EST Morgan Rizzo MD LAB MICROBIOLOGY - GENERA L ORDERABLES Final Result [facility] [address] [place] [address], [place] [phone] * (ABNORMAL) CBC auto differential (03/27/2024 10:22 AM EST) [facility] WBC 10.3 4.8 - 10.8 K/mcL LAB HEMETOLOGY METHOD 03/27/2024 10:40 AM [facility] RBC 4.60 3.80 - 4.80 M/mcL LAB HEMETOLOGY METHOD 03/27/2024 10:40 AM [facility] Hemoglobin 13.2 11.5 - 16.0 g/dL LAB HEMETOLOGY METHOD 03/27/2024 10:40 AM [facility] Hematocrit 41.0 35.0 - 47.0 % LAB HEMETOLOGY METHOD 03/27/2024 10:40 AM [facility] MCV 90.1 79.0 - 98.0 FL LAB HEMETOLOGY METHOD 03/27/2024 10:40 AM [facility] MCH 29.0 27.0 - 32.0 pcg LAB HEMETOLOGY METHOD 03/27/2024 10:40 AM [facility] MCHC 32.2 32.0 - 37.0 g/dL LAB HEMETOLOGY METHOD 03/27/2024 10:40 AM [facility] RDW 13.4 11.0 - 15.0 % LAB HEMETOLOGY METHOD 03/27/2024 10:40 AM [facility] Platelets 330 130 - 400 K/mcL LAB HEMETOLOGY METHOD 03/27/2024 10:40 AM [facility] MPV 11.0 7.0 - 11.0 FL LAB HEMETOLOGY METHOD 03/27/2024 10:40 AM [facility] NRBC 0.0 <1.0 % LAB HEMETOLOGY METHOD 03/27/2024 10:40 AM [facility] NRBC Absolute 0.00 <0.10 K/mcL LAB HEMETOLOGY METHOD 03/27/2024 10:40 AM [facility] Neutrophils Relative 82.0 % LAB HEMETOLOGY METHOD 03/27/2024 10:40 AM [facility] Lymphocytes Relative 12.1 % LAB HEMETOLOGY METHOD 03/27/2024 10:40 AM [facility] Monocytes Relative 5.0 % LAB HEMETOLOGY METHOD 03/27/2024 10:40 AM [facility] Eosinophils Relative 0.3 % LAB HEMETOLOGY METHOD 03/27/2024 10:40 AM [facility] Basophils Relative 0.3 % LAB HEMETOLOGY METHOD 03/27/2024 10:40 AM [facility] Immature Granulocytes Relative 0.3 % LAB HEMETOLOGY METHOD 03/27/2024 10:40 AM [facility] Neutrophils Absolute 8.41(H) 1.50 - 7.00 K/mcL LAB HEMETOLOGY METHOD 03/27/2024 10:40 AM [facility] Lymphocytes Absolute 1.24 1.00 - 5.00 K/mcL LAB HEMETOLOGY METHOD 03/27/2024 10:40 AM EST [facility] Monocytes Absolute 0.51 0.20 - 1.00 K/mcL LAB HEMETOLOGY METHOD 03/27/2024 10:40 AM EST [facility] Eosinophils Absolute 0.03 0.00 - 0.50 K/mcL LAB HEMETOLOGY METHOD 03/27/2024 10:40 AM EST [facility] Basophils Absolute 0.03 0.00 - 0.20 K/[facility] LAB HEMETOLOGY METHOD 03/27/2024 10:40 AM EST [facility] Immature Granulocytes Absolute 0.03 0.00 - 0.03 K/[facility] LAB HEMETOLOGY METHOD 03/27/2024 10:40 AM EST [facility] Blood Venous blood specimen / Unknown Venipuncture / Unknown 03/27/2024 10:22 AM EST 03/27/2024 10:29 AM EST Morgan Rizzo MD LAB BLOOD ORDERABLES Alicia l Result [facility] [address] [place] [address], [place] [phone] * Lipase (03/27/2024 10:22 AM EST) Lipase 24 13 - 75 unit/L LAB CHEMISTRY METHOD 03/27/2024 11:00 AM EST [facility] Blood Venous blood specimen / Unknown Venipuncture / Unknown 03/27/2024 10:22 AM EST 03/27/2024 10:29 AM EST Morgan Rizzo MD LAB BLOOD ORDERABLES Alicia l Result [facility] [address] [place] [address], [place] [phone] * (ABNORMAL) Comprehensive metabolic panel (03/27/2024 10:22 AM EST) Sodium 140 133 - 145 mmol/L LAB CHEMISTRY METHOD 03/27/2024 11:05 AM [facility] Potassium 4.1 3.5 - 5.5 mmol/L LAB CHEMISTRY METHOD 03/27/2024 11:05 AM [facility] Chloride 109 96 - 110 mmol/L LAB CHEMISTRY METHOD 03/27/2024 11:05 AM [facility] CO2 25 21 - 32 mmol/L LAB CHEMISTRY METHOD 03/27/2024 11:05 AM [facility] Anion Gap 6 3 - 11 LAB CHEMISTRY METHOD 03/27/2024 11:05 AM [facility] Glucose 160(H) 70 - 100 mg/dL LAB CHEMISTRY METHOD 03/27/2024 11:05 AM [facility] BUN 20 5 - 25 mg/dL LAB CHEMISTRY METHOD 03/27/2024 11:05 AM [facility] Creatinine 0.62 0.50 - 1.10 mg/dL LAB CHEMISTRY METHOD 03/27/2024 11:05 AM [facility] eGFR 107 >=60 mL/min/1. 73m2 LAB CHEMISTRY METHOD 03/27/2024 11:05 AM [facility] Comment:Calculation based on the??Chronic Kidney Disease Epidemiology Collaboration (CKD-EPI) equation refit??without adjustment for race. BUN/Creatinine Ratio 32.3 LAB CHEMISTRY METHOD 03/27/2024 11:05 AM [facility] Calcium 9.3 8.5 - 10.5 mg/dL LAB CHEMISTRY METHOD 03/27/2024 11:05 AM [facility] AST (SGOT) 20 10 - 42 unit/L LAB CHEMISTRY METHOD 03/27/2024 11:05 AM [facility] ALT (SGPT) 26 10 - 60 unit/L LAB CHEMISTRY METHOD 03/27/2024 11:05 AM [facility] Alkaline Phosphatase 97 42 - 121 unit/L LAB CHEMISTRY METHOD 03/27/2024 11:05 AM EST [facility] Total Protein 8.0 6.0 - 8.0 g/dL LAB CHEMISTRY METHOD 03/27/2024 11:05 AM EST [facility] Albumin 3.6 3.2 - 5.0 g/dL LAB CHEMISTRY METHOD 03/27/2024 11:05 AM [facility] Total Bilirubin 0.4 0.0 - 1.4 mg/dL LAB CHEMISTRY METHOD 03/27/2024 11:05 AM EST [facility] Blood Venous blood specimen / Unknown Venipuncture / Unknown 03/27/2024 10:22 AM EST 03/27/2024 10:29 AM EST Morgan Rizzo MD LAB BLOOD ORDERABLES Alicia l Result [facility] [address] [place] [address], from Last 3 Months Insurance [facility] [place] [id number] Care Teams Network Design Architect Relationship Specialty Start Date End Date Cornell Fragoso [address], [place] PCP - General Internal Medicine 01/18/21
--- OUTSIDE RECORDS SUMMARY | 2024-04-17 10:43 | XMS_ITS | Clinical Summary ---
Author Organization [employer] Address [address] [place] [address] Care Team Providers Care Brick Burner Name Role Phone Cornell Fragoso MD Primary Care Prov ider Allergies No known active allergies Medications lisinopril 20 MG tabletIndication s:Primary hypertension TAKE 1 TABLET BY MOUTH EVERY DAY 30 tablet 11 05/10/19 24 Active Blood Pressure kit 1 kit Once [...] order (will not trigger notification to Pharmacy)) tamsulosin (Flomax) 0.4 MG 24 hr capsule Take 1 capsule (0.4 mg) by mouth Once per day for 14 days. 14 capsule 03/31/19 25 025 Active Problems Problem Noted Date Diagnosed Date [...] Encounters Date Type Department Care Team Description 04/07/2024 Orders Only [facility] External Provider, [facility] 03/31/2024 2:15 PM EST Office Visit [facility] [address] [place] [address] Cornell Fragoso MD Primary hypertension (Primary Dx); Dietary counseling; Exercise counseling; Nephrolithiasis 03/31/2024 Travel 03/27/2024 Telephone [facility] [address] [place] [address] Cornell Fragoso MD Nurse Triage 03/24/2024 Patient Outreach [facility] [address] [place] [address] Cornell Fragoso MD Pre-visit Planning (SDOH unable to reach LVM ) 03/12/2024 Telephone [facility] [address] [place] [address] Cornell Fragoso MD Chart Prep 03/05/2024 Patient Outreach [facility] [address] [place] [address] Cornell Fragoso MD Pre-visit Planning (SDOH unable to reach LVM) 02/27/2024 Travel 01/30/2024 Refill [facility] [address] [place] [address] Cornell Fragoso MD Primary hypertension from Last [...] Info) Description 05/01/2024 8:45 AM EST Telemedicine [facility] [address] [place], [place] [phone] Cornell Fragoso MD [address] [place] [address] Health Maintenance Due Date Last Done Comments [...] SDOH Screening 06/21/2023 06/20/2022 COVID-19 Vaccine ( season) 2023 07/20/2020, 06/29/2020 Cervical Cancer Screening [...] Procedure Name Priority Date/Time Associated Diagnosis Comments GROSS EXAM WITHOUT SLIDES Routine 04/07/2024 4:58 PM EST FL GUIDANCE IN OR Routine 04/07/2024 4:1 5 PM EST BASIC METABOLIC PANEL Routine 04/03/2024 8:20 AM EST Primary hypertension BI MAMMOGRAM SCREENING TOMOSYNTHESIS BILATERAL Routine 05/31/2023 8:20 AM EDT LIPID PANEL, STANDARD Routine 02/15/2022 8:41 AM EST HM COLONOSCOPY Routine 08/14/2021 11:04 AM EDT ZZZ HISTORICAL HPV MRNA E6/E7 Routine 02/24/2019 8:47 AM EST from Last 3 Months or Most Recently Relevant to Health Maintenance Results * Gross Exam without slides (04/07/2024 4:58 PM EST) 04/07/2024 4:58 PM EST 04/08/2024 8:31 AM EST Narrative [facility] - 04/09/2024 2:44 PM EST ----- ------- Name: Floresita Landaverde ? Age/Sex: 53/F ? : 1970 Unit#: [id number] ?? Attend Dr: Jesús Bundy MD ?Re04/07/24 ?Status: DEP SDC ? Location: HO.SSS ?Disch: ? ----- ------- SPEC : [id number] ?RECD: 04/08/24-830 ? STATUS: ??SOUT ? REQ NUM: [id number] ? CHUCK: 04/07/24-1657 ? SUBM DR: Jesús Bundy MD ? ENTERED: ??04/08/24-840 ?SP TYPE: Surgical ? OTHR DR: Cornell Fragoso MD ORDERED: ??GO ? Diagnosis ?? Left kidney stones: ??Definitive calculous material not identified. ??See description. ?Clinical History Left kidney stone ? Material Received ?? Left kidney stone fragments ? Gross Description Received fresh labeled ?left kidney stone fragments? is a portion of white cloth filtration material with minute flecks of blood. ??No calculi are grossly identified. ??The specimen is not submitted for stone analysis. ??[facility] Results were discussed with Dr. Bundy on 04/09/2024. Copies To: ?? Jesús Bundy MD ?? [facility] ?? [address] [place] [address] [address] ?? [place] [address] ?? [phone] ?? [email or web address] ?? Cornell Fragoso MD ?? [facility] ?? [address] ?? [place] [address] ?? [phone] ----- ------- Signed (signature on file) Juan Zabala MD 04/09/24 1444 ? ----- ------- ? END OF REPORT ? us Generic External Data Provider LAB BLOOD ORDERAB LES Final Result [facility] [address] [facility] [place] [phone] * FL Guidance in OR (04/07/2024 4:15 PM EST) Anatomical Region Laterality Modality X-Ray Angiograph y 04/07/2024 4:15 PM EST Narrative 04/08/2024 7:03 AM EST ? [facility] ?[address] [facility]. ?[place] [address] ? Fluoroscopy Report ? Signed ? Patient: Floresita Landaverde ?MR#: MM ?? [id number] ? : 1970 ?Acct:[id number] ? Age/Sex: 53 / F ?ADM Date: 04/07/24 ? Loc: HO.SSS ? Attending Dr: Jesús Bundy MD ? Ordering Physician: Jesús Bundy MD ?? Date of Service: 04/07/24 ?? Procedure(s): FL guidance in OR ?? Accession Number(s): [id number] ? cc: Jesús Bundy MD; Cornell Fragoso MD ? EXAMINATION: ??FL GUIDANCE ONLY ? HISTORY: CYSTOSCOPY; LASER, STENT PLACEMENT - LEFT ? COMPARISON: ?? Correlation is made with a renal ultrasound dated 11/15/2023. ? TECHNIQUE: ?? Fluoroscopy time: 14.1 seconds. ?? Cumulative Dose: 4.71 mGy. ?? Images: 2. ? FINDINGS: ?? Images demonstrate placement of a left nephroureteral stent. ? FL/FL guidance in OR ?? IMPRESSION: ?? Fluoroscopy during procedure. Please see procedure report for ?? additional information. ? Electronically signed by: ??Colton Elizondo MD ??04/08/2024 07:00 AM EST ?? RP ? Dictated By: ?Colton Elizondo MD ? Signed By: ?<Electronically signed by Colton Elizondo MD in OV> ?04/08/24 0700 ? DD/ 1615 ? TD/TT: 04/07/24 1649 ? Director Clinical Operations: ? Procedure Note Donsherryter, Image - 04/08/[address] [address] Fluoroscopy Report Signed Patient: Floresita LandaverdeMR#: [id number] : 1970Acct:[id number] Age/Sex: 53 / FADM Date: 04/07/24 Loc: .[facility] Attending Dr: Jesús Bundy MD Ordering Physician: Jesús Bundy MD Date of Service: 04/07/24 Procedure(s): FL guidance in OR Accession Number(s): [id number] cc: Jesús Bundy MD; Cornell Fragoso MD EXAMINATION: FL GUIDANCE ONLY HISTORY: CYSTOSCOPY; LASER, STENT PLACEMENT - LEFT COMPARISON: Correlation is made with a renal ultrasound dated 11/15/2023. TECHNIQUE: Fluoroscopy time: 14.1 seconds. Cumulative Dose: 4.71 mGy. Images: 2. FINDINGS: Images demonstrate placement of a left nephroureteral stent. FL/FL guidance in OR IMPRESSION: Fluoroscopy during procedure. Please see procedure report for additional information. Electronically signed by: Colton Elizondo MD 04/08/2024 07:00 AM EST Dictated By: Colton Elizondo MD Signed By: <Electronically signed by Colton Elizondo MD in OV> 04/08/24 0700 DD/ 14 TD/TT: 04/07/241648 Director Clinical Operations: us [facility] External Provider IMG IR PROCEDURES Final Result * (ABNORMAL) Basic Metabolic Panel (04/03/2024 8:20 AM EST) Sodium 146(H) 135 - 145 mmol/L [facility] Potassium 3.5 3.3 - 5.1 mmol/L [facility] Chloride 112(H) 96 - 108 mmol/L [facility] Carbon Dioxide 26 22 - 29 mmol/L [facility] Anion Gap 12 12 - 20 [facility] Urea Nitrogen (BUN) 16 9 - 16 mg/dL [facility] Creatinine, Serum 0.63 0.5 - 1.4 mg/dL [facility] Estimated Glomerular Filt Rate >60 [facility] Comment:Chronic Kidney Disea se: Estimated GFR < 60 mL/min/1.28b8Gukujg Kidney Disease: Estimated GFR < 15 mL/min/1.73m2 Glucose 75 60 - 115 mg/dL [facility] Calcium 9.6 8.4 - 10.2 mg/dL [facility] Blood Venous blood specimen / Unknown 04/03/2024 8:20 AM EST 04/03/2024 2:13 PM EST Cornell Gonzalez MD LAB BLOOD ORDERABL ES Final Result [facility] [address] [place] [phone] * BI Mammogram Screening Tomosynthesis Bilateral (05/31/2023 8:20 AM EDT) Anatomical Region Laterality Modality Breast Bilateral Mammography 05/31/2023 8:20 AM EDT Narrative 06/08/2023 4:42 PM EDT ? [facility] ? [address] ?[place] [address] ? Mammography Report ? Signed ? Patient: Lupillo Montes,Floresita ?MR#: MM ?? [id number] ? : 1970 ?Acct:[id number] ? Age/Sex: 52 / F ?ADM Date: 04/05/24 ? Loc: HO.MAMMO ? Attending Dr: Cornell Gonzalez MD ? Ordering Physician: Cornell Fragoso MD ?Res ?? ults: 2Benign Findings ? Date of Service: 05/31/23 ?Follow Up: 1 Year From Orig ?? inal Mammogram ? Procedure(s): MM tomosynthesis screening BI ?? Accession Number(s): [id number] ? cc: Cornell Fragoso MD ? EXAMINATION: [...] by Laura Sotomayor MD in OV> ? 06/08/238 ? DD/ 0820 ? TD/TT: ? Director Clinical Operations: ? Procedure Note Donjettsoniajuniter, Image - 06/08/2023 Dannielle [facility] [address] [place] [place] [address] Mammography Report Signed Patient: Floresita LandaverdeMR#: [id number] : 1970Acct:[id number] Age/Sex: 52 / FADM Date: 05/31/23 Loc: HO.MAMMO Attending Dr: Cornell Gonzalez MD Ordering Physician: Cornell Fragoso ults: 2Benign Findings Date of Service: 05/31/23Follow Up: 1 Year From Orig ina Mammogram Procedure(s): MM tomosynthesis screening BI Accession Number(s): [id number] cc: Cornell Fragoso MD EXAMINATION: MM SCREENING [...] in OV> 06/08/23 1638 DD/ 0820 TD/TT: Director Clinical Operations: [facility] Beatriz Gonzalez MD IMG BI PROCEDURES Edited Result - Final * (ABNORMAL) Lipid Panel, Standard (02/15/2022 8:41 AM EST) Cholesterol, Total 192 <200 mg/dL [employer] HDL Cholesterol 53 > OR = 50 mg/dL [facility] Triglycerides 81 <150 mg/dL [employer] LDL Cholesterol 121(H) mg/dL (calc) [facility] Comment: Reference range: <100 Desirable range <100 mg/dL for primary prevention; ?? <70 mg/dL for patients with CHD or diabetic patients with > or = 2 CHD risk factors. LDL-C is now calculated using the Buster-Lucio calculation, which is a validated novel method providing better accuracy than the Friedewald equation in the estimation of LDL-C. Buster SS et al. VASYL. 2013;310(19): 8067-3668 (http://education.Labotec/faq/TTQ124) Chol/HDLC Ratio 3.6 <5.0 (calc) [facility] Non-HDL Cholesterol 139(H) <130 mg/dL (calc) [facility] Comment: For patients with diabetes plus 1 major ASCVD risk factor, treating to a non-HDL-C goal of <100 mg/dL (LDL-C of <70 mg/dL) is considered a therapeutic option. 02/15/2022 8:41 AM EST 02/15/2022 8:42 AM EST Narrative [facility] - 02/15/2022 10:38 PM EST FASTING:YES AN UPDATE OR CORRECTION HAS BEEN MADE TO NAME FASTING: YES Cornell Gonzalez MD LAB BLOOD ORDERABL ES Final Result [facility] [address] [facility], 3[address], [place] [address] [employer] [facility] [address], ([address]) [place] [address] * Hm Colonoscopy (08/14/2021 11:04 AM EDT) Historical Provider HEALTH MAINTENANCE Final Result * HPV mRNA E6/E7 (02/24/2019 8:47 AM EST) HPV mRNA E6/E7 Not Detected NOT DETECTED [facility] Comment: This test was performed using the APTIMA(R) HPV Assay ([employer] This assay detects E6/E7 viral messenger RNA (mRNA) from 14 high-risk HPV types (16,18,31,33,35,39,45,51, 52,56,58,59,66,68). For additional information please refer to: http://education.Intent HQ/faq/ZKS514n9 (This link is being provided for informational/ educational purposes only.) The analytical performance characteristics of this assay have been determined by [facility] [place], [place]. The modifications have not been cleared or approved by the FDA. This assay has been validated pursuant to the CLIA regulations and is used for clinical purposes. Test Performed by [facility], [facility], [address] [place] [address] Christopher Hidalgo M.D., Ph.D., Director of Laboratories , CLIA [id number] Please note: ??Effective 11/07/2015, HPV testing will be performed using [employer]'s APTIMA test which targets mRNA. Detecting mRNA instead of DNA, as in older methods, offers significant improvements in specificity. 02/24/2019 8:47 AM EST us Kristin Silvano CHAM HISTORICAL/NON ORDERABLE LABS Final Result [facility] [address] [place] [address], from Last 3 Months or Most Recently Relevant to Health Maintenance Insurance [facility] [employer] Care Teams Brick Burner Relationship Specialty Start Date End Date Cornell Fragoso MD [address] [place] [address] PCP - General Internal Medicine 12/30/20
--- OUTSIDE RECORDS SUMMARY | 2024-04-17 10:43 | XMS_ITS | Encounter Summary ---
Author Organization [employer] Address [address] [place] [address] Care Team Providers Care Ditch Digger Name Role Phone Cornell Fragoso MD Primary [...] Info) Description 05/01/2024 8:45 AM EST Telemedicine [facility] [address] [place] [address] Cornell Fragoso MD [address] [place] [address] documented as of this encounter Visit Diagnoses Not on filedocumented in this encounter Additional Health Concerns Assessment Noted Time PHQ-9 Depression Total Score: 0 06/21/19 23 10:32 AM EDT documented as of this encounter Care Teams Ditch Digger Relationship Specialty Start Date End Date Cornell Fragoso MD [address] [place] [address] PCP - General Internal Medicine 12/30/20 documented as of this encounter
--- OUTSIDE RECORDS SUMMARY | 2024-04-17 10:43 | XMS_ITS | Encounter Summary ---
Author Organization [employer] Address [address] [place] [address] Care Team Providers Care Hooker Machine Tender Name Role Phone Cornell Fragoso MD Primary Care Prov ider Encounter Details Date Type Department Care Team (Late st Contact Info) Description 04/07/2024 Orders Only [facility] External Provider, [facility] Social History Tobacco Use Types Packs/Day Years [...] Info) Description 05/01/2024 8:45 AM EST Telemedicine [facility] MED & PEDS [address] [place], [place] [phone] Cornell Fragoso MD [address] [place] [address] documented as of this encounter Procedures Procedure Name Priority Date/Time Associated Diagnosis Comments GROSS EXAM WITHOUT SLIDES Routine 04/07/2024 4:58 PM EST FL GUIDANCE IN OR Routine 04/07/2024 4:1 5 PM EST documented in this encounter Results * Gross Exam without slides (04/07/2024 4:58 PM EST) 04/07/2024 4:58 PM EST 04/08/2024 8:31 AM EST [facility] LABS - 04/09/2024 2:44 PM EST ----- ------- Name: Floresita Ladnaverde ? Age/Sex: 53/F ? : 1970 Unit#: [id number] ?? Attend Dr: Jesús Bundy MD ?Re04/07/24 ?Status: [facility] ? Location: HO.SSS ?Disch: ? ----- ------- SPEC : [id number] ?RECD: 04/08/24 ? STATUS: ??SOUT ? REQ NUM: [id number] ? CHUCK: 04/07/24 ? SUBM DR: Jesús Bundy MD ? ENTERED: ??04/08/24 ?SP TYPE: Surgical ? OTHR DR: Cornell [...] specimen is not submitted for stone analysis. ??smc Results were discussed with Dr. Bundy on 04/09/2024. Copies To: ?? Jesús Bundy MD ?? [facility] Urology Services ?? [address] ?? [place] [address] ?? [phone] ?? [email or web address] ?? Cornell Fragoso MD ?? [facility] ?? [address] [place] [address] ?? [place] [address] ?? [phone] ----- ------- Signed (signature on file) Juan Zabala MD 04/09/24 7994 ? ----- ------- ? END OF REPORT ? us Generic External Data Provider LAB BLOOD ORDERAB LES Final Result [facility] LABS [address] [place] [address] [phone] * FL Guidance in OR (04/07/2024 4:15 PM EST) Anatomical Region Laterality Modality X-Ray Angiograph y 04/07/2024 4:15 PM EST Narrative 04/08/2024 7:03 AM EST ? [facility] ?[address] ?[place] [address] ? Fluoroscopy Report ? Signed ? Patient: Lupillo Montes,Floresita ?MR#: [id number] ?? [id number] ? : 1970 ?Acct:[id number] ? Age/Sex: 53 / F ?ADM Date: 04/07/24 ? Loc: HO.SSS ? Attending Dr: Jesús Bundy MD ? Ordering Physician: Jesús Bundy MD ?? Date of Service: 04/07/24 ?? Procedure(s): FL guidance in OR ?? Accession Number(s): [id number] ? cc: Jesús Bundy MD; Cornell Fragoso [...] DD/ 1615 ? TD/TT: 04/07/24 1649 ? Preschool Aide: ? Procedure Note Cate, Image - 04/08/[address] [address] Fluoroscopy Report Signed Patient: Lupillo CamHortensia schultz#: [id number] : 1970Acct:[id number] Age/Sex: 53 / FADM Date: 04/07/24 Loc: HO.SSS Attending Dr: Jesús Bundy MD Ordering Physician: Jesús Bundy MD Date of Service: 04/07/24 Procedure(s): FL guidance in OR Accession Number(s): [id number] cc: Jesús Bundy MD; Cornell Fragoso MD [...] by: Colton Elizondo MD 04/08/2024 07:00 AM [facility] Dictated By: Colton Elizondo MD Signed By: <Electronically signed by Colton Elizondo MD in OV> 04/08/24 0700 DD/ 1615 TD/TT: 04/07/24 1649 Preschool Aide: [facility] External Provider IMG IR PROCEDURES Final Result documented in this encounter Visit Diagnoses Not on filedocumented in this encounter Additional Health Concerns Assessment Noted Time PHQ-9 Depression Total Score: 0 06/21/19 23 10:32 AM EDT documented as of this encounter Care Teams Hooker Machine Tender Relationship Specialty Start Date End Date Cornell Fragoso MD [address] [place] [address] PCP - General Internal Medicine 12/30/20 documented as of this encounter
--- OUTSIDE RECORDS SUMMARY | 2024-04-17 10:43 | XMS_ITS | Encounter Summary ---
Author Organization [employer] Address [address] [facility] [address] [place] [address] Care Team Providers Care Boot And Shoe Repairman Name Role Phone Cornell Fragoso MD Primary Care Prov ider Reason for Visit * Reason Comments Med Refill Encounter Details Date Type Department Care Team ([facility] st Contact Info) Description 01/30/2024 Refill [facility] MED & PEDS [address] [place], [place] [phone] Cornell Fragoso MD [address] [place] [address] Primary hypertension Social History Tobacco Use Types [...] Info) Description 05/01/2024 8:45 AM EST Telemedicine [facility] MED & PEDS [address] [place] [address] Cornell Fragoso MD [address] [place] [address] documented as of this encounter Visit Diagnoses Diagnosis Primary hypertension Unspecified essential hypertension documented in this encounter Additional Health Concerns Assessment Noted Time PHQ-9 Depression Total Score: 0 06/21/19 23 10:32 AM EDT documented as of this encounter Care Teams Boot And Shoe Repairman Relationship Specialty Start Date End Date Cornell Fragoso MD [address] [place] [address] PCP - General Internal Medicine 12/30/20 documented as of this encounter
--- OUTSIDE RECORDS SUMMARY | 2024-04-17 10:43 | XMS_ITS | Encounter Summary ---
Author Organization [employer] [facility] Address [address] [place] [address] Care Team Providers Care Radiator Core Tester Name Role Phone Cornell Fragoso MD Primary Care Prov ider Encounter Details Date Type Department Care Team ([facility] Contact Info) Description 02/21/2022 Orders Only [facility] MEDICINE [address] [place] [address] Cornell Fragoso MD [address] [place] [address] Social History Tobacco Use Types Packs/Day Years [...] Info) Description 05/01/2024 8:45 AM EST Telemedicine [facility] MED & PEDS [address] [place] [address] Cornell Fragoso MD [address] [place] [address] documented as of this encounter Visit Diagnoses Not on filedocumented in this encounter Care Teams Radiator Core Tester Relationship Specialty Start Date End Date Cornell Fragoso MD [address] [place] [address] PCP - General Internal Medicine 12/30/20 documented as of this encounter
--- OUTSIDE RECORDS SUMMARY | 2024-04-17 10:43 | XMS_ITS | Encounter Summary ---
Author Organization [employer] Address [address] [place] [address] Care Team Providers Care Head Track Coach Name Role Phone Cornell Fragoso Primary Care Provide r Reason for Visit * Reason Comments Flank Pain 2 weeks flank pain w ith associated vomiting. Called PCP who said to come to ED. Encounter Details Date Type Department Care Team (Late st Contact Info) Description 03/27/2024 12:13 PM EST - 03/27/2024 6:45 PM EST Emergency [facility] Emergency [address] [place] [phone] Morgan Rizzo MD [address] [place] [address] Ureteral calculus, left (Primary Dx) Discharge Disposition: [...] sent through Care Everywhere. * Kidney Stone (Turkish) documented in this encounter Medications at Time [...] EST Emergency Medicine Note Patient Name: Floresita oMntes Initial Evaluation: 03/27/2024 : 1970 Patient's PCP: Carlos Henderson Emergency Physician: Morgan Rizzo MD History [...] HISTORICAL BREAST LUMPECTOMY INCISIONAL HERNIA REPAIR PROCEDURE: MI IMPLANT MESH OPN HERNIA RPR/DEBRIDEMENT CLOSURE TUBAL [...] REFLEX MICROSCOPIC AND CULTURE - Abnormal Specific Tatamy Urine 1.021 pH, Urine 5.5 Leukocytes, Urine [...] Procedure Abnormality Status --------- ------ CBC auto differential[[id number]] Abnormal Final result Please view results for these tests on the individual orders. URINALYSIS WITH REFLEX MICROSCOPIC AND CULTURE Narrative: The following orders were created for panel order Urinalysis with reflex microscopic and culture. Procedure Abnormality Status --------- ------ Urinalysis with reflex ...[[id number]] Abnormal Final result Miranda urine culture tube[[id number]] Final result Please view results for these [...] Signed Date: 03/27/2024 15:51 ET Workstation ID: [id number] Transcribed By: Self Edit Transcribed Date: 03/27/2024 [...] Signed Date: 03/27/2024 15:51 ET Workstation ID: [id number] Transcribed By: Self Edit Transcribed Date: 03/27/2024 [...] Signed Date: 03/27/2024 15:51 ET Workstation ID: [id number] Transcribed By: Self Edit Transcribed Date: 03/27/2024 15:41 ET [place] [facility] [place] PROCEDURES Final Resul t * Culture urine (03/27/2024 1:22 PM EST) Culture, Urine No growth 03/28/2024 9:37 AM EST [facility] Urine Urine specimen obtained by clean catch procedure / Unknown Non-blood Collection / Unknown 03/27/2024 1:22 PM EST 03/27/2024 2:42 PM EST Morgan Rizzo MD LAB MICROBIOLOGY - GENERA L ORDERABLES Final Result Performing Organization Address [facility]/ZIP Co de Phone Number [facility] [address] [place] [address], [place] [phone] * Miranda urine culture tube (03/27/2024 1:22 PM EST) [facility] Extra Tube Hold for add-ons. 03/27/2024 3:02 PM EST [facility] Comment:Auto resulted. Urine Urine specimen obtained by clean catch procedure / Unknown Non-blood Collection / Unknown 03/27/2024 1:22 PM EST 03/27/2024 1:57 PM EST Morgan Rizzo MD LAB URINE ORDERABLES Alicia l Result Performing Organization Address [facility]/ZIP Co de Phone Number [facility] [address] [place] [address], [place] [phone] * (ABNORMAL) Urinalysis with reflex microscopic and culture (03/27/2024 1:22 PM EST) [facility] Specific Tatamy Urine 1.021 1.003 - 1.030 LAB URINALYSIS - AUTOMATED METHOD 03/27/2024 2:42 PM [facility] pH, Urine 5.5 5.0 - 8.0 pH LAB URINALYSIS - AUTOMATED METHOD 03/27/2024 2:42 PM [facility] Leukocytes, Urine Small(A) Negative LAB URINALYSIS - AUTOMATED METHOD 03/27/2024 2:42 PM [facility] Nitrite, Urine Negative Negative LAB URINALYSIS - AUTOMATED METHOD 03/27/2024 2:42 PM [facility] Protein, Urine Negative <=Trace mg/dL LAB URINALYSIS - AUTOMATED METHOD 03/27/2024 2:42 PM [facility] Glucose, Urine Negative Negative mg/dL LAB URINALYSIS - AUTOMATED METHOD 03/27/2024 2:42 PM [facility] Ketones, Urine 15(A) Negative mg/dL LAB URINALYSIS - AUTOMATED METHOD 03/27/2024 2:42 PM [facility] Urobilinogen, Urine 1.0 0.2 - 1.0 mg/dL LAB URINALYSIS - AUTOMATED METHOD 03/27/2024 2:42 PM [facility] Bilirubin, Urine Negative Negative LAB URINALYSIS - AUTOMATED METHOD 03/27/2024 2:42 PM [facility] Blood, Urine Trace(A) Negative LAB URINALYSIS - AUTOMATED METHOD 03/27/2024 2:42 PM [facility] RBC, Urine 9.6(H) 0 - 4 /HPF LAB URINALYSIS - AUTOMATED METHOD 03/27/2024 2:42 PM [facility] WBC, Urine 13.5(H) 0 - 4 /HPF LAB URINALYSIS - AUTOMATED METHOD 03/27/2024 2:42 PM [facility] Squamous Epithelial, Urine 66(H) 0 - 60 /LPF LAB URINALYSIS - AUTOMATED METHOD 03/27/2024 2:42 PM [facility] Bacteria, Urine Negative Negative /HPF LAB URINALYSIS - AUTOMATED METHOD 03/27/2024 2:42 PM [facility] Hyaline Casts, Urine 0.8 0 - 3 /LPF LAB URINALYSIS - AUTOMATED METHOD 03/27/2024 2:42 PM [facility] Urine Urine specimen obtained by clean catch procedure / Unknown Non-blood Collection / Unknown 03/27/2024 1:22 PM EST 03/27/2024 1:57 PM EST Morgan Rizzo MD LAB URINE ORDERABLES Alicia hector Result [facility] [address] [place] [address], * (ABNORMAL) CBC auto differential (03/27/2024 10:22 AM EST) WBC 10.3 4.8 - 10.8 K/mcL LAB HEMETOLOGY METHOD 03/27/2024 10:40 AM [facility] RBC 4.60 3.80 - 4.80 M/mcL LAB HEMETOLOGY METHOD 03/27/2024 10:40 AM [facility] Hemoglobin 13.2 11.5 - 16.0 g/dL LAB HEMETOLOGY METHOD 03/27/2024 10:40 AM [facility] Hematocrit 41.0 35.0 - 47.0 % LAB HEMETOLOGY METHOD 03/27/2024 10:40 AM [facility] MCV 90.1 79.0 - 98.0 FL LAB HEMETOLOGY METHOD 03/27/2024 10:40 AM [facility] MCH 29.0 27.0 - 32.0 pcg LAB HEMETOLOGY METHOD 03/27/2024 10:40 AM [facility] MCHC 32.2 32.0 - 37.0 g/dL LAB HEMETOLOGY METHOD 03/27/2024 10:40 AM [facility] RDW 13.4 11.0 - 15.0 % LAB HEMETOLOGY METHOD 03/27/2024 10:40 AM [facility] Platelets 330 130 - 400 K/mcL LAB HEMETOLOGY METHOD 03/27/2024 10:40 AM [facility] MPV 11.0 7.0 - 11.0 FL LAB HEMETOLOGY METHOD 03/27/2024 10:40 AM [facility] NRBC 0.0 <1.0 % LAB HEMETOLOGY METHOD 03/27/2024 10:40 AM [facility] NRBC Absolute 0.00 <0.10 K/mcL LAB HEMETOLOGY METHOD 03/27/2024 10:40 AM [facility] Neutrophils Relative 82.0 % LAB HEMETOLOGY METHOD 03/27/2024 10:40 AM [facility] Lymphocytes Relative 12.1 % LAB HEMETOLOGY METHOD 03/27/2024 10:40 AM [facility] Monocytes Relative 5.0 % LAB HEMETOLOGY METHOD 03/27/2024 10:40 AM [facility] Eosinophils Relative 0.3 % LAB HEMETOLOGY METHOD 03/27/2024 10:40 AM [facility] Basophils Relative 0.3 % LAB HEMETOLOGY METHOD 03/27/2024 10:40 AM [facility] Immature Granulocytes Relative 0.3 % LAB HEMETOLOGY METHOD 03/27/2024 10:40 AM [facility] Neutrophils Absolute 8.41(H) 1.50 - 7.00 K/mcL LAB HEMETOLOGY METHOD 03/27/2024 10:40 AM [facility] Lymphocytes Absolute 1.24 1.00 - 5.00 K/mcL LAB HEMETOLOGY METHOD 03/27/2024 10:40 AM [facility] Monocytes Absolute 0.51 0.20 - 1.00 K/mcL LAB HEMETOLOGY METHOD 03/27/2024 10:40 AM [facility] Eosinophils Absolute 0.03 0.00 - 0.50 K/mcL LAB HEMETOLOGY METHOD 03/27/2024 10:40 AM EST [facility] Basophils Absolute 0.03 0.00 - 0.20 K/[facility] LAB HEMETOLOGY METHOD 03/27/2024 10:40 AM EST [facility] Immature Granulocytes Absolute 0.03 0.00 - 0.03 K/[facility] LAB HEMETOLOGY METHOD 03/27/2024 10:40 AM EST [facility] Blood Venous blood specimen / Unknown Venipuncture / Unknown 03/27/2024 10:22 AM EST 03/27/2024 10:29 AM EST us Morgan Rizzo MD LAB BLOOD ORDERABLES Alicia l Result Performing Organization Address City/[facility]/ZIP Co de Phone Number [facility] [address] [place] [address], [place] [phone] * Lipase (03/27/2024 10:22 AM EST) Pathologist [facility] Lipase 24 13 - 75 unit/L LAB CHEMISTRY METHOD 03/27/2024 11:00 AM EST [facility] Blood Venous blood specimen / Unknown Venipuncture / Unknown 03/27/2024 10:22 AM EST 03/27/2024 10:29 AM EST Morgan Rizzo MD LAB BLOOD ORDERABLES Alicia l Result [facility] [address] [place] [address], [place] [phone] * (ABNORMAL) Comprehensive metabolic panel (03/27/2024 10:22 AM EST) Sodium 140 133 - 145 mmol/L LAB CHEMISTRY METHOD 03/27/2024 11:05 AM [facility] Potassium 4.1 3.5 - 5.5 mmol/L LAB CHEMISTRY METHOD 03/27/2024 11:05 AM EST [facility] Chloride 109 96 - 110 mmol/L LAB CHEMISTRY METHOD 03/27/2024 11:05 AM [facility] CO2 25 21 - 32 mmol/L LAB CHEMISTRY METHOD 03/27/2024 11:05 AM [facility] Anion Gap 6 3 - 11 LAB CHEMISTRY METHOD 03/27/2024 11:05 AM [facility] Glucose 160(H) 70 - 100 mg/dL LAB CHEMISTRY METHOD 03/27/2024 11:05 AM [facility] BUN 20 5 - 25 mg/dL LAB CHEMISTRY METHOD 03/27/2024 11:05 AM [facility] Creatinine 0.62 0.50 - 1.10 mg/dL LAB CHEMISTRY METHOD 03/27/2024 11:05 AM [facility] eGFR 107 >=60 mL/min/1. 73m2 LAB CHEMISTRY METHOD 03/27/2024 11:05 AM [facility] Comment:Calculation based on the??Chronic Kidney Disease Epidemiology Collaboration (CKD-EPI) equation refit??without adjustment for race. BUN/Creatinine Ratio 32.3 LAB CHEMISTRY METHOD 03/27/2024 11:05 AM [facility] Calcium 9.3 8.5 - 10.5 mg/dL LAB CHEMISTRY METHOD 03/27/2024 11:05 AM [facility] AST (SGOT) 20 10 - 42 unit/L LAB CHEMISTRY METHOD 03/27/2024 11:05 AM [facility] ALT (SGPT) 26 10 - 60 unit/L LAB CHEMISTRY METHOD 03/27/2024 11:05 AM [facility] Alkaline Phosphatase 97 42 - 121 unit/L LAB CHEMISTRY METHOD 03/27/2024 11:05 AM [facility] Total Protein 8.0 6.0 - 8.0 g/dL LAB CHEMISTRY METHOD 03/27/2024 11:05 AM [facility] Albumin 3.6 3.2 - 5.0 g/dL LAB CHEMISTRY METHOD 03/27/2024 11:05 AM EST [facility] Total Bilirubin 0.4 0.0 - 1.4 mg/dL LAB CHEMISTRY METHOD 03/27/2024 11:05 AM EST [facility] Blood Venous blood specimen / Unknown Venipuncture / Unknown 03/27/2024 10:22 AM EST 03/27/2024 10:29 AM EST us Morgan Rizzo MD LAB BLOOD ORDERABLES Alicia l Result [facility] [address] [place] [address], [place] [phone] documented in this encounter Visit Diagnoses Diagnosis [...] RN) documented in this encounter Care Teams Head Track Coach Relationship Specialty Start Date End Date Cornell Fragoso [address] [place], [place] PCP - General Internal Medicine 01/18/21 documented as of this encounter
--- OUTSIDE RECORDS SUMMARY | 2024-04-17 10:43 | XMS_ITS | Encounter Summary ---
Author Organization [employer] Address [address] [place] [address] Care Team Providers Care Job Printer Apprentice Name Role Phone Cornell Fragoso MD Primary Care Prov ider Encounter Details Date Type Department Care Team (Late st Contact Info) Description 06/11/2023 Orders Only [facility] MEDICINE [address] [place] [address] ProviderKrista MD Social History Tobacco Use Types [...] Description 05/01/2024 8:45 AM EST Telemedicine [facility] MED & PEDS [address] [place] [address] Cornell Fragoso MD [address] [place] [address] documented as of this encounter Procedures Procedure [...] documented as of this encounter Care Teams Job Printer Apprentice Relationship Specialty Start Date End Date Cornell Fragoso MD [address] [place] [address] PCP - General Internal Medicine 12/30/20 documented as of this encounter
== END 2024-04-17 11:07 | disposition home or self-care (01) ==
PROVIDERS: PCP Internal Medicine; Visit Provider Urology
DX: Z96.0 Presence of urogenital implants (principal); N20.0 Calculus of kidney; N28.1 Cyst of kidney, acquired
CPT/HCPCS: 52310

== ENCOUNTER → 2024-04-17 09:59 | Outpatient (BNVA) | payer OTHER, SELFPAY | PROVIDERS: PCP Internal Medicine; Visit Provider Urology | DX: Z48.816 Encounter for surgical aftercare following surgery on the genitourinary system (principal) | CPT/HCPCS: 52310 ==

== ENCOUNTER 2024-08-04 08:20 | Outpatient (REF) | payer OTHER, SELFPAY ==
--- OUTSIDE RECORDS SUMMARY | 2024-08-04 08:31 | XMS_ITS | Encounter Summary ---
Author Organization [employer] Address [address] [facility] 7 [place] [address] Care Team Providers Care Principal Database Developer Name Role Phone Cornell Fragoso MD Primary Care Prov ider Reason for Visit * Reason Onset Date Comments Nurse Triage 03/27/2024 Encounter Details Date Type Department Care Team ([facility] st Contact Info) Description 03/27/2024 Telephone [facility] MEDICINE [address] [place] [address] Cornell Fragoso MD [address] [place] [address] Nurse Triage Social History Tobacco Use Types [...] 9:26 AM EST Sent to team for [facility] ER status check PRN. * Telephone Encounter - Nayeli Moya RN - 03/27/2024 9:21 AM EST Call returned to Floresita Montes to triage below. No head of visual merchandising needed as this securities underwriter speaks [place]. Reports having epigastric abdominal pain x 1 week. Per pt worse today. Today onset of vomiting, has yellow green bile. No blood. Denies any diarrhea. Pt having cough congestion and ST 1 week ago. Denies any fever. Pt has not checked BP as kit is out of service. Pt advised of disposition agrees to seek [facility] ER now for evaluation. Pt advised [...] on file documented as of this encounter Visit Diagnoses Not on filedocumented in this encounter Additional Health Concerns Assessment Noted Time PHQ-9 Depression Total Score: 0 06/21/19 23 10:32 AM EDT documented as of this encounter Care Teams Principal Database Developer Relationship Specialty Start Date End Date Cornell Fragoso MD [address] [place] [address] PCP - General Internal Medicine 12/30/20 documented as of this encounter
== END 2024-08-04 08:21 | disposition home or self-care (01) ==
LOC: HO.MAMMO 08:20
PROVIDERS: PCP Internal Medicine; Visit Provider Internal Medicine
DX: Z12.31 Encounter for screening mammogram for malignant neoplasm of breast (principal)
CPT/HCPCS: 77063; 77067

== ENCOUNTER → 2024-08-04 09:15 | Outpatient (BNV) | payer OTHER, SELFPAY | PROVIDERS: PCP Internal Medicine; Visit Provider Internal Medicine | DX: Z12.31 Encounter for screening mammogram for malignant neoplasm of breast (principal) | CPT/HCPCS: 77063; 77067 ==

== ENCOUNTER 2024-08-07 08:22 | Outpatient (REF) | payer OTHER, SELFPAY ==
--- NOTE | ~2024-08-07 | US_ITS ---
CLINICAL HISTORY: N20.0 - Calculus of kidney US Renal Comparison: None Findings: Right kidney normal size and echotexture, 10.6 cm length. Complex lower pole cyst measuring 17 mm. Left kidney normal size and echotexture, 10.0 cm length. Interpolar calculus measuring 3 mm No hydronephrosis of either kidney. Normal color Doppler IMPRESSION: 1. Nonobstructing left renal calculus. 2. Complex lower pole right renal cyst. This could be further assessed with renal protocol CT with and without intravenous contrast, if clinically indicated. This document has been electronically signed by: Kat Reis MD on 08/07/2024 20:55:06
--- OUTSIDE RECORDS SUMMARY | 2024-08-07 08:30 | XMS_ITS | Encounter Summary ---
Author Organization [employer] Address [address] [facility] 7 [place] [address] Care Team Providers Care Frozen Food Selector Name Role Phone Cornell Fragoso MD Primary Care Prov ider Reason for Visit * Reason Onset Date Comments Nurse Triage 03/27/2024 Encounter Details Date Type Department Care Team ([facility] st Contact Info) Description 03/27/2024 Telephone [facility] MEDICINE [address] [place] [address] Cornell Fragoso MD [address] [place] [address] Nurse Triage Social History Tobacco Use Types [...] 9:26 AM EST Sent to team for [facility] ER status check PRN. * Telephone Encounter - Nayeli Moya RN - 03/27/2024 9:21 AM EST Call returned to Floresita Montes to triage below. No garbage truck helper needed as this card writer hand speaks Japanese. Reports having epigastric abdominal pain x 1 week. Per pt worse today. Today onset of vomiting, has yellow green bile. No blood. Denies any diarrhea. Pt having cough congestion and ST 1 week ago. Denies any fever. Pt has not checked BP as kit is out of service. Pt advised of disposition agrees to seek [facility] ER now for evaluation. Pt advised to [...] Care Team (Late st Contact Info) Description 11/16/2024 9:30 AM EDT Office Visit [facility] MED & PEDS [address] [place] [address] Cornell Fragoso MD [address] [place] [address] documented as of this encounter Visit Diagnoses Not on filedocumented in this encounter Additional Health Concerns Assessment Noted Time PHQ-9 Depression Total Score: 0 06/21/19 23 10:32 AM EDT documented as of this encounter Care Teams Frozen Food Selector Relationship Specialty Start Date End Date Cornell Fragoso MD [address] [place] [address] PCP - General Internal Medicine 12/30/20 documented as of this encounter
== END 2024-08-07 08:23 | disposition home or self-care (01) ==
LOC: HO.HMGCX 08:22
PROVIDERS: PCP Internal Medicine; Visit Provider Nurse Practitioner Family
DX: N20.0 Calculus of kidney (principal)
CPT/HCPCS: 76775

== ENCOUNTER → 2024-08-07 09:16 | Outpatient (BNV) | payer OTHER, SELFPAY | PROVIDERS: PCP Internal Medicine; Visit Provider Radiology Diagnostic Radiology | DX: N20.0 Calculus of kidney (principal); N28.1 Cyst of kidney, acquired | CPT/HCPCS: 76775 ==

== ENCOUNTER 2024-08-21 12:39 | Outpatient (AMB) | payer OTHER, SELFPAY ==
--- OUTSIDE RECORDS SUMMARY | 2024-08-21 13:16 | XMS_ITS | Encounter Summary ---
Author Organization [employer] Address [address] [facility] 7 [place] [address] Care Team Providers Care Ict Account Manager Name Role Phone Cornell Fragoso MD Primary Care Prov ider Reason for Visit * Reason Onset Date Comments Nurse Triage 03/27/2024 Encounter Details Date Type Department Care Team ([facility] st Contact Info) Description 03/27/2024 Telephone [facility] MEDICINE [address] [place] [address] Cornell Fragoso MD [address] [place] [address] Nurse Triage Social History Tobacco Use Types [...] 9:26 AM EST Sent to team for [facility] ER status check PRN. * Telephone Encounter - Nayeli Moya RN - 03/27/2024 9:21 AM EST Call returned to Floresita Montes to triage below. No tissue rewinder needed as this typewriter operator automatic speaks Kazakh. Reports having epigastric abdominal pain x 1 week. Per pt worse today. Today onset of vomiting, has yellow green bile. No blood. Denies any diarrhea. Pt having cough congestion and ST 1 week ago. Denies any fever. Pt has not checked BP as kit is out of service. Pt advised of disposition agrees to seek [facility] ER now for evaluation. Pt advised [...] Description 11/16/2024 9:30 AM EDT Office Visit [facility] MED & PEDS [address] [place] [address] Cornell Fragoso MD [address] [place] [address] documented as of this encounter Visit Diagnoses Not on filedocumented in this encounter Additional Health Concerns Assessment Noted Time PHQ-9 Depression Total Score: 0 06/21/19 23 10:32 AM EDT documented as of this encounter Care Teams Ict Account Manager Relationship Specialty Start Date End Date Cornell Fragoso MD [address] [place] [address] PCP - General Internal Medicine 12/30/20 documented as of this encounter
--- NOTE | 2024-08-21 13:22 | A.OFFVIS_ITS ---
Intake Visit Reasons: follow up/ US/ [facility] Intake Note: Patient presents today for follow up/US/[facility] * [facility] comp. 04/25 * Renal US 08/07 Urology Medication: Vitamin B6, Solifenacin Blood Thinner: none Health And Fitness Instructor Required: Yes Health And Fitness Instructor Services: Health And Fitness Instructor Present Health And Fitness Instructor Name: Ruth Kilpatrick Accompanied by: Self / Same As Patient Allergies No Known Allergies Allergy (Verified 08/21/24 13:24) HPI Comments Details: 08/21/24 History of Present Illness - The patient is a 54-year-old female presenting with nephrolithiasis and renal cyst. - Nephrolithiasis: The patient has been managing nephrolithiasis with increased hydration, achieving a urine volume of 2.2 liters, which is within the desired range. - Urine citrate levels are at 888, which is good - However, urine calcium and oxalate levels are elevated, contributing to stone formation. - The patient is currently on vitamin B6, which may aid in reducing urine oxalate levels, but further nephrology consultation is recommended. - Renal cyst: A stable cyst in the right kidney was noted on ultrasound, with no significant changes observed. Results - Urine volume: 2.2 liters, indicating adequate hydration. - Urine citrate: 888 - Elevated urine calcium and oxalate levels, contributing to stone formation. - Ultrasound: Small stone in the left kidney, stable cyst in the right kidney. Discussion Notes I discussed with the patient the importance of maintaining adequate hydration to prevent stone formation, as evidenced by her current urine volume of 2.2 liters. I explained that while her urine citrate levels are favorable, the elevated calcium and oxalate levels require further evaluation by nephrology. We also reviewed the ultrasound findings, noting the stable nature of the renal cyst and the presence of a small stone in the left kidney. 04/17/24--here for stent removal. Status post right ureteroscopy laser lith otripsy ureteral stent on 04/07/2024. Cystoscopy stent removed today without difficulty. Discussed metabolic workup 24 hour urine. Follow-up with nurse practitioner. 04/06/24--Floresita is a pleasant 53 year old Lithuanian speaking patient of Dr. Beatriz Gonzalez. She has a past medical history of nephrolithiasis, vitiligo, GERD, hypertension, and renal cysts. She presents to the office today for a f ollow up of her nephrolithiasis. In discussion with the patient today she reports having seeked emergency room care multiple times at [facility] for ongoing left-sided flank pain she had been experiencing. She also reports having followed up with her PCP at which time recommendations were made for further assessment evaluation. CT report results were reviewed today. CT of the abdomen and pelvis without contrast that was performed 03/27/24 at [place] notes there is a 6 mm stone in the distal left ureter with associated moderate hydroureteronephrosis. Trace right medullary calcifications. Low-density lesion in the right kidney too small to characterize probably represents a cyst. Punctate stones in the left kidney. She continues to report ongoing left-sided flank pain. In office urinalysis results reviewed with the patient today. We discussed at length further treatment options and risks and benefits of these treatment options. She otherwise denies urinary urgency, urinary frequency, incontinence, nocturia, hematuria, dysuria, foul smelling urine, changes to urinary stream, fever, and or chills. She is happy with her current voiding parameters. She otherwise offers no issues or concerns at this time. [facility] Medical History Retention, urine Nephrolithiasis Vitiligo Mild acid reflux HTN (hypertension) Renal cyst, acquired Surgical History Hx of colonoscopy History of lithotripsy History of hernia repair History of breast surgery History of tubal ligation Family History Mother Diabetes HTN (hypertension) Father HTN (hypertension) Brother Colon cancer Social History Household Members: Significant Other Are you a primary pediatric critical care nurse to a significant other at home: No Do you presently have visiting nurse or other home services: No Alcohol intake: never Patient Tobacco Use Status: Never used Tobacco Review of Systems Const All systems reviewed & are unremarkable except as noted in HPI and below Reports no additional complaints Eyes Reports no additional complaints ENT Reports no additional complaints Card Reports no additional complaints Resp Reports no additional complaints GI Reports no additional complaints Reports as per HPI Musc Reports no additional complaints Skin/Breast Reports system reviewed and no additional complaints, except as documented Neuro Reports no additional complaints Psych Reports no additional complaints Endo Reports no additional complaints Adebayo/Lymph Reports no additional complaints Aller/Immun Reports no additional complaints Results AMB Urinalysis, Automated UA Leukoctes 0 Juan/uL Last Edit by Dylan Escobar CCM on 08/21/24 16:31 UA Nitrite Negative Last Edit by Dylan Escobar [facility] on 08/21/24 16:31 UA Urobilinogen 17 mg/dL Last Edit by Dylan Escobar [facility] on 08/21/24 16:31 UA Protein 0 mg/dL Last Edit by Dylan Escobar [facility] on 08/21/24 16:31 UA pH 7.0 Last Edit by Dylan Escobar [facility] on 08/21/24 16:31 UA Blood 0 Skinny/uL Last Edit by Dylan Escobar [facility] on 08/21/24 16:31 UA Specific [place] 1.015 Last Edit by Dylan Escobar [facility] on 08/21/24 16: 31 UA Ketone Negative Last Edit by Dylan Escobar [facility] on 08/21/24 16:31 UA Bilirubin 0 mg/dL Last Edit by Dylan Escobar [facility] on 08/21/24 16:31 UA Glucose 0 mg/dL Last Edit by Dylan Escobar [facility] on 08/21/24 16:31 Results Reviewed Results Reviewed: Laboratory Last Values Urine pH (Auto) 7.0 08/21/24 16:30 Specific [place] (Auto) 1.015 08/21/24 16:30 Urine Protein (Auto) 0 mg/dL 08/21/24 16:30 Glucose (UA)(Auto) 0 mg/dL 08/21/24 16:30 Urine Ketones (Auto) Negative 08/21/24 16:30 Urine Blood (Auto) 0 Skinny/uL 08/21/24 16:30 Urine Nitrite (Auto) Negative 08/21/24 16:30 Urine Bilirubin (Auto) 0 mg/dL 08/21/24 16:30 Urine Urobilinogen (Auto) 17 mg/dL 08/21/24 16:30 Leukocyte Esterase (Auto) 0 Juan/uL 08/21/24 16:30 Date of Service: 08/07/24 CLINICAL HISTORY: N20.0 - Calculus of kidney US Renal Comparison: None Findings: Right kidney normal size and echotexture, 10.6 cm length. Complex lower pole cyst measuring 17 mm. Left kidney normal size and echotexture, 10.0 cm length. Interpolar calculus measuring 3 mm No hydronephrosis of either kidney. Normal color Doppler IMPRESSION: 1. Nonobstructing left renal calculus. 2. Complex lower pole right renal cyst. This could be further assessed with renal protocol CT with and without intravenous contrast, if clinically indicated. Date of Service: 11/15/23 Procedure(s): US renal BI FINDINGS: RIGHT KIDNEY: 10.5 x 4.6 x 4.5 cm (SAG x AP x TRV). The kidney is normal in size, contour, and echogenicity. Renal cortical thickness is normal. No renal calculi or hydronephrosis. A benign minimally complex Bosniak class II, 2.3 cm renal cyst is noted which requires no additional imaging or follow up. No solid renal masses are seen. LEFT KIDNEY: 10.4 x 5.0 x 4.6 cm (SAG x AP x TRV). The kidney is normal in size, contour, and echogenicity. Renal cortical thickness is normal. There is a 7 mm echogenic focus at the lower pole of the left kidney with twinkle artifact consistent with a nonobstructing calculus. No focal parenchymal lesions or hydronephrosis. IMPRESSION: Nonobstructing 7 mm left lower pole renal calculus. 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 - Refer to nephrology for further evaluation of elevated urine calcium and oxalate levels. - Monitor renal cyst and kidney stone with follow-up ultrasound in nine months. - Follow up with nephrology to discuss potential dietary modifications and additional interventions for stone prevention. Orders: Orders AMB Urinalysis Automated 08/21/24 Z13.9 - Encounter for screening, unspecified Referrals Nephrology Referral N20.0 - Calculus of kidney, R82.992 - Hyperoxaluria, R82.994 - Hypercalciuria Medications: Refilled pyridoxine (vitamin B6) 100 mg PO DAILY 90 tabs 3RF 90 days Patient Instructions: The patient had an opportunity to ask questions regarding treatment plan. The patient expressed understanding and agreement with the above treatment plan. The patient is aware they should contact our office by phone for worsening of their current condition or the appearance of new symptoms. Compliance is encouraged with any medications and followup testing that is ordered. It is a privilege to be allowed the opportunity to participate in the urologic care of your patient. If you have any questions or concerns regarding treatment for the above conditions please do not hesitate to contact me. The office telephone contact is [phone]. This note is constructed in part using voice recognition software. While every effort has been made to ensure accuracy astronomy department chair errors may have been i ncluded. Yours sincerely, Jesús Bundy MD Scribe Plan - Not visible on output: Patient was informed and verbally consented to the use of an ambient scribe for clinic note documentation during this visit. Coding Level of Care Code Est Pt Level 4 (95771) Diagnoses Nephrolithiasis N20.0 Renal cyst N28.1 Hypercalciuria R82.994 Hyperoxaluria R82.992 Kidney stones, calcium oxalate N20.0
== END 2024-08-21 14:32 | disposition home or self-care (01) ==
LOC: HO.HUSH 12:40
PROVIDERS: PCP Internal Medicine; Visit Provider Urology
DX: Z13.9 Encounter for screening, unspecified (principal)
CPT/HCPCS: 99214

== ENCOUNTER → 2024-08-21 12:39 | Outpatient (BNVA) | payer OTHER, SELFPAY | PROVIDERS: PCP Internal Medicine; Visit Provider Urology | DX: N20.0 Calculus of kidney (principal) | CPT/HCPCS: 81003 ==

== ENCOUNTER 2024-09-17 11:38 | Outpatient (AMB) | payer OTHER, SELFPAY ==
--- NOTE | 2024-09-17 11:47 | HO.NEPHOV ---
Vital Signs 09/17/24 11:52 Height 4 ft 11 in Weight 156 lb 4 oz BMI 31.6 BP 110/80 Blood Pressure Location Lt brachial Position Sitting Intake Visit Reasons: INP:Hypercalciuria,Hyperoxaluria,Calculus of kidne Party Plan Sales Host/Hostess Required: Yes Party Plan Sales Host/Hostess Language: Cad Detailer Services: Party Plan Sales Host/Hostess Present Party Plan Sales Host/Hostess Name: Amandeep [id number] Information Interpreted: clinical only Accompanied by: Self / Same As Patient Allergies No Known Allergies Allergy (Verified 09/17/24 11:51) HPI Comments Details: I had the privilege of seeing Floresita who is a pleasant 53 year old Georgian speaking patient with a past medical history of nephrolithiasis, hypertension, and renal cysts. She has H/O multiple visits at [facility] for left-sided flank pain. CT of the abdomen and pelvis without contrast that was performed 03/27/24 at [place] showed a 6 mm stone in the distal left ureter with associated moderate hydroureteronephrosis with trace right medullary calcifications. There was a low-density lesion in the right kidney too small to characterize probably represents a cyst as well as punctate stones in the left kidney. She has H/O right ureteroscopy laser lithotripsy & ureteral stent followed by removal. She had a 24 hour urine which showed a urine volume of 2.2 liters. Her Urine citrate levels were 888. Her urine calcium and oxalate levels were elevated. She is on vitamin B6, which may aid in reducing urine oxalate levels. She denied urinary urgency, urinary frequency, incontinence, nocturia, hematuria, dysuria, foul smelling urine, changes to urinary stream, fever, and or chills. Her BP has been at goal.She has family H/O renal calculi. Her renal function has been normal. [facility] Medical History (Updated 09/21/24 @ 20:04 by Kashif Torrez MD) Retention, urine Nephrolithiasis Vitiligo Mild acid reflux HTN (hypertension) Renal cyst, acquired Surgical History Hx of colonoscopy History of lithotripsy History of hernia repair History of breast surgery History of tubal ligation Family History Mother Diabetes HTN (hypertension) Father HTN (hypertension) Brother Colon cancer Social History Household Members: Significant Other Are you a primary child care teacher to a significant other at home: No Do you presently have visiting nurse or other home services: No Alcohol intake: never Patient Tobacco Use Status: Never used Tobacco Review of Systems Const All systems reviewed & are unremarkable except as noted in HPI and below Physical Exam Vital Signs: Last Vital Signs BP 110/80 09/17/24 11:52 BMI result Body Mass Index 31.6 Const General: comfortable and no acute distress Orientation/consciousness: patient oriented x3 HEENT Head: Yes normocephalic Mouth: Normal oral and palatal mucosa present Eyes EOM: EOMs intact bilaterally Neck Neck: Yes supple Resp Auscultation: clear to auscultation bilaterally Cardio Jugular venous distension: no JVD Rate: regular rate GI Palpation (GI): Soft to palpation Auscultation: normal bowel sounds General: Yes no CVA tenderness Back/Spine/Pelvis Back: no CVA tenderness Skin General skin exam: no rashes or lesions noted Neuro General: patient oriented x3 and moves all extremities Extrem General: Yes no pedal edema Results Reviewed Nephrology Results: Sodium, (135-145) 146 mmol/L H 04/03/24 Potassium, (3.3-5.1) 3.5 mmol/L 04/03/24 Chloride, (96-108) 112 mmol/L H 04/03/24 Carbon Dioxide, (22-29) 26 mmol/L 04/03/24 BUN, (9-16) 16 mg/dL 04/03/24 Creatinine, (0.5-1.4) 0.63 mg/dL 04/03/24 Calcium, (8.4-10.2) 9.6 mg/dL 04/03/24 Renal US 08/07/24 Assessment & Plan Assessment & Plan (1) Nephrolithiasis: Code(s): N20.0 - Calculus of kidney Category: Medical (2) Renal cyst: Code(s): N28.1 - Cyst of kidney, acquired Category: Medical (3) HTN (hypertension): Code(s): I10 - Essential (primary) hypertension Category: Medical Qualifiers: Hypertension type: primary hypertension Qualified Code(s): I10 - Essential (primary) hypertension Plan She has H/O multiple renal calculi as well as trace right medullary calcifications. She has H/O right ureteroscopy laser lithotripsy & ureteral stent followed by removal. She had a 24 hour urine which showed a urine volume of 2.2 liters. Her Urine citrate levels were 888. Her urine calcium and oxalate levels were elevated. She is on vitamin B6, which may aid in reducing urine oxalate levels. She denied urinary urgency, urinary frequency, incontinence, nocturia, hematuria, dysuria, foul smelling urine, changes to urinary stream, fever, and or chills. Her BP has been at goal.She has family H/O renal calculi. Her renal function has been normal. She should be on a low sodium diet and cut back meat in the diet along with increase in fruits & vegetables. I started her on HCTZ 12.5 mg daily which I plan to increase in time, if her hemodynamics, electrolytes and renal function permit. Follow up labs ordered. Answered all questions and follow up appointment given Orders: Orders Creatinine 4 Weeks N20.0 - Calculus of kidney Electrolytes 4 Weeks N20.0 - Calculus of kidney Calcium 4 Weeks N20.0 - Calculus of kidney Blood Urea Nitrogen 4 Weeks N20.0 - Calculus of kidney Medications: New hydrochlorothiazide 12.5 mg PO DAILY 90 tabs 3RF 90 days Coding Level of Care Code New Pt Level 4 (95026) Diagnoses Nephrolithiasis N20.0 Renal cyst N28.1 Primary hypertension I10 Hypertension type: primary hypertension
[2024-09-17 11:52] VITALS: BP 110/80; BMI 31.6
--- OUTSIDE RECORDS SUMMARY | 2024-09-17 12:30 | XMS_ITS | Encounter Summary ---
Author Organization [employer] Address [address] [facility] 7 [place] [address] Care Team Providers Care Support Teacher Name Role Phone Cornell Fragoso MD Primary Care Prov ider Reason for Visit * Reason Onset Date Comments Nurse Triage 03/27/2024 Encounter Details Date Type Department Care Team ([facility] st Contact Info) Description 03/27/2024 Telephone [facility] MEDICINE [address] [place] [address] Cornell Fragoso MD [address] [place] [address] Nurse Triage Social History Tobacco Use Types [...] 9:26 AM EST Sent to team for [facility] ER status check PRN. * Telephone Encounter - Nayeli Moya RN - 03/27/2024 9:21 AM EST Call returned to Floresita Montes to triage below. No earth science faculty member needed as this check writer salesperson speaks Malian. Reports having epigastric abdominal pain x 1 week. Per pt worse today. Today onset of vomiting, has yellow green bile. No blood. Denies any diarrhea. Pt having cough congestion and ST 1 week ago. Denies any fever. Pt has not checked BP as kit is out of service. Pt advised of disposition agrees to seek [facility] ER now for evaluation. Pt [...] Description 11/16/2024 9:30 AM EDT Office Visit [facility] & PEDS [address] [place] [address] Cornell Fragoso MD [address] [place] [address] documented as of this encounter Visit Diagnoses Not on filedocumented in this encounter Additional Health Concerns Assessment Noted Time PHQ-9 Depression Total Score: 0 06/21/19 23 10:32 AM EDT documented as of this encounter Care Teams Support Teacher Relationship Specialty Start Date End Date Cornell Fragoso MD [address] [place] [address] PCP - General Internal Medicine 12/30/20 documented as of this encounter
--- OUTSIDE RECORDS SUMMARY | 2024-09-17 12:30 | XMS_ITS | Clinical Summary ---
Author Organization [facility] Address [address] [place] [address] Phone Care Team Providers Care Cartridge Loading Operator Name Role Phone Cornell Fragoso Primary Care Provide r Allergies No known active allergies Surgical History Surgery Date Site/Laterality Comments BREAST LUMPECTOMY PROCEDURE: HISTORICAL BREAST LUMPECTOMY INCISIONAL HERNIA REPAIR PROCEDURE: HI IMPLANT MESH OPN HERNIA RPR/DEBRIDEMENT CLOSURE TUBAL [...] 65 03/27/2024 4:15 PM EST Temperature 36.6 C (97.9 F) 03/27/2024 4:15 PM EST Respiratory Rate 16 03/27/2024 4:15 PM EST [...] Years (1 of 2 - PCV) 08/01/1990 Cervical Cancer Screening: Pap Smear 08/01/1992 COVID-19 Vaccine (3 - Pfizer risk series) 08/17/2020 07/20/2020, 06/29/2020 Colorectal Cancer Screening: Colonoscopy 01/28/2022 HIV Screening 01/28/2022 Hepatitis C Screening 01/28/2022 Social Influencers of Health Screening 01/28/2022 Depression Screening 02/26/2024 Influenza Vaccine (#1) 2024 , 12/29/2021, 03/22/2020, Additional history exists Hypertension/CHF/CAD Annual BMP Blood Test 03/27/2025 03/27/2024 DTaP,Tdap,and Td Vaccines (2 - Td or Tdap) 01/03/2026 01/04/2016 Cholesterol Screening (Lipid Panel) 02/15/2027 02/15/2022 Zoster Vaccines Completed 03/02/2022, 12/29/2021 HIB Vaccines Aged Out No longer eligi [...] age to complete this topic Meningococcal B Vaccine Aged Out No l onger eligible based on patient's age to complete this topic RSV Immunization Patients Under 20 months Aged Out No longer eligible based on patient's age to complete this topic Varicella Vaccines Aged Out No longer eligible based on patient's age to complete this topic Procedures Procedure Name Priority Date/Time Associated Diagnosis Comments COMPREHENSIVE METABOLIC PANEL STAT 03/27/2024 10:22 AM EST from Last 3 Months or Most Recently Relevant to Health Maintenance Results * (ABNORMAL) Comprehensive metabolic panel (03/27/2024 10:22 AM EST) Sodium 140 133 - 145 mmol/L LAB CHEMISTRY METHOD 03/27/2024 11:05 AM [facility] Potassium 4.1 3.5 - 5.5 mmol/L LAB CHEMISTRY METHOD 03/27/2024 11:05 AM [facility] Chloride 109 96 - 110 mmol/L LAB CHEMISTRY METHOD 03/27/2024 11:05 AM [facility] CO2 25 21 - 32 mmol/L LAB CHEMISTRY METHOD 03/27/2024 11:05 AM [facility] Anion Gap 6 3 - 11 LAB CHEMISTRY METHOD 03/27/2024 11:05 AM [facility] Glucose 160(H) 70 - 100 mg/dL LAB CHEMISTRY METHOD 03/27/2024 11:05 AM [facility] BUN 20 5 - 25 mg/dL LAB CHEMISTRY METHOD 03/27/2024 11:05 AM [facility] Creatinine 0.62 0.50 - 1.10 mg/dL LAB CHEMISTRY METHOD 03/27/2024 11:05 AM [facility] eGFR 107 >=60 mL/min/1. 73m2 LAB CHEMISTRY METHOD 03/27/2024 11:05 AM [facility] Comment:Calculation based on the Chronic Kidney Disease Epidemiology Collaboration (CKD-EPI) equation refit without adjustment for race. BUN/Creatinine Ratio 32.3 LAB CHEMISTRY METHOD 03/27/2024 11:05 AM [facility] Calcium 9.3 8.5 - 10.5 mg/dL LAB CHEMISTRY METHOD 03/27/2024 11:05 AM [facility] AST (SGOT) 20 10 - 42 unit/L LAB CHEMISTRY METHOD 03/27/2024 11:05 AM [facility] ALT (SGPT) 26 10 - 60 unit/L LAB CHEMISTRY METHOD 03/27/2024 11:05 AM [facility] Alkaline Phosphatase 97 42 - 121 unit/L LAB CHEMISTRY METHOD 03/27/2024 11:05 AM [facility] Total Protein 8.0 6.0 - 8.0 g/dL LAB CHEMISTRY METHOD 03/27/2024 11:05 AM [facility] Albumin 3.6 3.2 - 5.0 g/dL LAB CHEMISTRY METHOD 03/27/2024 11:05 AM [facility] Total Bilirubin 0.4 0.0 - 1.4 mg/dL LAB CHEMISTRY METHOD 03/27/2024 11:05 AM [facility] Blood Venous blood specimen / Unknown Venipuncture / Unknown 03/27/2024 10:22 AM EST 03/27/2024 10:29 AM EST us Morgan Rizzo MD LAB BLOOD ORDERABLES Alicia young Result [facility] [address] [place] [address], [place] [phone] from Last 3 Months or Most Recently Relevant to Health Maintenance Insurance [facility] [place] [id number] Care Teams Cartridge Loading Operator Relationship Specialty Start Date End Date Cornell Fragoso [address] [place], [place] PCP - General Internal Medicine 01/18/21
== END 2024-09-17 12:17 | disposition home or self-care (01) ==
LOC: HO.HKAS 11:39
PROVIDERS: PCP Internal Medicine; Referring Provider Urology; Visit Provider Internal Medicine Nephrology
DX: N20.0 Calculus of kidney (principal); N28.1 Cyst of kidney, acquired; I10 Essential (primary) hypertension
CPT/HCPCS: 99204

== ENCOUNTER 2024-10-16 10:30 | Outpatient (REF) | payer OTHER, SELFPAY ==
--- OUTSIDE RECORDS SUMMARY | 2024-10-16 10:33 | XMS_ITS | Clinical Summary ---
Author Organization [facility] Address [address] [place] [address] Phone Care Team Providers Care Client Server Developer Name Role Phone Cornell Fragoso Primary Care Provide r Allergies No known active allergies Surgical History Surgery Date Site/Laterality Comments BREAST LUMPECTOMY PROCEDURE: HISTORICAL BREAST LUMPECTOMY INCISIONAL HERNIA REPAIR PROCEDURE: [place] IMPLANT MESH OPN HERNIA RPR/DEBRIDEMENT CLOSURE TUBAL [...] mmol/L LAB CHEMISTRY METHOD 03/27/2024 11:05 AM [facility] Potassium 4.1 3.5 - 5.5 mmol/L LAB CHEMISTRY METHOD 03/27/2024 11:05 AM [facility] Chloride 109 96 - 110 mmol/L LAB CHEMISTRY METHOD 03/27/2024 11:05 AM [facility] CO2 25 21 - 32 mmol/L LAB CHEMISTRY METHOD 03/27/2024 11:05 AM [facility] Anion Gap 6 3 - 11 LAB CHEMISTRY METHOD 03/27/2024 11:05 AM [facility] Glucose 160(H) 70 - 100 mg/dL LAB CHEMISTRY METHOD 03/27/2024 11:05 AM [facility] BUN 20 5 - 25 mg/dL LAB CHEMISTRY METHOD 03/27/2024 11:05 AM [facility] Creatinine 0.62 0.50 - 1.10 mg/dL LAB CHEMISTRY METHOD 03/27/2024 11:05 AM [facility] eGFR 107 >=60 mL/min/1. 73m2 LAB CHEMISTRY METHOD 03/27/2024 11:05 AM [facility] Comment:Calculation based on the Chronic Kidney Disease Epidemiology Collaboration (CKD-EPI) equation refit without adjustment for race. BUN/Creatinine Ratio 32.3 LAB CHEMISTRY METHOD 03/27/2024 11:05 AM [facility] Calcium 9.3 8.5 - 10.5 mg/dL LAB CHEMISTRY METHOD 03/27/2024 11:05 AM [facility] AST (SGOT) 20 10 - 42 unit/L LAB CHEMISTRY METHOD 03/27/2024 11:05 AM [facility] ALT (SGPT) 26 10 - 60 unit/L LAB CHEMISTRY METHOD 03/27/2024 11:05 AM [facility] Alkaline Phosphatase 97 42 - 121 unit/L LAB CHEMISTRY METHOD 03/27/2024 11:05 AM [facility] Total Protein 8.0 6.0 - 8.0 g/dL LAB CHEMISTRY METHOD 03/27/2024 11:05 AM [facility] Albumin 3.6 3.2 - 5.0 g/dL LAB CHEMISTRY METHOD 03/27/2024 11:05 AM [facility] Total Bilirubin 0.4 0.0 - 1.4 mg/dL LAB CHEMISTRY METHOD 03/27/2024 11:05 AM [facility] Blood Venous blood specimen / Unknown Venipuncture / Unknown 03/27/2024 10:22 AM EST 03/27/2024 10:29 AM EST us Morgan Rizzo MD LAB BLOOD ORDERABLES Alicia young Result [facility] [address] [place] [address], [place] [phone] from Last 3 Months or Most Recently Relevant to Health Maintenance Insurance [facility] [place] [id number] Care Teams Client Server Developer Relationship Specialty Start Date End Date Cornell Fragoso [address] [place], [place] PCP - General Internal Medicine 01/18/21
--- OUTSIDE RECORDS SUMMARY | 2024-10-16 10:33 | XMS_ITS | Encounter Summary ---
Author Organization [employer] Address [address] [facility] 7 [place] [address] Care Team Providers Care Tire Bladder Maker Name Role Phone Cornell Fragoso MD Primary Care Prov ider Reason for Visit * Reason Onset Date Comments Nurse Triage 03/27/2024 Encounter Details Date Type Department Care Team ([facility] st Contact Info) Description 03/27/2024 Telephone [facility] [address] [place] [address] Cornell Fragoso MD [address] [place] [address] Nurse Triage Social History Tobacco Use Types [...] 9:26 AM EST Sent to team for [facility] ER status check PRN. * Telephone Encounter - Nayeli Moya RN - 03/27/2024 9:21 AM EST Call returned to Floresita Montes to triage below. 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 Reports having epigastric abdominal pain x 1 week. Per pt worse today. Today onset of vomiting, has yellow green bile. No blood. Denies any diarrhea. Pt having cough congestion and ST 1 week ago. Denies any fever. Pt has not checked BP as kit is out of service. Pt advised of disposition agrees to seek [facility] ER now for evaluation. Pt advised [...] Description 11/16/2024 9:30 AM EDT Office Visit [facility] [address] [place] [address] Cornell Fragoso MD [address] [place] [address] documented as of this encounter Visit Diagnoses Not on filedocumented in this encounter Additional Health Concerns Assessment Noted Time PHQ-9 Depression Total Score: 0 06/21/19 23 10:32 AM EDT documented as of this encounter Care Teams Tire Bladder Maker Relationship Specialty Start Date End Date Cornell Fragoso MD [address] [place] [address] PCP - General Internal Medicine 12/30/20 documented as of this encounter
[2024-10-16 16:25] LABS: Blood Urea Nitrogen 22 mg/dL (9-16); Calcium 9.2 mg/dL (8.4-10.2)
[2024-10-16 16:36] LABS: Alanine Aminotransferase 34 U/L (0-31); Albumin Level 4.3 g/dL (3.5-5.0); Alkaline Phosphatase 87 U/L (39-117); Anion Gap 12 (12-20); Aspartate Amino Transferase 29 U/L (5-31); Blood Urea Nitrogen 22 mg/dL (9-16); Calcium 9.3 mg/dL (8.4-10.2); Carbon Dioxide 24 mmol/L (22-29); Chloride 111 mmol/L (96-108); Cholesterol 224 mg/dL (<200); Estimated Glomerular Filt Rate > 60; HDL Cholesterol 57 mg/dL (>40); Potassium 3.5 mmol/L (3.3-5.1); Sodium 143 mmol/L (135-145); Total Protein 7.9 g/dL (6.5-8.0); Triglycerides 66 mg/dL (<150)
== END 2024-10-16 10:31 | disposition home or self-care (01) ==
LOC: CF 10:30
PROVIDERS: PCP Internal Medicine; Referring Provider Internal Medicine Nephrology; Visit Provider Internal Medicine
DX: I10 Essential (primary) hypertension (principal); N20.0 Calculus of kidney
CPT/HCPCS: 36415; 80053; 80061; 82310; 84520

== ENCOUNTER 2024-10-30 09:41 | Outpatient (AMB) | payer OTHER, SELFPAY ==
--- NOTE | 2024-10-30 09:52 | HO.NEPHOV_ITS ---
Vital Signs 10/30/24 09:55 Height 4 ft 11 in Weight 153 lb BMI 30.9 BP 112/70 Blood Pressure Location Lt brachial Position Sitting Intake Visit Reasons: 5wk f/u w/labs-LVM Building Code Inspector Required: Yes Building Code Inspector Language: Director Hr Communications Services: Building Code Inspector Present Building Code Inspector Name: Janine [id number] Information Interpreted: clinical only Accompanied by: Spouse Allergies No Known Allergies Allergy (Verified 10/30/24 09:54) HPI Comments Details: I had the privilege of seeing Floresita in follow up who is a pleasant 53 year old Romanian speaking patient with a past medical history of nephrolithiasis, hypertension, and renal cysts. She has H/O multiple visits at [facility] for left-sided flank pain. CT of the abdomen and pelvis without contrast that was performed 03/27/24 at [facility] showed a 6 mm stone in the distal left ureter with associated moderate hydroureteronephrosis with trace right medullary calcifications. There was a low-density lesion in the right kidney too small to characterize probably represents a cyst as well as punctate stones in the left kidney. She has H/O right ureteroscopy laser lithotripsy & ureteral stent followed by removal. She had a 24 hour urine which showed a urine volume of 2.2 liters. Her Urine citrate levels were 888. Her urine calcium and oxalate levels were elevated. She is on vitamin B6, which may aid in reducing urine oxalate levels. She denied urinary urgency, urinary frequency, incontinence, nocturia, hematuria, dysuria, foul smelling urine, changes to urinary stream, fever, and or chills. Her BP has been at goal.She has family H/O renal calculi. Her renal function has been normal. [facility] Medical History (Updated 09/21/24 @ 20:04 by Kashif Torrez MD) Retention, urine Nephrolithiasis Vitiligo Mild acid reflux HTN (hypertension) Renal cyst, acquired Surgical History Hx of colonoscopy History of lithotripsy History of hernia repair History of breast surgery History of tubal ligation Family History Mother Diabetes HTN (hypertension) Father HTN (hypertension) Brother Colon cancer Social History Household Members: Significant Other Are you a primary aged or disabled care worker to a significant other at home: No Do you presently have visiting nurse or other home services: No Alcohol intake: never Patient Tobacco Use Status: Never used Tobacco Review of Systems Const All systems reviewed & are unremarkable except as noted in HPI and below Physical Exam Vital Signs: Last Vital Signs BP 112/70 10/30/24 09:55 BMI result Body Mass Index 30.9 Const General: comfortable and no acute distress Orientation/consciousness: patient oriented x3 HEENT Head: Yes normocephalic Mouth: Normal oral and palatal mucosa present Eyes EOM: EOMs intact bilaterally Neck Neck: Yes supple Resp Auscultation: clear to auscultation bilaterally Cardio Jugular venous distension: no JVD Rate: regular rate GI Palpation (GI): Soft to palpation Auscultation: normal bowel sounds General: Yes no CVA tenderness Back/Spine/Pelvis Back: no CVA tenderness Skin General skin exam: no rashes or lesions noted Neuro General: patient oriented x3 and moves all extremities Extrem General: Yes no pedal edema Results Reviewed Nephrology Results: Sodium, (135-145) 143 mmol/L 10/16/24 Potassium, (3.3-5.1) 3.5 mmol/L 10/16/24 Chloride, (96-108) 111 mmol/L H 10/16/24 Carbon Dioxide, (22-29) 24 mmol/L 10/16/24 BUN, (9-16) 22 mg/dL H 10/16/24 Creatinine, (0.5-1.4) 0.61 mg/dL 10/16/24 Calcium, (8.4-10.2) 9.3 mg/dL 10/16/24 Renal US 08/07/24 Assessment & Plan Assessment & Plan (1) HTN (hypertension): Code(s): I10 - Essential (primary) hypertension Category: Medical Qualifiers: Hypertension type: primary hypertension Qualified Code(s): I10 - Esse ntial (primary) hypertension (2) Nephrolithiasis: Code(s): N20.0 - Calculus of kidney Category: Medical (3) Renal cyst: Code(s): N28.1 - Cyst of kidney, acquired Category: Medical Plan She has H/O multiple renal calculi as well as trace right medullary calcifications. She has H/O right ureteroscopy laser lithotripsy & ureteral stent followed by removal. She had a 24 hour urine which showed a urine volume of 2.2 liters. Her Urine citrate levels were 888. Her urine calcium and oxalate levels were elevated. She is on vitamin B6, which may aid in reducing urine oxalate levels. She denied urinary urgency, urinary frequency, incontinence, nocturia, hematuria, dysuria, foul smelling urine, changes to urinary stream, fever, and or chills. Her BP has been at goal.She has family H/O renal calculi. Her renal function has been normal. She should be on a low sodium diet and cut back meat in the diet along with increase in fruits & vegetables. She should continue HCTZ 25 mg daily. I also started her on K citrate twice daily. Follow up labs ordered. Answered all questions and follow up appointment given Orders: Orders Electrolytes 6 Weeks I10 - Essential (primary) hypertension, N20.0 - Calculus of kidney, N28.1 - Cyst of kidney, acquired Calcium 6 Weeks I10 - Essential (primary) hypertension, N20.0 - Calculus of kidney, N28.1 - Cyst of kidney, acquired Creatinine 6 Weeks I10 - Essential (primary) hypertension, N20.0 - Calculus of kidney, N28.1 - Cyst of kidney, acquired Blood Urea Nitrogen 6 Weeks I10 - Essential (primary) hypertension, N20.0 - Calculus of kidney, N28.1 - Cyst of kidney, acquired Medications: New potassium citrate ER 10 mEq PO BID 180 tabs 3RF 90 days Changed From hydrochlorothiazide 12.5 mg PO DAILY 90 days 90 tabs 3RF To hydrochlorothiazide 25 mg PO DAILY 90 tabs 3RF 90 days Coding Level of Care Code Est Pt Level 4 (69877) Diagnoses Primary hypertension I10 Hypertension type: primary hypertension Nephrolithiasis N20.0 Renal cyst N28.1
[2024-10-30 09:55] VITALS: BP 112/70; BMI 30.9
--- OUTSIDE RECORDS SUMMARY | 2024-10-30 10:29 | XMS_ITS | Clinical Summary ---
Author Organization [facility] Address [address] [place] [address] Phone Care Team Providers Care Actuarial Science Teacher Name Role Phone Cornell Fragoso Primary Care Provide r Allergies No known active allergies Surgical History Surgery Date Site/Laterality Comments BREAST LUMPECTOMY PROCEDURE: HISTORICAL BREAST LUMPECTOMY INCISIONAL HERNIA REPAIR PROCEDURE: [place] IMPLANT MESH OPN HERNIA RPR/DEBRIDEMENT CLOSURE TUBAL [...] mmol/L LAB CHEMISTRY METHOD 03/27/2024 11:[address] [facility] Potassium 4.1 3.5 - 5.5 mmol/L LAB CHEMISTRY METHOD 03/27/2024 11:[address] [facility] Chloride 109 96 - 110 mmol/L LAB CHEMISTRY METHOD 03/27/2024 11:[address] [facility] CO2 25 21 - 32 mmol/L LAB CHEMISTRY METHOD 03/27/2024 11:[address] [facility] Anion Gap 6 3 - 11 LAB CHEMISTRY METHOD 03/27/2024 11:[address] [facility] Glucose 160(H) 70 - 100 mg/dL LAB CHEMISTRY METHOD 03/27/2024 11:[address] [facility] BUN 20 5 - 25 mg/dL LAB CHEMISTRY METHOD 03/27/2024 11:[address] [facility] Creatinine 0.62 0.50 - 1.10 mg/dL LAB CHEMISTRY METHOD 03/27/2024 11:[address] [facility] eGFR 107 >=60 mL/min/1. 73m2 LAB CHEMISTRY METHOD 03/27/2024 11:[address] [facility] Comment:Calculation based on the Chronic Kidney Disease Epidemiology Collaboration (CKD-EPI) equation refit without adjustment for race. BUN/Creatinine Ratio 32.3 LAB CHEMISTRY METHOD 03/27/2024 11:[address] [facility] Calcium 9.3 8.5 - 10.5 mg/dL LAB CHEMISTRY METHOD 03/27/2024 11:[address] [facility] AST (SGOT) 20 10 - 42 unit/L LAB CHEMISTRY METHOD 03/27/2024 11:[address] [facility] ALT (SGPT) 26 10 - 60 unit/L LAB CHEMISTRY METHOD 03/27/2024 11:[address] [facility] Alkaline Phosphatase 97 42 - 121 unit/L LAB CHEMISTRY METHOD 03/27/2024 11:[address] [facility] Total Protein 8.0 6.0 - 8.0 g/dL LAB CHEMISTRY METHOD 03/27/2024 11:[address] [facility] Albumin 3.6 3.2 - 5.0 g/dL LAB CHEMISTRY METHOD 03/27/2024 11:[address] [facility] Total Bilirubin 0.4 0.0 - 1.4 mg/dL LAB CHEMISTRY METHOD 03/27/2024 11:[address] [facility] Blood Venous blood specimen / Unknown Venipuncture / Unknown 03/27/2024 10:22 AM EST 03/27/2024 10:29 AM EST us Morgan Rizzo MD LAB BLOOD ORDERABLES Alicia young Result [facility] [address] [place] [address], [place] [phone] from Last 3 Months or Most Recently Relevant to Health Maintenance Insurance [facility] [place] [id number] Care Teams Actuarial Science Teacher Relationship Specialty Start Date End Date Cornell Fragoso [address] [place], [place] PCP - General Internal Medicine 01/18/21
--- OUTSIDE RECORDS SUMMARY | 2024-10-30 10:29 | XMS_ITS | Clinical Summary ---
Author Organization [employer] Address [address] [facility] 7[address] [place] [address] Care Team Providers Care Sheep And Wheat Farmer Name Role Phone Cornell Fragoso MD Primary Care Prov ider Allergies No known active allergies Medications Blood Pressure kit 1 kit Once per day. 1 kit 5 Active topiramate (Topamax) 50 MG tablet Take 1 tablet (50 mg) by mouth Once per day. 60 tablet 3 5 Active phentermine 15 MG capsule TAKE 1 CAPSULE(15 MG) BY MOUTH BEFORE BREAKFAST 30 capsule 3 5 Active lisinopril 20 MG tabletIndications :Primary hypertension Take 1 tablet (20 mg) by mouth Once per day. 30 tablet 11 5 Active Active Problems Problem Noted Date Diagnosed Date Class 1 obesity due to exces s calories with serious comorbidity and body mass index (BMI) of 33.0 to 33.9 in adult 05/01/2024 Assessment & Plan (07/31/2024 10:44 AM EDT): Patient adressing her diet, exercising, has lost over 20lbs, continue current treatment and reevaluate in 3 months Assessment & Plan (05/01/2024 9:53 AM EST): Will provide phentermine and topamax, risk vs benefits discussed Nephrolithiasis 03/31/2024 Assessment & Plan (03/31/2024 10:04 PM EST): Told to remain well hydrated, will renew flomax, er precautions reviewed, ct scan showed a 7mm stone Primary hypertension 03/29/2022 Assessment & Plan (07/31/2024 10:43 AM EDT): Controlled, keep low sodium diet and exercise as tolerated, keep bp log, target <140/90, no changes will be made Assessment & Plan (05/01/2024 9:52 AM EST): Controlled, keep low sodium diet and exercise as tolerated, keep bp log, target <140/90, follow up in 3 months Assessment & Plan (03/31/2024 10:04 PM EST): [...] Encounters Date Type Department Care Team Description 10/16/2024 Orders Only GENERIC EXTERNAL DATA DEPARTMENT Provider, Generic External Data 08/07/[address] [facility] External Provider, [facility] 08/04/2024 Orders Only [facility] MED & PEDS [address] [place] [address] Cornell Fragoso MD 07/31/2024 10:15 AM EDT Telemedicine [facility] MED & PEDS [address] [place] [address] Cornell Fragoso MD Primary hypertension (Primary Dx); Class 1 obesity due to excess calories with serious comorbidity and body mass index (BMI) of 33.0 to 33.9 in adult 07/31/2024 Travel from Last 3 Months Immunizations Immunization Administration Dates Next Due Influenza Injectable Quadriv alant Preservative Free IIV4 MDCK 12/29/2021 Influenza injectable quadriv alent IIV4 with preservative 12/22/2018,11/11/2017 Influenza injectable quadrivalent preservative f ree 03/22/2020,12/18/2016 Influenza, seasonal, injectable, preservative fr ee 12/26/2023,12/25/2014 Tdap 01/04/2016 Zoster, Recombinant 03/02/2022,12/29/2021 Social History Tobacco Use Types Packs/Day Years Used Date Smoking Tobacco: Never Assessed Depression Answer Date Recorded Patient Health Questionnaire-9 Score 2 07/31/2024 Patient Health Questionnaire-9 Score 2 07/31/2024 Last PHQ-9: Questionnaire Data Not on file 0 07/31/2024 Housing Stability Answer Date Recorded What is [...] the past 12 months, has t he [employer], gas, oil or water [facility] threatened to shut off services in your home? No 12/25/2022 Depression Answer Date Recorded Patient Health Questionnaire-2 Score 2 07/31/2024 Comments Unknown Sex and Gender Information Value Date Recorded Sex Assigned at Female 12/25/2021 10:29 AM EDT Legal Sex Female 10:29 AM EDT Gender Identity Female 12/25/2021 10:29 AM EDT Sexual Orientation Straight 12/25/2021 10 :29 AM EDT Last Filed Vital Signs Vital Sign Reading Time Taken Comments Blood Pressure 114/78 07/31/2024 10:17 AM EDT Pulse 60 03/31/2024 2:12 PM EST Temperature 36.2 C (97.2 F) 03/31/2024 2:12 PM EST Respiratory Rate 20 03/31/2024 2:12 PM EST Oxygen Saturation 98% 03/31/2024 2:12 PM EST Inhaled Oxygen Concentration - - Weight 64.4 kg (142 lb) 07/31/2024 10:17 AM EDT Height 151.4 cm (4' 11.6 ) 03/31/2024 2:12 PM ES T Body Mass Index 28.11 03/31/2024 2:12 PM EST Plan of Treatment Upcoming Encounters Date Type Department Care Team (Late st Contact Info) Description 11/16/2024 9:30 AM EDT Office Visit [facility] MED & PEDS [address] [place], [place] [phone] Cornell Fragoso MD [address] [place], [place] [phone] Health Maintenance Due Date Last Done Comments CT Colonography 1971 FIT DNA/Cologuard 1971 FIT 1971 FOBT 1971 HIV Screening 1970 Sigmoidoscopy 1971 Alcohol/Substance Use Screening 1983 Tobacco Screening 1983 Hepatitis C Screening 08/01/1989 Hepatitis B Vaccines (1 of 3 - 19+ 3-dose series) 08/01/1990 Pap Smear 08/01/1992 Pneumococcal Vaccine: 50+ Years (1 of 1 - PCV) 08/01/2021 Colonoscopy 08/14/2022 08/14/2021 Colorectal Cancer Screening 08/14/2022 SDOH Screening 06/21/2023 06/20/2022 Cervical Cancer Screening 02/25/2024 HPV/Cotest 02/25/2024 02/24/2019 COVID-19 Vaccine (3 - 2024- season) 2024 07/20/2020, 06/29/2020 Influenza Vaccine (#1) 2024 , 12/29/2021, 03/22/2020, Additional history exists Disability Screening 04/25/2025 04/25/2024 Depression Screening 07/31/2025 07/31/2024, 08/01/19 25 DTaP/Tdap/Td Vaccines (2 - Td or Tdap) 01/03/2026 01/04/2016 Mammogram 08/04/2026 08/04/2024, 04/0 06/2023, 11/30/2022, Additional history exists Lipid Panel 10/16/2029 10/16/2024, 01/26, 12/30/2020 RSV Patients and Patients Aged 60 years or older (1 - 1-dose 75+ series) 08/01/2046 Zoster Vaccines Completed 03/02/2022, 12/29/2021 HIB Vaccines [...] Procedure Name Priority Date/Time Associated Diagnosis Comments CALCIUM Routine 10/16/2024 10:38 AM EDT UREA NITROGEN (BUN) Routine 10/16/2024 1 0:38 AM EDT LIPID PANEL, STANDARD Routine 10/16/2024 10:38 AM EDT Primary hypertension COMPREHENSIVE METABOLIC PANEL Routine 10/16/2024 10:38 AM EDT Primary hypertension US RENAL BI Routine 08/07/2024 8:55 PM EDT BI MAMMOGRAM SCREENING TOMOSYNTHESIS BILATERAL Routine 08/04/2024 8:45 AM EDT HM COLONOSCOPY Routine 08/14/2021 11:04 AM EDT ZZZ HISTORICAL HPV MRNA E6/E7 Routine 02/24/2019 8:47 AM EST from Last 3 Months or Most Recently Relevant to Health Maintenance Results * (ABNORMAL) BUN (Blood Urea Nitrogen) (10/16/2024 10:38 AM EDT) Urea Nitrogen (BUN) 22(H) 9 - 16 mg/dL [facility] 10/16/2024 10:3 8 AM EDT 10/16/2024 3:56 PM EDT Generic External Data Provider LAB BLOOD ORDERAB LES Final Result Performing Organization Address [facility]/ZIP Co de Phone Number [facility] [address] [place] [phone] * Calcium (10/16/2024 10:38 AM EDT) Calcium 9.2 8.4 - 10.2 mg/dL [facility] 10/16/2024 10:3 8 AM EDT 10/16/2024 3:56 PM EDT Generic External Data Provider LAB BLOOD ORDERAB LES Final Result Performing Organization Address City/[facility]/ZIP Co de Phone Number [facility] [address] [place] [address] [phone] * (ABNORMAL) Lipid Panel, Standard (10/16/2024 10:38 AM EDT) Triglycerides 66 <150 mg/dL [facility] Comment:Desirable Triglyceri de: less than 150 mg/dLBorderline High Triglyceride 150-199 mg/dLHigh Triglyceride: 200-499 mg/dLVery High Triglyceride: greater than or equal to 5OO mg/dL Cholesterol 224(H) <200 mg/dL [facility] Comment:Desirable Cholestero l: less than 200 mg/dLBorderline High Cholesterol: 200-239 mg/dLHigh Cholesterol: greater than 239 mg/dL LDL Cholesterol Calculated 154(H) <100 mg/dL [facility] Comment:Desirable LDL: less than 100 mg/dLNear Optimal/Above Optimal LDL: 110- 129 mg/dLBorderline High LDL: 130-159 mg/dLHigh LDL: 160-189 mg/dLVery High LDL: greater than or equal to 190 mg/dL HDL Cholesterol 57 >40 mg/dL [facility] Comment:Desirable HDL: great er than 40 mg/dL Note: This HDL assay may give artificially low results in patients with liver disease. Blood Venous blood specimen / Unknown 10/16/2024 10:38 AM EDT 10/16/2024 3:42 PM EDT us Cornell Gonzalez MD LAB BLOOD ORDERABL ES Final Result [facility] [address] [place] [address] [phone] * (ABNORMAL) Comprehensive Metabolic Panel (10/16/2024 10:38 AM EDT) Sodium 143 135 - 145 mmol/L [facility] Potassium 3.5 3.3 - 5.1 mmol/L [facility] Chloride 111(H) 96 - 108 mmol/L [facility] Carbon Dioxide 24 22 - 29 mmol/L [facility] Anion Gap 12 12 - [address] [facility] Urea Nitrogen (BUN) 22(H) 9 - 16 mg/dL [facility] Creatinine, Serum 0.61 0.5 - 1.4 mg/dL [facility] Estimated Glomerular Filt Rate >[address] [facility] Comment:Chronic Kidney Disea se: Estimated GFR < 60 mL/min/1.29v2Frapzt Kidney Disease: Estimated GFR < 15 mL/min/1.73m2 Glucose 81 60 - 115 mg/dL [facility] Calcium 9.3 8.4 - 10.2 mg/dL [facility] Bilirubin, Total 0.4 0.0 - 1.0 mg/dL [facility] Aspartate Amino Transferase 29 5 - 31 U/L [facility] Alanine Aminotransferase 34(H) 0 - 31 U/L [facility] Total Protein 7.9 6.5 - 8.0 g/dL [facility] Albumin Level 4.3 3.5 - 5.0 g/dL [facility] Alkaline Phosphatase 87 39 - 117 U/L [facility] Blood Venous blood specimen / Unknown 10/16/2024 10:38 AM EDT 10/16/2024 3:42 PM EDT Cornell Gonzalez MD LAB BLOOD ORDERABL ES Final Result Performing Organization Address City/State/[facility] Co de Phone Number [facility] [address] [place] [address] [phone] * US RENAL BI (08/07/2024 8:55 PM EDT) Anatomical Region Laterality Modality Abdomen Ultrasound 08/07/2024 8:55 PM EDT Narrative 08/07/2024 8:56 PM EDT [facility] Adult Primary Care [facility] [facility] [place] [address] Ultrasound Report Signed Patient: Floresita Landaverde MR#: [id number] : 1970 Acct:[id number] Age/Sex: 54 / F ADM Date: 08/07/24 Loc: .HMGCX Attending Dr: Lynette ARNDT Ordering Physician: Lnyette Tomas Date of Service: 08/07/24 Procedure(s): US renal BI Accession Number(s): [id number] cc: Cornell Fragoso MD; Lynette Tomas CLINICAL HISTORY: N20.0 - Calculus of kidney US Renal Comparison: None Findings: Right kidney normal size and echotexture, 10.6 cm length. Complex lower pole cyst measuring 17 mm. Left kidney normal size and echotexture, 10.0 cm length. Interpolar calculus measuring 3 mm No hydronephrosis of either kidney. Normal color Doppler IMPRESSION: 1. Nonobstructing left renal calculus. 2. Complex lower pole right renal cyst. This could be further assessed with renal protocol CT with and without intravenous contrast, if clinically indicated. This document has been electronically signed by: Kat Reis MD on 08/07/2024 20:55:06 Dictated By: Kat Reis MD Signed By: <Electronically signed by Kat Reis MD in OV> 08/07/242055 DD/ 54 TD/TT: 08/07/242054 Lacemaker: Procedure Note Donotuseinterpreter, Image - 08/07/2024 [facility] Primary Care [address] [place] [address] [place] [address] Ultrasound Report Signed Patient: Floresita Landaverde#: [id number] : 1970Acct:[id number] Age/Sex: 54 / FADM Date: 08/07/24 Loc: [facility] Attending Dr: Lynette ARNDT Ordering Physician: Lynette Tomas Date of Service: 08/07/24 Procedure(s): US renal BI Accession Number(s): [id number] cc: Cornell Fragoso MD; Lynette Tomas CATTLE BROKERKT CLINICAL HISTORY: N20.0 - Calculus of kidney US Renal Comparison: None Findings: Right kidney normal size and echotexture, 10.6 cm length. Complex lower pole cyst measuring 17 mm. Left kidney normal size and echotexture, 10.0 cm length. Interpolar calculus measuring 3 mm No hydronephrosis of either kidney. Normal color Doppler IMPRESSION: 1. Nonobstructing left renal calculus. 2. Complex lower pole right renal cyst. This could be further assessed with renal protocol CT with and without intravenous contrast, if clinically indicated. This document has been electronically signed by: Kat Reis MD on 08/07/2024 20:55:06 Dictated By: Kat Reis MD Signed By: <Electronically signed by Kat Reis MD in OV> 08/07/242055 DD/ 54 TD/TT: 08/07/242054 Lacemaker: us [facility] External Provider IMG US PROCEDURES Final Result * BI Mammogram Screening Tomosynthesis Bilateral (08/04/2024 8:45 AM EDT) Anatomical Region Laterality Modality Breast Bilateral Mammography 08/04/2024 8:45 AM EDT Narrative 08/11/2024 10:35 AM EDT [address] [place] [address] Mammography Report Signed Patient: Floresita Landaverde MR#: [id number] : 1970 Acct:[id number] Age/Sex: 54 / F ADM Date: 08/04/24 Loc: HO.MAMMO Attending Dr: Cornell Gonzalez MD Ordering Physician: Cornell Fragoso MD Res ults: 2Benign Findings Date of Service: 08/04/24 Follow Up: 1 Year From Orig ina Mammogram Procedure(s): MM tomosynthesis screening BI Accession Number(s): [id number] cc: Cornell Fragoso MD EXAMINATION: MM SCREENING DIGITAL BREAST TOMOSYNTHESIS, BILATERAL CLINICAL INFORMATION: Screening. Asymptomatic. COMPARISON: Mammography: Comparison is made with available priors TECHNIQUE: Digital breast mammography with tomosynthesis is performed in both the craniocaudal and mediolateral oblique views along with computer-aided detection (CAD). FINDINGS: The breasts are heterogeneously dense, which may obscure small masses (ACR BI-RADS breast composition Category c). Right marker clip. There are no significant masses, abnormal calcifications, or other abnormalities. MM/MM tomosynthesis screening BI IMPRESSION: No mammographic evidence of malignancy. ASSESSMENT: BI-RADS BI-RADS 2 - Benign Findings RECOMMENDATION: Routine annual mammography screening. 1 year F/U This examination should not preclude the clinical evaluation of a suspicious palpable abnormality. This patient's information was entered into a reminder system with a target due date for their next mammogram. Electronically signed by: Francia Monteiro DO 08/11/2024 10:32 AM EDT Dictated By: Francia Monteiro DO Signed By: <Electronically signed by Francia Monteiro DO in OV> 08/11/24 1032 DD/ 0845 TD/TT: 08/04/24 0901 Lacemaker: Procedure Note Donireneinterpreter, Image - [facility] [address] [place] [address] Mammography Report Signed Patient: Hortensia Landaverde#: [id number] : 1970Acct:[id number] Age/Sex: 54 / FADM Date: 08/04/24 Loc: HO.MAMMO Attending Dr: Cornell Gonzalez MD Ordering Physician: Cornell Fragoso ults: 2Benign Findings Date of Service: 08/04/24Follow Up: 1 Year From Orig inal Mammogram Procedure(s): MM tomosynthesis screening BI Accession Number(s): [id number] cc: Cornell Fragoso MD EXAMINATION: MM SCREENING DIGITAL BREAST TOMOSYNTHESIS, BILATERAL CLINICAL INFORMATION: Screening. Asymptomatic. COMPARISON: Mammography: Comparison is made with available priors TECHNIQUE: Digital breast mammography with tomosynthesis is performed in both the craniocaudal and mediolateral oblique views along with computer-aided detection (CAD). FINDINGS: The breasts are heterogeneously dense, which may obscure small masses (ACR BI-RADS breast composition Category c). Right marker clip. There are no significant masses, abnormal calcifications, or other abnormalities. MM/MM tomosynthesis screening BI IMPRESSION: No mammographic evidence of malignancy. ASSESSMENT: BI-RADS BI-RADS 2 - Benign Findings RECOMMENDATION: Routine annual mammography screening. 1 year F/U This examination should not preclude the clinical evaluation of a suspicious palpable abnormality. This patient's information was entered into a reminder system with a target due date for their next mammogram. Electronically signed by: Francia Monteiro DO 08/11/2024 10:32 AM EDT Dictated By: Francia Monteiro DO Signed By: <Electronically signed by Francia Monteiro DO in OV> 08/11/24 1032 DD/ 0845 TD/TT: 08/04/24 0901 Lacemaker: us Cornell Gonzalez MD IMG BI PROCEDURES Final Result * Hm Colonoscopy (08/14/2021 11:04 AM EDT) us Historical Provider HEALTH MAINTENANCE Final Result * HPV mRNA E6/E7 (02/24/2019 8:47 AM EST) HPV mRNA E6/E7 Not Detected NOT DETECTED [facility] Comment: This test was performed using the APTIMA(R) HPV Assay ([employer] This assay detects E6/E7 viral messenger RNA (mRNA) from 14 high-risk HPV types (16,18,31,33,35,39,45,51, 52,56,58,59,66,68). For additional information please refer to: http://education.Linekong/faq/LTX948g9 (This link is being provided for informational/ educational purposes only.) The analytical performance characteristics of this assay have been determined by [employer] [place], [place]. The modifications have not been cleared or approved by the FDA. This assay has been validated pursuant to the CLIA regulations and is used for clinical purposes. Test Performed by [facility], [employer] [facility], [address] [place] [address] Christopher Hidalgo M.D., Ph.D., Director of Laboratories , CLIA [id number] Please note: Effective 11/07/2015, HPV testing will be performed using [employer]'s APTIMA test which targets mRNA. Detecting mRNA instead of DNA, as in older methods, offers significant improvements in specificity. 02/24/2019 8:47 AM EST us Kristin Schaefer CNM HISTORICAL/NON ORDERABLE LABS Final Result [facility] [address] from Last 3 Months or Most Recently Relevant to Health Maintenance Insurance [facility] NAVIGATE Care Teams Sheep And Wheat Farmer Relationship Specialty Start Date End Date Cornell Fragoso MD [address] [place] [phone] PCP - General Internal Medicine 12/30/20
--- OUTSIDE RECORDS SUMMARY | 2024-10-30 10:29 | XMS_ITS | Encounter Summary ---
Author Organization Contents [facility] Address [address] [place] [phone] Care Team Providers Care Sheet Metal Duct Installer Helper Name Role Phone Cornell Fragoso MD Primary Care Prov ider Encounter Details Date Type Department Care Team (Late Contact Info) Description 02/21/2022 Orders Only [facility] MEDICINE [address] [place], [place] [phone] Cornell Fragoso MD [address] [place] [address] Social History Tobacco Use Types Packs/Day Years [...] Department Care Team (Late Contact Info) Description 11/16/2024 9:30 AM EDT Office Visit [facility] MED & PEDS [address] [place], [place] [phone] Cornell Fragoso MD [address] [place] [address] documented as of this encounter Visit Diagnoses Not on filedocumented in this encounter Care Teams Sheet Metal Duct Installer Helper Relationship Specialty Start Date End Date Cornell Fragoso MD [address] [place] [phone] PCP - General Internal Medicine 12/30/20 documented as of this encounter
--- OUTSIDE RECORDS SUMMARY | 2024-10-30 10:29 | XMS_ITS | Encounter Summary ---
Author Organization [employer] Address [address] [place] [address] Care Team Providers Care Contract Modeler Name Role Phone Cornell Fragoso MD Primary Care Prov ider Reason for Visit * Reason Onset Date Comments Nurse Triage 03/27/2024 Encounter Details Date Type Department Care Team ([facility] st Contact Info) Description 03/27/2024 Telephone [facility] MEDICINE [address] [place] [address] Cornell Fragoso MD [address] [place] [phone] Nurse Triage Social History Tobacco Use Types [...] 9:26 AM EST Sent to team for [facility] ER status check PRN. * Telephone Encounter - Nayeli Moya RN - 03/27/2024 9:21 AM EST Call returned to Floresita Montes to triage below. No network operations manager needed as this casualty underwriter speaks Latvian. Reports having epigastric abdominal pain x 1 week. Per pt worse today. Today onset of vomiting, has yellow green bile. No blood. Denies any diarrhea. Pt having cough congestion and ST 1 week ago. Denies any fever. Pt has not checked BP as kit is out of service. Pt advised of disposition agrees to seek [facility] ER now for evaluation. Pt [...] Description 11/16/2024 9:30 AM EDT Office Visit [facility] MED & PEDS [address] [place] [address] Cornell Fragoso MD [address] [place] [address] documented as of this encounter Visit Diagnoses Not on filedocumented in this encounter Additional Health Concerns Assessment Noted Time PHQ-9 Depression Total Score: 0 06/21/19 23 10:32 AM EDT documented as of this encounter Care Teams Contract Modeler Relationship Specialty Start Date End Date Cornell Fragoso MD [address] [place] [address] PCP - General Internal Medicine 12/30/20 documented as of this encounter
--- OUTSIDE RECORDS SUMMARY | 2024-10-30 10:29 | XMS_ITS | Encounter Summary ---
Author Organization [employer] Address [address] [facility] [address] [place] [address] Care Team Providers Care Parachute Packer Name Role Phone Cornell Fragoso MD Primary Care Prov ider Encounter Details Date Type Department Care Team (Late st Contact Info) Description 06/11/2023 Orders Only [facility] MEDICINE [address] [place] [address] ProviderKrista MD Social History Tobacco Use Types [...] Upcoming Encounters Date Type Department Care Team ([facility] st Contact Info) Description 11/16/2024 9:30 AM EDT Office Visit [facility] MED & PEDS [address] [place] [address] Cornell Fragoso MD [address] [place] [address] documented as of this encounter Procedures Procedure [...] documented as of this encounter Care Teams Parachute Packer Relationship Specialty Start Date End Date Cornell Fragoso MD [address] [place] [address] PCP - General Internal Medicine 12/30/20 documented as of this encounter
--- OUTSIDE RECORDS SUMMARY | 2024-10-30 10:29 | XMS_ITS | Encounter Summary ---
Author Organization [employer] Address [address] [facility] 7 [place] [address] Care Team Providers Care Willow Analyst Name Role Phone Cornell Fragoso MD Primary Care Prov ider Reason for Visit * Reason Comments Med Refill Encounter Details Date Type Department Care Team ([facility] st Contact Info) Description 01/30/2024 Refill C [facility]S [address] [place], [place] [phone] Cornell Fragoso MD [address] [place] [address] Primary hypertension Social History Tobacco Use Types [...] t he electric, gas, oil or water [employer] threatened to shut off services in your [...] [facility] MED & PEDS [address] [place] [address] Cornell Fragoso MD [address] [place] [address] documented as of this encounter Visit Diagnoses Diagnosis Primary hypertension Unspecified essential hypertension documented in this encounter Additional Health Concerns Assessment Noted Time PHQ-9 Depression Total Score: 0 06/21/19 23 10:32 AM EDT documented as of this encounter Care Teams Willow Analyst Relationship Specialty Start Date End Date Cornell Fragoso MD [address] [place] [address] PCP - General Internal Medicine 12/30/20 documented as of this encounter
== END 2024-10-30 10:10 | disposition home or self-care (01) ==
LOC: HO.HKA 09:41
PROVIDERS: PCP Internal Medicine; Visit Provider Internal Medicine Nephrology
DX: I10 Essential (primary) hypertension (principal); N20.0 Calculus of kidney; N28.1 Cyst of kidney, acquired
CPT/HCPCS: 99214

== ENCOUNTER → 2024-10-30 09:41 | Outpatient (BNVA) | payer OTHER, SELFPAY | PROVIDERS: PCP Internal Medicine; Visit Provider Internal Medicine Nephrology | DX: I10 Essential (primary) hypertension (principal); N20.0 Calculus of kidney; N28.1 Cyst of kidney, acquired; Z13.89 Encounter for screening for other disorder ==

== ENCOUNTER 2024-12-18 08:34 | Outpatient (REF) | payer OTHER, SELFPAY ==
--- OUTSIDE RECORDS SUMMARY | 2024-12-18 09:07 | XMS_ITS | Encounter Summary ---
Author Organization [facility] Address [address] [place] [address] Care Team Providers Care Supervising Editor News Reel Name Role Phone Cornell Fragoso MD Primary Care Prov ider Encounter Details Date Type Department Care Team (Late Contact Info) Description 02/21/2022 Orders Only [facility] MEDICINE [address] [place], [place] [phone] Conrell Fragoso MD [address] [place] [address] Social History Tobacco Use Types Packs/Day Years [...] Department Care Team (Late Contact Info) Description 02/15/2025 1:15 PM EST Telemedicine [facility] CHC MED & PEDS [address] [place], [place] [phone] Cornell Fragoso MD [address] [place] [address] documented as of this encounter Visit Diagnoses Not on filedocumented in this encounter Care Teams Supervising Editor News Reel Relationship Specialty Start Date End Date Cornell Fragoso MD [address] [place] [address] PCP - General Internal Medicine 12/30/20 documented as of this encounter
--- OUTSIDE RECORDS SUMMARY | 2024-12-18 09:07 | XMS_ITS | Encounter Summary ---
Author Organization [employer] Address [address] [place] [address] 7 [place] [address] Care Team Providers Care Telecommunications Officer Name Role Phone Cornell Fragoso MD Primary Care Prov ider Reason for Visit * Reason Comments Med Refill Encounter Details Date Type Department Care Team ([facility] Contact Info) Description 01/30/2024 Refill [facility] CHC MED & PEDS [address] [place], [place] [phone] Cornell Fragoso MD [address] [place] [address] Primary hypertension Social History Tobacco Use Types [...] Care Team (Late st Contact Info) Description 02/15/2025 1:15 PM EST Telemedicine [facility] MED & PEDS [address] [place] [address] Cornell Fragoso MD [address] [place] [address] documented as of this encounter Visit Diagnoses Diagnosis Primary hypertension Unspecified essential hypertension documented in this encounter Additional Health Concerns Assessment Noted Time PHQ-9 Depression Total Score: 0 06/21/19 23 10:32 AM EDT documented as of this encounter Care Teams Telecommunications Officer Relationship Specialty Start Date End Date Cornell Fragoso MD [address] [place] [address] PCP - General Internal Medicine 12/30/20 documented as of this encounter
--- OUTSIDE RECORDS SUMMARY | 2024-12-18 09:07 | XMS_ITS | Clinical Summary ---
Author Organization [facility] Address [address] [place] [address] Phone Care Team Providers Care Group Dynamics Instructor Name Role Phone Cornell Fragoso Primary Care Provide r Allergies No known active allergies Surgical History Surgery Date Site/Laterality Comments BREAST LUMPECTOMY PROCEDURE: HISTORICAL BREAST LUMPECTOMY INCISIONAL HERNIA REPAIR PROCEDURE: [place] IMPLANT MESH OPN HERNIA RPR/DEBRIDEMENT CLOSURE TUBAL [...] Last Done Comments Breast Cancer Screening 1971 Colorectal Cancer Screening: Colonoscopy 1971 Hepatitis B Vaccines (1 of 3 - 19+ 3-dose series) 08/01/1990 Pneumococcal Vaccine: 50+ Years (1 of 2 - PCV) 08/01/1990 Cervical Cancer Screening: Pap Smear 08/01/1992 COVID-19 Vaccine (3 - Pfizer risk series) 08/17/2020 07/20/2020, 06/29/2020 HIV Screening 01/28/2022 Hepatitis C Screening 01/28/2022 Social Influencers of Health Screening 01/28/2022 Depression Screening 02/26/2024 Influenza Vaccine (#1) 2024 , 12/29/2021, 03/22/2020, Additional history exists Hypertension/CHF/CAD Annual BMP Blood Test 03/27/2025 03/27/2024 DTaP,Tdap,and Td Vaccines (2 - Td or Tdap) 01/03/2026 01/04/2016 Cholesterol Screening (Lipid Panel) 02/15/2027 02/15/2022 RSV Immunization Adult Patients (1 - 1-dose 75+ series) 08/01/2046 Zoster [...] mmol/L LAB CHEMISTRY METHOD 03/27/2024 11:05 AM [facility] Potassium 4.1 3.5 - 5.5 mmol/L LAB CHEMISTRY METHOD 03/27/2024 11:05 AM [facility] Chloride 109 96 - 110 mmol/L LAB CHEMISTRY METHOD 03/27/2024 11:05 AM [facility] CO2 25 21 - 32 mmol/L LAB CHEMISTRY METHOD 03/27/2024 11:05 AM [facility] Anion Gap 6 3 - 11 LAB CHEMISTRY METHOD 03/27/2024 11:05 AM [facility] Glucose 160(H) 70 - 100 mg/dL LAB CHEMISTRY METHOD 03/27/2024 11:05 AM [facility] BUN 20 5 - 25 mg/dL LAB CHEMISTRY METHOD 03/27/2024 11:05 AM [facility] Creatinine 0.62 0.50 - 1.10 mg/dL LAB CHEMISTRY METHOD 03/27/2024 11:05 AM [facility] eGFR 107 >=60 mL/min/1. 73m2 LAB CHEMISTRY METHOD 03/27/2024 11:05 AM [facility] Comment:Calculation based on the Chronic Kidney Disease Epidemiology Collaboration (CKD-EPI) equation refit without adjustment for race. BUN/Creatinine Ratio 32.3 LAB CHEMISTRY METHOD 03/27/2024 11:05 AM [facility] Calcium 9.3 8.5 - 10.5 mg/dL LAB CHEMISTRY METHOD 03/27/2024 11:05 AM [facility] AST (SGOT) 20 10 - 42 unit/L LAB CHEMISTRY METHOD 03/27/2024 11:05 AM [facility] ALT (SGPT) 26 10 - 60 unit/L LAB CHEMISTRY METHOD 03/27/2024 11:05 AM [facility] Alkaline Phosphatase 97 42 - 121 unit/L LAB CHEMISTRY METHOD 03/27/2024 11:05 AM [facility] Total Protein 8.0 6.0 - 8.0 g/dL LAB CHEMISTRY METHOD 03/27/2024 11:05 AM [facility] Albumin 3.6 3.2 - 5.0 g/dL LAB CHEMISTRY METHOD 03/27/2024 11:05 AM [facility] Total Bilirubin 0.4 0.0 - 1.4 mg/dL LAB CHEMISTRY METHOD 03/27/2024 11:05 AM [facility] Blood Venous blood specimen / Unknown Venipuncture / Unknown 03/27/2024 10:22 AM EST 03/27/2024 10:29 AM EST us Morgan Rizzo MD LAB BLOOD ORDERABLES Alicia l Result [facility] [address] [place] [address], [place] [phone] from Last 3 Months or Most Recently Relevant to Health Maintenance Insurance [facility] [place] [id number] Care Teams Group Dynamics Instructor Relationship Specialty Start Date End Date Cornell Fragoso [address] [place] [address] PCP - General Internal Medicine 01/18/21
--- OUTSIDE RECORDS SUMMARY | 2024-12-18 09:07 | XMS_ITS | Encounter Summary ---
Author Organization [employer] Address [address] [facility] [address]t [place] [address] Care Team Providers Care Cylinder Press Feeder Name Role Phone Cornell Fragoso MD Primary Care Prov ider Encounter Details Date Type Department Care Team ([facility] st Contact Info) Description 06/11/2023 Orders Only [facility] MEDICINE [address] [place], [place] [phone] Provider, MD Krista Social History Tobacco Use Types Packs/Day Years [...] Upcoming Encounters Date Type Department Care Team ([facility] st Contact Info) Description 02/15/2025 1:15 PM EST Telemedicine [facility] CHC MED & PEDS [address] [place] [address] Cornell Fragoso MD [address] [place] [address] documented as of this encounter Procedures Procedure [...] documented as of this encounter Care Teams Cylinder Press Feeder Relationship Specialty Start Date End Date Cornell Fragoso MD [address] [place] [address] PCP - General Internal Medicine 12/30/20 documented as of this encounter
--- OUTSIDE RECORDS SUMMARY | 2024-12-18 09:07 | XMS_ITS | Encounter Summary ---
Author Organization [employer] Address [address] [address] Care Team Providers Care Screw Eye Assembler Name Role Phone Cornell Fragoso MD Primary Care Prov ider Reason for Visit * Reason Onset Date Comments Nurse Triage 03/27/2024 Encounter Details Date Type Department Care Team ([facility] st Contact Info) Description 03/27/2024 Telephone [facility] MEDICINE [address] [place] [address] Cornell Fragoso MD [address] [place] [address] Nurse Triage Social History Tobacco Use Types [...] 9:26 AM EST Sent to team for [facility] ER status check PRN. * Telephone Encounter - Nayeli Moya RN - 03/27/2024 9:21 AM EST Call returned to Floresita Montes to triage below. 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 Reports having epigastric abdominal pain x 1 week. Per pt worse today. Today onset of vomiting, has yellow green bile. No blood. Denies any diarrhea. Pt having cough congestion and ST 1 week ago. Denies any fever. Pt has not checked BP as kit is out of service. Pt advised of disposition agrees to seek [facility] ER now for evaluation. Pt [...] 02/15/2025 1:15 PM EST Telemedicine [facility] MED & PEDS [address] [place] [address] Cornell Fragoso MD [address] [place] [address] documented as of this encounter Visit Diagnoses Not on filedocumented in this encounter Additional Health Concerns Assessment Noted Time PHQ-9 Depression Total Score: 0 06/21/19 23 10:32 AM EDT documented as of this encounter Care Teams Screw Eye Assembler Relationship Specialty Start Date End Date Cornell Fragoso MD [address] [place] [address] PCP - General Internal Medicine 12/30/20 documented as of this encounter
--- OUTSIDE RECORDS SUMMARY | 2024-12-18 09:07 | XMS_ITS | Clinical Summary ---
Author Organization [facility] [employer] Address [address] [facility] 7t [place] [address] Care Team Providers Care Pricing Supervisor Name Role Phone Cornell Fragoso MD Primary [...] per day. 30 tablet 11 5 Active Diclofenac Sodium (Voltaren Arthritis Pain) 1 % gel Apply 2 g topically 2 times daily. 350 g 1 5 Active Active Problems Problem Noted Date Diagnosed Date Screening for colon cancer 11/18/2024 Assessment & Plan (11/18/2024 5:25 PM EDT): Done 2022 at [place] will task [place] to update chart Chronic pain of left knee 11/18/2024 Assessment & Plan (11/18/2024 5:33 PM EDT): Will order left knee xray and will refer to PT, call back if not improving Class 1 obesity due to exces s [...] stone Primary hypertension 03/29/2022 Assessment & Plan (11/18/2024 5:27 PM EDT): Controlled, keep low sodium diet and exercise as tolerated, keep blood pressure log, target<140/90 Assessment & Plan (07/31/2024 10:43 AM EDT): [...] Encounters Date Type Department Care Team Description 11/16/2024 9:30 AM EDT Office Visit [facility] MED & PEDS [address] [place] [address] Cornell Fragoso MD Chronic pain of left knee (Primary Dx); Screening for colon cancer; Primary hypertension 11/16/2024 Travel 11/13/2024 Telephone [facility] MED & PEDS [address] [place] [address] Cornell Fragoso MD CHART PREP 10/16/2024 Orders Only GENERIC EXTERNAL DATA DEPARTMENT Provider, Generic External Data from Last 3 Months Immunizations Immunization Administration [...] housing situation today? I have shelli perez 11/16/[address] you li ve. Do you have problems with any of the following? None of the above 11/16/2024 Food Insecurity Answer Date Recorded Within the past 12 months, y ou worried that your food would run out before you got money to buy more: Never True 11/16/2024 Within the past 12 months,th e food you bought just didn't last and you didn't have enough money to get more: Never True Transportation Answer Date Recorded In the past 12 months, has l ack of transportation kept you from medical appts, meetings, work or from getting things needed for daily living? No 11/16/2024 Utilities Answer Date Recorded In the past 12 months, has t he electric, gas, oil or water company threatened to shut off services in your home? No 11/16/2024 Depression Answer Date Recorded Patient Health Questionnaire-2 Score 2 07/31/2024 Internet Access Answer Date Recorded Internet Access Q1 Yes 11/16/2024 Internet Access Q2 Not on file 11/16/2024 Comments Unknown Sex and Gender Information Value Date Recorded Sex Assigned at Female 12/25/2021 10:29 AM EDT Legal Sex Female 10:29 AM EDT Gender Identity Female 12/25/2021 10:29 AM EDT Sexual Orientation Straight 12/25/2021 10 :29 AM EDT Last Filed Vital Signs Vital Sign Reading Time Taken Comments Blood Pressure 133/75 11/16/2024 9:50 AM EDT Pulse 60 11/16/2024 9:50 AM EDT Temperature 36.6 C (97.9 F) 11/16/2024 9:50 AM EDT Respiratory Rate 20 11/16/2024 9:50 AM EDT Oxygen Saturation 98% 03/31/2024 2:12 PM EST Inhaled Oxygen Concentration - - Weight 68.5 kg (151 lb) 11/16/2024 9:50 AM EDT Height 149.9 cm (4' 11 ) 11/16/2024 9:50 AM EDT Body Mass Index 30.5 11/16/2024 9:50 AM EDT Plan of Treatment Upcoming Encounters Date Type Department Care Team ([facility] st Contact Info) Description 02/15/2025 1:15 PM EST Telemedicine [facility] CHC MED & PEDS [address] [place] [address] Cornell Fragoso MD [address] [place] [address] Health Maintenance Due Date Last Done Comments CT Colonography 1971 FIT DNA/Cologuard 1971 FIT 1971 FOBT 1971 HIV Screening 1971 Sigmoidoscopy 1971 Tobacco Screening 1983 Hepatitis C Screening 08/01/1989 Hepatitis B Vaccines (1 of 3 - 19+ 3-dose series) 08/01/1990 Pap Smear 08/01/1992 Pneumococcal Vaccine: 50+ Years (1 of 1 - PCV) 08/01/2021 Colonoscopy 08/14/2022 08/14/2021 Colorectal Cancer Screening 08/14/2022 Cervical Cancer Screening 02/25/2024 HPV/Cotest 02/25/2024 02/24/2019 COVID-19 Vaccine ( - season) 2024 07/20/2020, 06/29/2020 Influenza Vaccine (#1) 2024 , 12/29/2021, 03/22/2020, Additional history exists Depression Screening 07/31/2025 07/31/2024, 08/01/19 25 Alcohol/Substance Use Screening 11/16/2025 11/16/2024 Disability Screening 11/16/2025 11/16/2024 SDOH Screening 11/16/2025 11/16/2024 DTaP/Tdap/Td Vaccines (2 - Td or Tdap) [...] Routine 10/16/2024 10:38 AM EDT Primary hypertension BI MAMMOGRAM SCREENING TOMOSYNTHESIS BILATERAL Routine 08/04/2024 8:45 AM EDT HM COLONOSCOPY Routine 08/14/2021 11:04 AM EDT ZZZ HISTORICAL HPV MRNA E6/E7 Routine 02/24/2019 8:47 AM EST from Last 3 Months or Most Recently Relevant to Health Maintenance Results * (ABNORMAL) BUN (Blood Urea Nitrogen) (10/16/2024 10:38 AM EDT) Urea Nitrogen (BUN) 22(H) 9 - 16 mg/dL [facility] 10/16/2024 10:3 8 AM EDT 10/16/2024 3:56 PM EDT us Generic External Data Provider LAB BLOOD ORDERAB LES Final Result Performing Organization Address [facility] Co de Phone Number [facility] [address] [place] [address] [phone] * Calcium (10/16/2024 10:38 AM EDT) Calcium 9.2 8.4 - 10.2 mg/dL [facility] 10/16/2024 10:3 8 AM EDT 10/16/2024 3:56 PM EDT us Generic External Data Provider LAB BLOOD ORDERAB LES Final Result Performing Organization Address [facility]/ZIP Co de Phone Number [facility] [address] [place] [address] [phone] * (ABNORMAL) Lipid Panel, Standard (10/16/2024 10:38 AM EDT) Triglycerides 66 <150 mg/dL [facility] Comment:Desirable Triglyceri de: less than 150 mg/dLBorderline High Triglyceride 150-199 mg/dLHigh Triglyceride: 200-499 mg/dLVery High Triglyceride: greater than or equal to 5OO mg/dL Cholesterol 224(H) <200 mg/dL [facility] Comment:Desirable Cholestero l: less than 200 mg/dLBorderline High Cholesterol: 200-239 mg/dLHigh Cholesterol: greater than 239 mg/dL LDL Cholesterol Calculated 154(H) <100 mg/dL [facility] Comment:Desirable LDL: less than 100 mg/dLNear Optimal/Above Optimal LDL: 110- 129 mg/dLBorderline High LDL: 130-159 mg/dLHigh LDL: 160-189 mg/dLVery High LDL: greater than or equal to 190 mg/dL HDL Cholesterol 57 >40 mg/dL [facility] Comment:Desirable HDL: great er than 40 mg/dL Note: This HDL assay may give artificially low results in patients with liver disease. Blood Venous blood specimen / Unknown 10/16/2024 10:38 AM EDT 10/16/2024 3:42 PM EDT Cornell Gonzalez MD LAB BLOOD ORDERABL ES Final Result Performing Organization Address [facility]/ZIP Co de Phone Number [facility] [address] [place] [address] [phone] * (ABNORMAL) Comprehensive Metabolic Panel (10/16/2024 10:38 AM EDT) Sodium 143 135 - 145 mmol/L [facility] Potassium 3.5 3.3 - 5.1 mmol/L [facility] Chloride 111(H) 96 - 108 mmol/L [facility] Carbon Dioxide 24 22 - 29 mmol/L [facility] Anion Gap 12 12 - 20 [facility] Urea Nitrogen (BUN) 22(H) 9 - 16 mg/dL [facility] Creatinine, Serum 0.61 0.5 - 1.4 mg/dL [facility] Estimated Glomerular Filt Rate >60 [facility] Comment:Chronic Kidney Disea se: Estimated GFR < 60 mL/min/1.21q1Mphmhn Kidney Disease: Estimated GFR < 15 mL/min/1.73m2 Glucose 81 60 - 115 mg/dL [facility] Calcium 9.3 8.4 - 10.2 mg/dL [facility] Bilirubin, Total 0.4 0.0 - 1.0 mg/dL [facility] Aspartate Amino Transferase 29 5 - 31 U/L [facility] Alanine Aminotransferase 34(H) 0 - 31 U/L [facility] Total Protein 7.9 6.5 - 8.0 g/dL [facility] Albumin Level 4.3 3.5 - 5.0 g/dL [facility] Alkaline Phosphatase 87 39 - 117 U/L [facility] Blood Venous blood specimen / Unknown 10/16/2024 10:38 AM EDT 10/16/2024 3:42 PM EDT us Cornell Gonzalez MD LAB BLOOD ORDERABL ES Final Result [facility] [address] [place] [address] [place] [phone] * BI Mammogram Screening Tomosynthesis Bilateral (08/04/2024 8:45 AM EDT) Anatomical Region Laterality Modality Breast Bilateral Mammography 08/04/2024 8:45 AM EDT Narrative 08/11/2024 10:35 AM EDT [facility] [address] [place] [address] Mammography Report Signed Patient: Lupillo CamzquezFloresita MR#: [id number] : 1970 Acct:[id number] Age/Sex: 54 / F ADM Date: 08/04/24 Loc: HO.MAMMO Attending Dr: Cornell Gonzalez MD Ordering Physician: Cornell Fragoso MD Res ults: 2Benign Findings Date of Service: 08/04/24 Follow Up: 1 Year From Orig ina Mammogram Procedure(s): MM tomosynthesis screening BI Accession Number(s): [id number] cc: Cornell Fragoso MD EXAMINATION: MM SCREENING [...] 08/11/24 1032 DD/ 0845 TD/TT: 08/04/24 0901 Boom Crane Operator: Procedure Note Donotuseinterpreter, Image - 08/11/2024 [facility] [address] [place] [address] [place] [address] Mammography Report Signed Patient: Floresita LandaverdeMR#: [id number] : 1970Acct:[id number] Age/Sex: 54 / FADM Date: 08/04/24 Loc: HO.MAMMO Attending Dr: Cornell Gonzalez MD Ordering Physician: Cornell Fragoso ults: 2Benign Findings Date of Service: 08/04/24Follow Up: 1 Year From Orig inal Mammogram Procedure(s): MM tomosynthesis screening BI Accession Number(s): [id number] cc: Cornell Fragoso MD EXAMINATION: MM SCREENING [...] 08/11/24 1032 DD/ 0845 TD/TT: 08/04/24 0901 Boom Crane Operator: Cornell Gonzalez MD IMG BI PROCEDURES Final Result * Hm Colonoscopy (08/14/2021 11:04 AM EDT) Historical Provider HEALTH MAINTENANCE Final Result * HPV mRNA E6/E7 (02/24/2019 8:47 AM EST) HPV mRNA E6/E7 Not Detected NOT DETECTED [facility] Comment: This test was performed using the APTIMA(R) HPV Assay ([employer] This assay detects E6/E7 viral messenger RNA (mRNA) from 14 high-risk HPV types (16,18,31,33,35,39,45,51, 52,56,58,59,66,68). For additional information please refer to: http://education.[employer]/faq/KPR270z6 (This link is being provided for informational/ educational purposes only.) The analytical performance characteristics of this assay have been determined by ip.access [place], [place]. The modifications have not been cleared or approved by the FDA. This assay has been validated pursuant to the CLIA regulations and is used for clinical purposes. Test Performed by [facility], [facility], [address] [place] [address] Christopher Hidalgo M.D., Ph.D., Director of Laboratories , CLIA [id number] Please note: Effective 11/07/2015, HPV testing will be performed using [employer]'s APTIMA test which targets mRNA. Detecting mRNA instead of DNA, as in older methods, offers significant improvements in specificity. 02/24/2019 8:47 AM EST Kristin Schaefer CNM HISTORICAL/NON ORDERABLE LABS Final Result [facility] Formerly [facility] [address] from Last 3 Months or Most Recently Relevant to Health Maintenance Insurance [facility] [employer] Care Teams Pricing Supervisor Relationship Specialty Start Date End Date Cornell Fragoso MD [address] [place] [phone] PCP - General Internal Medicine 12/30/20
[2024-12-18 15:35] LABS: Anion Gap 10 (12-20); Blood Urea Nitrogen 16 mg/dL (9-16); Calcium 9.4 mg/dL (8.4-10.2); Carbon Dioxide 31 mmol/L (22-29); Chloride 106 mmol/L (96-108); Estimated Glomerular Filt Rate > 60; Potassium 3.7 mmol/L (3.3-5.1); Sodium 143 mmol/L (135-145)
== END 2024-12-18 08:35 | disposition home or self-care (01) ==
LOC: HO.CHCLDS 08:34
PROVIDERS: Visit Provider Internal Medicine Nephrology
DX: I10 Essential (primary) hypertension (principal); N20.0 Calculus of kidney; N28.1 Cyst of kidney, acquired
CPT/HCPCS: 36415; 80051; 82310; 82565; 84520

== ENCOUNTER 2024-12-25 13:55 | Outpatient (AMB) | payer OTHER, SELFPAY ==
--- NOTE | 2024-12-25 14:05 | HO.NEPHOV ---
Vital Signs 12/25/24 14:07 Height 4 ft 11 in Weight 155 lb 2 oz BMI 31.3 BP 110/70 Blood Pressure Location Rt brachial Position Sitting Intake Visit Reasons: 2mon f/u w/labs-LVM Invoicing Machine Operator Required: Yes Invoicing Machine Operator Language: Wire Twister Services: Invoicing Machine Operator Present Invoicing Machine Operator Name: [id number] Information Interpreted: clinical only Accompanied by: Spouse Allergies No Known Allergies Allergy (Verified 12/25/24 14:06) HPI Comments Details: I had the privilege of seeing Floresita in follow up who is a pleasant 53 year old Libyan speaking patient with a past medical history of nephrolithiasis, hypertension, and renal cysts. She has H/O multiple visits at [facility] for left-sided flank pain. CT of the abdomen and pelvis without contrast that was performed 03/27/24 at [place] showed a 6 mm stone in the distal left ureter with associated moderate hydroureteronephrosis with trace right medullary calcifications. There was a low-density lesion in the right kidney too small to characterize probably represents a cyst as well as punctate stones in the left kidney. She has H/O right ureteroscopy laser lithotripsy & ureteral stent followed by removal. She had a 24 hour urine which showed a urine volume of 2.2 liters. Her Urine citrate levels were 888. Her urine calcium and oxalate levels were elevated. She is on vitamin B6, which may aid in reducing urine oxalate levels. She denied urinary urgency, urinary frequency, incontinence, nocturia, hematuria, dysuria, foul smelling urine, changes to urinary stream, fever, and or chills. Her BP has been at goal.She has family H/O renal calculi. Her renal function has been normal. [facility] Medical History (Updated 09/21/24 @ 20:04 by Kashif Torrez MD) Retention, urine Nephrolithiasis Vitiligo Mild acid reflux HTN (hypertension) Renal cyst, acquired Surgical History Hx of colonoscopy History of lithotripsy History of hernia repair History of breast surgery History of tubal ligation Family History Mother Diabetes HTN (hypertension) Father HTN (hypertension) Brother Colon cancer Social History Household Members: Significant Other Are you a primary home care liaison to a significant other at home: No Do you presently have visiting nurse or other home services: No Alcohol intake: never Patient Tobacco Use Status: Never used Tobacco Review of Systems Const All systems reviewed & are unremarkable except as noted in HPI and below Physical Exam Vital Signs: Last Vital Signs BP 110/70 12/25/24 14:07 BMI result Body Mass Index 31.3 Const General: comfortable and no acute distress Orientation/consciousness: patient oriented x3 HEENT Head: Yes normocephalic Mouth: Normal oral and palatal mucosa present Eyes EOM: EOMs intact bilaterally Neck Neck: Yes supple Resp Auscultation: clear to auscultation bilaterally Cardio Jugular venous distension: no JVD Rate: regular rate GI Palpation (GI): Soft to palpation Auscultation: normal bowel sounds General: Yes no CVA tenderness Back/Spine/Pelvis Back: no CVA tenderness Skin General skin exam: no rashes or lesions noted Neuro General: patient oriented x3 and moves all extremities Extrem General: Yes no pedal edema Results Reviewed Nephrology Results: Sodium, (135-145) 143 mmol/L 12/18/24 Potassium, (3.3-5.1) 3.7 mmol/L 12/18/24 Chloride, (96-108) 106 mmol/L 12/18/24 Carbon Dioxide, (22-29) 31 mmol/L H 12/18/24 BUN, (9-16) 16 mg/dL 12/18/24 Creatinine, (0.5-1.4) 0.54 mg/dL 12/18/24 Calcium, (8.4-10.2) 9.4 mg/dL 12/18/24 Renal US 08/07/24 Assessment & Plan Assessment & Plan (1) HTN (hypertension): Code(s): I10 - Essential (primary) hypertension Category: Medical Qualifiers: Hypertension type: primary hypertension Qualified Code(s): I10 - Essential (primary) hypertension (2) Nephrolithiasis: Code(s): N20.0 - Calculus of kidney Category: Medical (3) Renal cyst: Code(s): N28.1 - Cyst of kidney, acquired Category: Medical Plan She has H/O multiple renal calculi as well as trace right medullary calcifications. She has H/O right ureteroscopy laser lithotripsy & ureteral stent followed by removal. She had a 24 hour urine which showed a urine volume of 2.2 liters. Her Urine citrate levels were 888. Her urine calcium and oxalate levels were elevated. She is on vitamin B6, which may aid in reducing urine oxalate levels. She denied urinary urgency, urinary frequency, incontinence, nocturia, hematuria, dysuria, foul smelling urine, changes to urinary stream, fever, and or chills. Her BP has been at goal.She has family H/O renal calculi. Her renal function has been normal. She should be on a low sodium diet and cut back meat in the diet along with increase in fruits & vegetables. She should continue HCTZ 25 mg daily as well as K citrate twice daily. Follow up labs ordered. Plan to order F/U renal imaging next year. Answered all questions and follow up appointment given Orders: Orders UA and rflx microscopic 6 Months I10 - Essential (primary) hypertension, N20.0 - Calculus of kidney, N28.1 - Cyst of kidney, acquired Blood Urea Nitrogen 6 Months I10 - Essential (primary) hypertension, N20.0 - Calculus of kidney, N28.1 - Cyst of kidney, acquired Creatinine 6 Months I10 - Essential (primary) hypertension, N20.0 - Calculus of kidney, N28.1 - Cyst of kidney, acquired Electrolytes 6 Months I10 - Essential (primary) hypertension, N20.0 - Calculus of kidney, N28.1 - Cyst of kidney, acquired Calcium 6 Months I10 - Essential (primary) hypertension, N20.0 - Calculus of kidney, N28.1 - Cyst of kidney, acquired Coding Level of Care Code Est Pt Level 4 (02940) Diagnoses Primary hypertension I10 Hypertension type: primary hypertension Nephrolithiasis N20.0 Renal cyst N28.1
[2024-12-25 14:07] VITALS: BP 110/70; BMI 31.3
--- OUTSIDE RECORDS SUMMARY | 2024-12-25 14:48 | XMS_ITS | Encounter Summary ---
Author Organization [employer] Address [address] [facility] 7t [place] [address] Care Team Providers Care Seafood Fisherman Name Role Phone Cornell Fragoso MD Primary Care Prov ider Encounter Details Date Type Department Care Team ([facility] st Contact Info) Description 06/11/2023 Orders Only [facility] MEDICINE [address] [place], [place] [phone] Provider, MD Krista Social History Tobacco Use [...] Upcoming Encounters Date Type Department Care Team ([facility] st Contact Info) Description 02/15/2025 1:15 PM EST Telemedicine [facility] CHC MED & PEDS [address] [place] [address] Cornell Fragoso MD [address] [place] [address] documented as of this encounter Procedures Procedure [...] documented as of this encounter Care Teams Seafood Fisherman Relationship Specialty Start Date End Date Cornell Fragoso MD [address] [place] [address] PCP - General Internal Medicine 12/30/20 documented as of this encounter
--- OUTSIDE RECORDS SUMMARY | 2024-12-25 14:48 | XMS_ITS | Clinical Summary ---
Author Organization [facility] Address [address] [place] [address] Phone Care Team Providers Care Auto Mechanic Apprentice Name Role Phone Cornell Fragoso Primary Care Provide r Allergies No known active allergies Surgical History Surgery Date Site/Laterality Comments BREAST LUMPECTOMY PROCEDURE: HISTORICAL BREAST LUMPECTOMY INCISIONAL HERNIA REPAIR PROCEDURE: IN IMPLANT MESH OPN HERNIA RPR/DEBRIDEMENT CLOSURE TUBAL [...] [facility] Comment:Calculation based on the Chronic Kidney [...] AM [facility] Total Protein 8.0 6.0 - 8.0 g/dL LAB CHEMISTRY METHOD 03/27/2024 11:05 AM [facility] Albumin 3.6 3.2 - 5.0 g/dL LAB CHEMISTRY METHOD 03/27/2024 11:05 AM [facility] Total Bilirubin 0.4 0.0 - 1.4 mg/dL LAB CHEMISTRY METHOD 03/27/2024 11:05 AM [facility] Blood Venous blood specimen / Unknown Venipuncture / Unknown 03/27/2024 10:22 AM EST 03/27/2024 10:29 AM EST us Morgan Rizzo MD LAB BLOOD ORDERABLES Alicia l Result [facility] [address] [place] [address], [place] [phone] from Last 3 Months or Most Recently Relevant to Health Maintenance Insurance [facility] KEV [place] [id number] Care Teams Auto Mechanic Apprentice Relationship Specialty Start Date End Date Cornell Fragoso [address] [place] [address] PCP - General Internal Medicine 01/18/21
--- OUTSIDE RECORDS SUMMARY | 2024-12-25 14:48 | XMS_ITS | Encounter Summary ---
Author Organization [employer] Address [address] [address] Care Team Providers Care Senior Analysis Specialist Name Role Phone Cornell Fragoso MD Primary Care Prov ider Reason for Visit * Reason Onset Date Comments Nurse Triage 03/27/2024 Encounter Details Date Type Department Care Team ([facility] st Contact Info) Description 03/27/2024 Telephone [facility] MEDICINE [address] [place] [address] Cornell Fragoso MD [address] [place] [address] Nurse Triage Social History Tobacco Use Types [...] EST Sent to team for [facility] ER status check PRN. * Telephone Encounter - Nayeli Moya RN - 03/27/2024 9:21 AM EST Call returned to Floresita Montes to triage below. No conference interpreter needed as this marketing copywriter speaks Jamaican. Reports having epigastric abdominal pain x 1 week. Per pt worse today. Today onset of vomiting, has yellow green bile. No blood. Denies any diarrhea. Pt having cough congestion and ST 1 week ago. Denies any fever. Pt has not checked BP as kit is out of service. Pt advised of disposition agrees to seek [facility] ER now for evaluation. Pt [...] Info) Description 02/15/2025 1:15 PM EST Telemedicine [facility] MED & PEDS [address] [place] [address] Cornell Fragoso MD [address] [place] [address] documented as of this encounter Visit Diagnoses Not on filedocumented in this encounter Additional Health Concerns Assessment Noted Time PHQ-9 Depression Total Score: 0 06/21/19 23 10:32 AM EDT documented as of this encounter Care Teams Senior Analysis Specialist Relationship Specialty Start Date End Date Cornell Fragoso MD [address] [place] [address] PCP - General Internal Medicine 12/30/20 documented as of this encounter
--- OUTSIDE RECORDS SUMMARY | 2024-12-25 14:48 | XMS_ITS | Encounter Summary ---
Author Organization [employer] [facility] Address [address] [place] [phone] Care Team Providers Care Burning Plant Operator Name Role Phone Cornell Fragoso MD Primary Care Prov ider Encounter Details Date Type Department Care Team (Late Contact Info) Description 02/21/2022 Orders Only [facility] MEDICINE [address] [place], [place] [phone] Cornell Fragoso MD [address] [place] [address] Social History Tobacco Use Types Packs/Day Years [...] Info) Description 02/15/2025 1:15 PM EST Telemedicine [facility] CHC MED & PEDS [address] [place], [place] [phone] Cornell Fragoso MD [address] [place] [address] documented as of this encounter Visit Diagnoses Not on filedocumented in this encounter Care Teams Burning Plant Operator Relationship Specialty Start Date End Date Cornell Fragoso MD [address] [place] [address] PCP - General Internal Medicine 12/30/20 documented as of this encounter
--- OUTSIDE RECORDS SUMMARY | 2024-12-25 14:48 | XMS_ITS | Encounter Summary ---
Author Organization [employer] Address [address] [place] [address] 7 [place] [address] Care Team Providers Care Card Boxer Name Role Phone Cornell Fragoso MD Primary Care Prov ider Reason for Visit * Reason Comments Med Refill Encounter Details Date Type Department Care Team ([facility] Contact Info) Description 01/30/2024 Refill [facility] CHC MED & PEDS [address] [place], [place] [phone] Cornell Fragoso MD [address] [place] [address] Primary hypertension Social History Tobacco Use Types [...] 02/15/2025 1:15 PM EST Telemedicine [facility] MED & PEDS [address] [place] [address] Cornell Fragoso MD [address] [place] [address] documented as of this encounter Visit Diagnoses Diagnosis Primary hypertension Unspecified essential hypertension documented in this encounter Additional Health Concerns Assessment Noted Time PHQ-9 Depression Total Score: 0 06/21/19 23 10:32 AM EDT documented as of this encounter Care Teams Card Boxer Relationship Specialty Start Date End Date Cornell Fragoso MD [address] [place] [address] PCP - General Internal Medicine 12/30/20 documented as of this encounter
--- OUTSIDE RECORDS SUMMARY | 2024-12-25 14:48 | XMS_ITS | Clinical Summary ---
Author Organization [employer] Address [address] [facility] 7t [place] [address] Care Team Providers Care Hydrologic Engineer Name Role Phone Cornell Fragoso MD Primary [...] (11/18/2024 5:25 PM EDT): Done 2022 at [facility] [place] to update chart Chronic [...] Description 11/16/2024 9:30 AM EDT Office Visit [facility] PEDS [address] [place] [address] Cornell Fragoso MD Chronic pain of left knee (Primary Dx); Screening for colon cancer; Primary hypertension 11/16/2024 Travel 11/13/2024 Telephone [facility] PED[facility] [address] [place] [address] Cornell Fragoso MD CHART PREP 10/16/2024 Orders [...] Upcoming Encounters Date Type Department Care Team ([facility] st Contact Info) Description 02/15/2025 1:15 PM EST Telemedicine [facility] CHC MED & PEDS [address] [place] [address] Cornell Fragoso MD [address] [place] [address] Health Maintenance Due Date Last Done Comments [...] Nitrogen (BUN) 22(H) 9 - 16 mg/dL [facility] 10/16/2024 10:3 8 AM EDT 10/16/2024 3:56 PM EDT us Generic External Data Provider LAB BLOOD ORDERAB LES Final Result Performing Organization Address [facility] Co de Phone Number [facility] [address] [place] [phone] * Calcium (10/16/2024 10:38 AM EDT) Calcium 9.2 8.4 - 10.2 mg/dL [facility] 10/16/2024 10:3 8 AM EDT 10/16/2024 3:56 PM EDT us Generic External Data Provider LAB BLOOD ORDERAB LES Final Result Performing Organization Address [facility]/ZIP Co de Phone Number [facility] [address] [place] [phone] * (ABNORMAL) Lipid Panel, Standard (10/16/2024 10:38 AM EDT) Triglycerides 66 <150 mg/dL [facility] Comment:Desirable Triglyceri de: less than 150 mg/dLBorderline High Triglyceride 150-199 mg/dLHigh Triglyceride: 200-499 mg/dLVery High Triglyceride: greater than or equal to 5OO mg/dL Cholesterol 224(H) <200 mg/dL [facility] Comment:Desirable Cholestero l: less than 200 mg/dLBorderline High Cholesterol: 200-239 mg/dLHigh Cholesterol: greater than 239 mg/dL LDL Cholesterol Calculated 154(H) <100 mg/dL [facility] Comment:Desirable LDL: less than 100 mg/dLNear Optimal/Above Optimal LDL: 110- 129 mg/dLBorderline High LDL: 130-159 mg/dLHigh LDL: 160-189 mg/dLVery High LDL: greater than or equal to 190 mg/dL HDL Cholesterol 57 >40 mg/dL [facility] Comment:Desirable HDL: great er than 40 mg/dL Note: This HDL assay may give artificially low results in patients with liver disease. Blood Venous blood specimen / Unknown 10/16/2024 10:38 AM EDT 10/16/2024 3:42 PM EDT Cornell Gonzalez MD LAB BLOOD ORDERABL ES Final Result Performing Organization Address [facility]/ZIP Co de Phone Number [facility] [address] [place] [phone] [phone] * (ABNORMAL) Comprehensive Metabolic Panel (10/16/2024 10:38 AM EDT) Sodium 143 135 - 145 mmol/L [facility] Potassium 3.5 3.3 - 5.1 mmol/L [facility] Chloride 111(H) 96 - 108 mmol/L [facility] Carbon Dioxide 24 22 - 29 mmol/L [facility] Anion Gap 12 12 - 20 [facility] Urea Nitrogen (BUN) 22(H) 9 - 16 mg/dL [facility] Creatinine, Serum 0.61 0.5 - 1.4 mg/dL [facility] Estimated Glomerular Filt Rate >60 [facility] Comment:Chronic Kidney Disea se: Estimated GFR < 60 mL/min/1.66e5Gkjnvm Kidney Disease: Estimated GFR < 15 mL/min/1.73m2 Glucose 81 60 - 115 mg/dL [facility] Calcium 9.3 8.4 - 10.2 mg/dL [facility] Bilirubin, Total 0.4 0.0 - 1.0 mg/dL [facility] Aspartate Amino Transferase 29 5 - 31 U/L [facility] Alanine Aminotransferase 34(H) 0 - 31 U/L [facility] Total Protein 7.9 6.5 - 8.0 g/dL [facility] Albumin Level 4.3 3.5 - 5.0 g/dL [facility] Alkaline Phosphatase 87 39 - 117 U/L [facility] Blood Venous blood specimen / Unknown 10/16/2024 10:38 AM EDT 10/16/2024 3:42 PM EDT us Cornell Gonzalez MD LAB BLOOD ORDERABL ES Final Result [facility] [address] [place] [address] [place] [phone] * BI Mammogram Screening Tomosynthesis Bilateral (08/04/2024 8:45 AM EDT) Anatomical Region Laterality Modality Breast Bilateral Mammography 08/04/2024 8:45 AM EDT Narrative 08/11/2024 10:35 AM EDT [facility] [address] [place] [address] Mammography Report Signed Patient: Lupillo CamzquezFloresita MR#: [id number] : 1970 Acct:[id number] Age/Sex: 54 / F ADM Date: 08/04/24 Loc: HO.MAMMO Attending Dr: Cornell Gonzalez MD Ordering Physician: Cornell Fragoso MD Res ults: 2Benign Findings Date of Service: 08/04/24 Follow Up: 1 Year From Orig ina Mammogram Procedure(s): MM tomosynthesis screening BI Accession Number(s): [id number] cc: Cornell Fragoso MD EXAMINATION: MM SCREENING [...] 08/11/24 1032 DD/ 0845 TD/TT: 08/04/24 0901 Steel Burner: Procedure Note Donotuseinterpreter, Image - 08/11/2024 [facility] [address] [place] [address] [place] [address] Mammography Report Signed Patient: Floresita LandaverdeMR#: [id number] : 1970Acct:[id number] Age/Sex: 54 / FADM Date: 08/04/24 Loc: HO.MAMMO Attending Dr: Cornell Gonzalez MD Ordering Physician: Cornell Fragoso ults: 2Benign Findings Date of Service: 08/04/24Follow Up: 1 Year From Orig inal Mammogram Procedure(s): MM tomosynthesis screening BI Accession Number(s): [id number] cc: Cornell Fragoso MD EXAMINATION: MM SCREENING [...] 08/11/24 1032 DD/ 0845 TD/TT: 08/04/24 0901 Steel Burner: Cornell Gonzalez MD IMG BI PROCEDURES Final Result * Hm Colonoscopy (08/14/2021 11:04 AM EDT) Historical Provider HEALTH MAINTENANCE Final Result * HPV mRNA E6/E7 (02/24/2019 8:47 AM EST) HPV mRNA E6/E7 Not Detected NOT DETECTED [facility] Comment: This test was performed using the APTIMA(R) HPV Assay ([employer] This assay detects E6/E7 viral messenger RNA (mRNA) from 14 high-risk HPV types (16,18,31,33,35,39,45,51, 52,56,58,59,66,68). For additional information please refer to: http://education.[employer]/faq/GTT418a7 (This link is being provided for informational/ educational purposes only.) The analytical performance characteristics of this assay have been determined by [employer] [place], [place]. The modifications have not been cleared or approved by the FDA. This assay has been validated pursuant to the CLIA regulations and is used for clinical purposes. Test Performed by [facility], [facility], [address] [place] [address] Christopher Hidalgo M.D., Ph.D., Director of Laboratories , CLIA [id number] Please note: Effective 11/07/2015, HPV testing will be performed using [employer]'s APTIMA test which targets mRNA. Detecting mRNA instead of DNA, as in older methods, offers significant improvements in specificity. 02/24/2019 8:47 AM EST Kristin Schaefer CNM HISTORICAL/NON ORDERABLE LABS Final Result [facility] [address] from Last 3 Months or Most Recently Relevant to Health Maintenance Insurance [facility] Care Teams Hydrologic Engineer Relationship Specialty Start Date End Date Cornell Fragoso MD [address] [place] [phone] PCP - General Internal Medicine 12/30/20
== END 2024-12-25 14:14 | disposition home or self-care (01) ==
LOC: HO.HKA 13:56
PROVIDERS: PCP Internal Medicine; Visit Provider Internal Medicine Nephrology
DX: I10 Essential (primary) hypertension (principal); N20.0 Calculus of kidney; N28.1 Cyst of kidney, acquired
CPT/HCPCS: 99214

== ENCOUNTER 2025-02-12 08:34 | Outpatient (REF) | payer OTHER, SELFPAY ==
--- OUTSIDE RECORDS SUMMARY | 2025-02-12 08:47 | XMS_ITS | Encounter Summary ---
Author Organization [employer] Address [address] [facility] 7t [place] [address] Care Team Providers Care Etcher Aircraft Name Role Phone Cornell Fragoso MD Primary Care Prov ider Encounter Details Date Type Department Care Team ([facility] st Contact Info) Description 06/11/2023 Orders Only [facility] MEDICINE [address] [place], [place] [phone] Provider, MD Krista Social History Tobacco Use [...] Upcoming Encounters Date Type Department Care Team ([facility] st Contact Info) Description 02/15/2025 1:15 PM EST Telemedicine [facility] MED & PEDS [address] [place] [address] Cornell Fragoso MD [address] [place] [address] documented as of this encounter Procedures Procedure [...] documented as of this encounter Care Teams Etcher Aircraft Relationship Specialty Start Date End Date Cornell Fragoso MD [address] [place] [address] PCP - General Internal Medicine 12/30/20 documented as of this encounter
--- OUTSIDE RECORDS SUMMARY | 2025-02-12 08:47 | XMS_ITS | Encounter Summary ---
Author Organization [facility] Address [address] [place] [address] Care Team Providers Care Electrical Instrument Technician Name Role Phone Cornell Fragoso MD Primary Care Prov ider Encounter Details Date Type Department Care Team (Late Contact Info) Description 02/21/2022 Orders Only [facility] MEDICINE [address] [place], [place] [phone] Cornell Fragoso MD [address] [place] [address] Social History Tobacco Use Types Packs/Day Years [...] Info) Description 02/15/2025 1:15 PM EST Telemedicine [facility] MED & PEDS [address] [place], [place] [phone] Cornell Fragoso MD [address] [place] [address] documented as of this encounter Visit Diagnoses Not on filedocumented in this encounter Care Teams Electrical Instrument Technician Relationship Specialty Start Date End Date Cornell Fragoso MD [address] [place] [address] PCP - General Internal Medicine 12/30/20 documented as of this encounter
--- OUTSIDE RECORDS SUMMARY | 2025-02-12 08:47 | XMS_ITS | Encounter Summary ---
Author Organization [employer] Address [address] [place] [address] 7 [place] [address] Care Team Providers Care Software Application Tester Name Role Phone Cornell Fragoso MD Primary Care Prov ider Reason for Visit * Reason Comments Med Refill Encounter Details Date Type Department Care Team ([facility] Contact Info) Description 01/30/2024 Refill [facility] MED & PEDS [address] [place], [place] [phone] Cornell Fragoso MD [address] [place] [address] Primary hypertension Social History Tobacco Use Types [...] 02/15/2025 1:15 PM EST Telemedicine [facility] & PEDS [address] [place] [address] Cornell Fragoso MD [address] [place] [address] documented as of this encounter Visit Diagnoses Diagnosis Primary hypertension Unspecified essential hypertension documented in this encounter Additional Health Concerns Assessment Noted Time PHQ-9 Depression Total Score: 0 06/21/19 23 10:32 AM EDT documented as of this encounter Care Teams Software Application Tester Relationship Specialty Start Date End Date Cornell Fragoso MD [address] [place] [address] PCP - General Internal Medicine 12/30/20 documented as of this encounter
--- OUTSIDE RECORDS SUMMARY | 2025-02-12 08:47 | XMS_ITS | Clinical Summary ---
Author Organization [employer] Address [address] [facility] [address] [place] [address] Care Team Providers Care Linseed Oil Temperer Name Role Phone Cornell Fragoso MD Primary [...] (11/18/2024 5:25 PM EDT): Done 2022 at [place] will task [place] to update chart Chronic [...] Encounters Date Type Department Care Team Description 01/05/2025 Telephone [facility] MED & PEDS [address] [facility] [place] [address] Cornell Fragoso MD appointment 11/16/2024 9:30 AM EDT Office Visit [facility] MED & PEDS [address] [facility] [place] [address] Cornell Fragoso MD Chronic pain of left knee (Primary Dx); Screening for colon cancer; Primary hypertension 11/16/2024 Travel 11/13/2024 Telephone [facility] MED & PEDS [address] [facility] [place] [address] Cornell Fragoso MD CHART PREP from Last 3 Months Immunizations Immunization Administration [...] your housing situation today? I have shelli sing 11/16/[address] you li [...] Info) Description 02/15/2025 1:15 PM EST Telemedicine [facility] MED & PEDS [address] [place] [address] Cornell Fragoso MD [address] [place] [address] Health Maintenance Due Date Last Done Comments [...] Additional history exists Lipid Panel 10/16/2029 10/16/2024, 1203/2021, 12/30/2020 RSV Patients and Patients Aged 60 [...] Procedure Name Priority Date/Time Associated Diagnosis Comments LIPID PANEL, STANDARD Routine 10/16/2024 10:38 AM EDT Primary hypertension BI MAMMOGRAM SCREENING TOMOSYNTHESIS BILATERAL Routine 08/04/2024 8:45 AM EDT HM COLONOSCOPY Routine 08/14/2021 11:04 AM EDT ZZZ HISTORICAL HPV MRNA E6/E7 Routine 02/24/2019 8:47 AM EST from Last 3 Months or Most Recently Relevant to Health Maintenance Results * (ABNORMAL) Lipid Panel, Standard (10/16/2024 10:38 AM EDT) Triglycerides 66 <150 mg/dL [facility] Comment:Desirable Triglyceri de: less than 150 mg/dLBorderline High Triglyceride 150-199 mg/dLHigh Triglyceride: 200-499 mg/dLVery High Triglyceride: greater than or equal to 5OO mg/dL Cholesterol 224(H) <200 mg/dL [facility] Comment:Desirable Cholestero l: less than 200 mg/dLBorderline High Cholesterol: 200-239 mg/dLHigh Cholesterol: greater than 239 mg/dL LDL Cholesterol Calculated 154(H) <100 mg/dL [facility] Comment:Desirable LDL: less than 100 [...] MD LAB BLOOD ORDERABL ES Final Result [facility] [address] [facility] [place] [place] [address] [phone] * BI Mammogram Screening Tomosynthesis Bilateral (08/04/2024 8:45 AM EDT) Anatomical Region Laterality Modality Breast Bilateral Mammography 08/04/2024 8:45 AM EDT Narrative 08/11/2024 10:35 AM EDT [facility] [address] [place] [address] Mammography Report Signed Patient: Floresita Landaverde MR#: [id number] : 1970 Acct:[id number] Age/Sex: 54 / F ADM Date: 08/04/24 Loc: HO.MAMMO Attending Dr: Cornell Gonzalez MD Ordering Physician: Cornell Fragoso MD Res ults: 2Benign Findings Date of Service: 08/04/24 Follow Up: 1 Year From [facility] Mammogram Procedure(s): MM tomosynthesis screening BI Accession Number(s): [id number] cc: Cornell Fragoso MD EXAMINATION: MM SCREENING [...] Francia Monteiro DO 08/11/2024 10:32 AM EDT RP Dictated By: Francia Monteiro DO Signed By: <Electronically signed by Francia Monteiro DO in OV> 08/11/24 1032 DD/ 0845 TD/TT: 08/04/24 0901 District Fire Chief: Procedure Note Donotuseinterpreter, Image - 08/11/2024 [facility] [address] [place] [address] Mammography Report Signed Patient: Floresita LandaverdeMR#: [id number] : 1970Acct:[id number] Age/Sex: 54 / FADM Date: 08/04/24 Loc: HO.MAMMO Attending Dr: Cornell Gonzalez MD Ordering Physician: Cornell Fragoso ults: 2Benign Findings Date of Service: 08/04/24Follow Up: 1 Year From Orig ina Mammogram Procedure(s): MM tomosynthesis screening BI Accession Number(s): [id number] cc: Cornell Fragoso MD EXAMINATION: MM SCREENING [...] Francia Monteiro DO 08/11/2024 10:32 AM EDT RP Dictated By: Francia Monteiro DO Signed By: <Electronically signed by Francia Monteiro DO in OV> 08/11/24 1032 DD/ 0845 TD/TT: 08/04/24 0901 District Fire Chief: Cornell Gonzalez MD IMG BI PROCEDURES Final Result * Hm Colonoscopy (08/14/2021 11:04 AM EDT) Historical Provider HEALTH MAINTENANCE Final Result * HPV mRNA E6/E7 (02/24/2019 8:47 AM EST) HPV mRNA E6/E7 Not Detected NOT DETECTED [facility] Comment: This test was performed using the APTIMA(R) HPV Assay ([employer] This assay detects E6/E7 viral messenger RNA (mRNA) from 14 high-risk HPV types (16,18,31,33,35,39,45,51, 52,56,58,59,66,68). For additional information please refer to: http://education.aBIZinaBOX/faq/HIC943b8 (This link is being provided for informational/ educational purposes only.) The analytical performance characteristics of this assay have been determined by [employer] [place], [place]. The modifications have not been cleared or approved by the FDA. This assay has been validated pursuant to the CLIA regulations and is used for clinical purposes. Test Performed by [facility] [employer] [facility], [address] [place] [address] Christopher Hidalgo M.D., Ph.D., Director of Laboratories , CLIA [id number] Please note: Effective 11/07/2015, HPV testing will be performed using [employer] APTIMA test which targets mRNA. Detecting mRNA instead of DNA, as in older methods, offers significant improvements in specificity. 02/24/2019 8:47 AM EST Kristin Schaefer CNM HISTORICAL/NON ORDERABLE LABS Final Result [facility] [address] [place] [address], from Last 3 Months or Most Recently Relevant to Health Maintenance Insurance [facility] Care Teams Linseed Oil Temperer Relationship Specialty Start Date End Date Cornell Fragoso MD [address] [place] [id number] PCP - General Internal Medicine 12/30/20
--- OUTSIDE RECORDS SUMMARY | 2025-02-12 08:47 | XMS_ITS | Encounter Summary ---
Author Organization [employer] Address [address] [address] Care Team Providers Care Business Objects Developer Name Role Phone Cornell Fragoso MD Primary Care Prov ider Reason for Visit * Reason Onset Date Comments Nurse Triage 03/27/2024 Encounter Details Date Type Department Care Team ([facility] st Contact Info) Description 03/27/2024 Telephone [facility] [address] [place] [address] Cornell Fragoso MD [address] [place] [address] Nurse Triage Social History Tobacco Use Types [...] 9:26 AM EST Sent to team for [facility] ER status check PRN. * Telephone Encounter - Nayeli Moya RN - 03/27/2024 9:21 AM EST Call returned to Floresita Montes to triage below. No rubber factory worker needed as this commercial real estate underwriter speaks Nauruan. Reports having epigastric abdominal pain x 1 week. Per pt worse today. Today onset of vomiting, has yellow green bile. No blood. Denies any diarrhea. Pt having cough congestion and ST 1 week ago. Denies any fever. Pt has not checked BP as kit is out of service. Pt advised of disposition agrees to seek [facility] ER now for evaluation. Pt advised to [...] [facility] [address] [place] [address] Cornell Fragoso MD [address] [place] [address] documented as of this encounter Visit Diagnoses Not on filedocumented in this encounter Additional Health Concerns Assessment Noted Time PHQ-9 Depression Total Score: 0 06/21/19 23 10:32 AM EDT documented as of this encounter Care Teams Business Objects Developer Relationship Specialty Start Date End Date Cornell Fragoso MD [address] [place] [address] PCP - General Internal Medicine 12/30/20 documented as of this encounter
--- OUTSIDE RECORDS SUMMARY | 2025-02-12 08:47 | XMS_ITS | Clinical Summary ---
Author Organization [facility] Address [address] [place] [address] Phone Care Team Providers Care Optical Instrument Inspector Name Role Phone Cornell Fragoso Primary Care Provide r Allergies No known active allergies Surgical History Surgery Date Site/Laterality Comments BREAST LUMPECTOMY PROCEDURE: HISTORICAL BREAST LUMPECTOMY INCISIONAL HERNIA REPAIR PROCEDURE: [place] IMPLANT MESH OPN HERNIA RPR/DEBRIDEMENT CLOSURE TUBAL [...] on file Sexual Orientation Not on file Last Filed Vital Signs Vital Sign Reading [...] mmol/L LAB CHEMISTRY METHOD 03/27/2024 11:05 AM [facility] Potassium 4.1 3.5 - 5.5 mmol/L LAB CHEMISTRY METHOD 03/27/2024 11:05 AM [facility] Chloride 109 96 - 110 mmol/L LAB CHEMISTRY METHOD 03/27/2024 11:05 AM [facility] CO2 25 21 - 32 mmol/L LAB CHEMISTRY METHOD 03/27/2024 11:05 AM [facility] Anion Gap 6 3 - 11 LAB CHEMISTRY METHOD 03/27/2024 11:05 AM [facility] Glucose 160(H) 70 - 100 mg/dL LAB CHEMISTRY METHOD 03/27/2024 11:05 AM [facility] BUN 20 5 - 25 mg/dL LAB CHEMISTRY METHOD 03/27/2024 11:05 AM [facility] Creatinine 0.62 0.50 - 1.10 mg/dL LAB CHEMISTRY METHOD 03/27/2024 11:05 AM [facility] eGFR 107 >=60 mL/min/1. 73m2 LAB CHEMISTRY METHOD 03/27/2024 11:05 AM [facility] Comment:Calculation based on the Chronic Kidney Disease Epidemiology Collaboration (CKD-EPI) equation refit without adjustment for race. BUN/Creatinine Ratio 32.3 LAB CHEMISTRY METHOD 03/27/2024 11:05 AM [facility] Calcium 9.3 8.5 - 10.5 mg/dL LAB CHEMISTRY METHOD 03/27/2024 11:05 AM [facility] AST (SGOT) 20 10 - 42 unit/L LAB CHEMISTRY METHOD 03/27/2024 11:05 AM [facility] ALT (SGPT) 26 10 - 60 unit/L LAB CHEMISTRY METHOD 03/27/2024 11:05 AM [facility] Alkaline Phosphatase 97 42 - 121 unit/L LAB CHEMISTRY METHOD 03/27/2024 11:05 AM [facility] Total Protein 8.0 6.0 - 8.0 g/dL LAB CHEMISTRY METHOD 03/27/2024 11:05 AM [facility] Albumin 3.6 3.2 - 5.0 g/dL LAB CHEMISTRY METHOD 03/27/2024 11:05 AM [facility] Total Bilirubin 0.4 0.0 - 1.4 mg/dL LAB CHEMISTRY METHOD 03/27/2024 11:05 AM [facility] Blood Venous blood specimen / Unknown Venipuncture / Unknown 03/27/2024 10:22 AM EST 03/27/2024 10:29 AM EST us Morgan Rizzo MD LAB BLOOD ORDERABLES Alicia l Result [facility] [address] [place] [address], [place] [phone] from Last 3 Months or Most Recently Relevant to Health Maintenance Insurance [facility] [place] [id number] Care Teams Optical Instrument Inspector Relationship Specialty Start Date End Date Cornell Fragoso [address] [place] [address] PCP - General Internal Medicine 01/18/21
== END 2025-02-12 08:35 | disposition home or self-care (01) ==
LOC: HO.CHCLDS 08:34
PROVIDERS: Visit Provider Internal Medicine
DX: Z13.29 Encounter for screening for other suspected endocrine disorder (principal); M25.562 Pain in left knee; G89.29 Other chronic pain
CPT/HCPCS: 36415; 84443